=== PATIENT | female | born 1945 | race Caucasian/White ===

== ENCOUNTER 2016-03-30 12:46 | Day surgery (SDC) | payer MEDICARE ==
[2016-03-29 14:02] VITALS: BMI 25.4
[2016-03-30 13:23] VITALS: TEMP 97.4
[2016-03-30] MEDS ORDERED: LACTATED RINGERS 1,000 ML IV ONE (13:23)
[2016-03-30] MEDS ORDERED: LIDOCAINE 1% 20 ML VIAL (10MG/ML) FOR IV START INTRADERMA ONE (13:23)
[2016-03-30 13:26] LABS: Glucose,Whole Blood 86 mg/dL (75-99)
[2016-03-30] MEDS ORDERED: PROPOFOL 10 MG/ML 20 ML VIAL IV ONE (15:00)
[2016-03-30] MEDS ORDERED: LIDOCAINE 1% INJ 10MG/ML (20 ML MDV) ONE (15:00)
--- NOTE | 2016-03-30 15:06 | P.GSHP ---
History of Present Illness H&P Date: 03/30/16 Chief Complaint: GERD This a 70-year-old female who presents today for EGD. Patient a previous Mika fundal location approximately [address] [facility]. She has developed increasing reflux and GERD. Patient has had a previous esophagram shows slippage of her fundoplication as well as a small hiatal hernia. Past Medical History Past Medical History: Asthma, Cancer, GERD/Reflux, Hyperlipidemia, Pneumonia Additional Past Medical History / Comment(s): removed skin cancer, bells palsy 2 yrs ago,prednisone Feb 2016. History of Any Multi-Drug Resistant Organisms: None Reported Past Surgical History: Hysterectomy Additional Past Surgical History / Comment(s): jennifer eye cataract, right knee arthroscopy, Mika fundoplication Past Anesthesia/Blood Transfusion Reactions: Motion Sickness Past Psychological History: No Psychological Hx Reported Smoking Status: Former smoker Past Alcohol Use History: None Reported Additional Past Alcohol Use History / Comment(s): Patient was a smoker for 25 years of 1-2 packs per day and quit in 1991. She also gives history of alcohol abuse and has been sober for 35 years. Past Drug Use History: None Reported - Past Family History Mother Family Medical History: CVA/TIA, Myocardial Infarction ([place]) Additional Family Medical History / Comment(s): Mother at 73 from either massive myocardial infarction or CVA. Father Additional Family Medical History / Comment(s): Father at age 64 from emphysema. Brother(s) Additional Family Medical History / Comment(s): Patient has 4 brothers and one has diabetes,one brother committed suicide Sister(s) Additional Family Medical History / Comment(s): She has 2 sisters and one has paranoid schizophrenia. Medications and Allergies Home Medications Medication Instructions Recorded Confirmed Type Albuterol Nebulized [Ventolin 2.5 mg INHALATION RT-Q6H PRN 09/02/15 03/29/16 History Nebulized] Ascorbic Acid [Vitamin C] 500 mg PO DAILY 09/02/15 03/29/16 History Loratadine [Claritin] 10 mg PO HS 09/02/15 03/29/16 History Niacin 250 mg PO DAILY 09/02/15 03/29/16 History Pilocarpine [Salagen] 5 mg PO BID 09/02/15 03/29/16 History Simvastatin 20 mg PO HS 09/02/15 03/29/16 History Travoprost [Travatan Z 0.004%] 1 drop BOTH EYES HS 09/02/15 03/29/16 History Vitamin B Complex 1 tab PO DAILY 09/02/15 03/29/16 History clonazePAM [Clonazepam] 0.5 mg PO HS 09/02/15 03/29/16 History Calcium Carbonate/Vitamin D3 2 each PO HS 03/29/16 03/29/16 History [Calcium 600-Vit D3 400 Caplet] L.acidoph,Paracasei, B.lactis 1 each PO DAILY 03/29/16 03/29/16 History [Probiotic] Pantoprazole Sodium 40 mg PO HS 03/29/16 03/29/16 History Visionsheild Supplement 1 tab PO DAILY 03/29/16 03/29/16 History Allergies Allergy/AdvReac Type Severity Reaction Status Date / Time aspirin Allergy Rash/Hives Verified 03/29/16 13:57 Surgical - Exam Vital Signs Temp Pulse Resp BP Pulse Ox 97.4 F L 71 18 130/82 95 03/30/16 13:20 03/30/16 13:20 03/30/16 13:20 03/30/16 13:20 03/30/16 13:20 - General well developed, no distress - Eyes PERRL - ENT normal pinna - Neck no masses - Respiratory normal expansion - Cardiovascular Rhythm: regular - Abdomen Abdomen: soft, non tender Assessment and Plan Plan: GERD Slipped fundal plication We'll perform EGD.
--- NOTE | 2016-03-30 15:14 | P.OP ---
Date of Procedure: 03/30/16 Preoperative Diagnosis: GERD Postoperative Diagnosis: Slipped fundal plication Small hiatal hernia Procedure(s) Performed: EGD Anesthesia: MAC Surgeon: Gordo Berman Pathology: none sent Condition: stable Disposition: PACU Indications for Procedure: This a 70-year-old female who's had issues with GERD. She's had a previous Mika fundal plication performed 15 years ago in [facility]. Her recent esophagram shows evidence of a slipped fundoplication. Description of Procedure: The patient's placed on the endoscopy table in the lateral position. She received IV sedation. The gastroscope some placed oropharynx and passed into the esophagus and into the stomach. Scope was placed through the pylorus. The first and second portion of duodenum appeared normal. Scope was then brought back the antrum this appeared normal. Scope was retroflexed the remainder some appeared normal. There appeared to be evidence of a slipped fundoplication with fundal location being within a hiatal hernia. The distal esophagus appeared normal. The GE junction was at 38 cm. The proximal esophagus appeared normal. Scope was withdrawn for patient.
[2016-03-30 15:41] VITALS: BP 118/71; PULSE 68; RESP 16
== END 2016-03-30 15:55 | disposition home or self-care (01) ==
LOC: ORWHC2ENDO 12:46
PROVIDERS: ATTEND Surgery
DX: K91.89 Other postprocedural complications and disorders of digestive system (principal); K44.9 Diaphragmatic hernia without obstruction or gangrene; K21.9 Gastro-esophageal reflux disease without esophagitis; J45.909 Unspecified asthma, uncomplicated; E78.5 Hyperlipidemia, unspecified; Z88.6 Allergy status to analgesic agent; Z87.891 Personal history of nicotine dependence; Z87.01 Personal history of pneumonia (recurrent); Z79.899 Other long term (current) drug therapy; Z98.890 Other specified postprocedural states; Y83.8 Other surgical procedures as the cause of abnormal reaction of the patient, or of later complication, without mention of misadventure at the time of the procedure
CPT/HCPCS: 43235; J2001; J2704

== ENCOUNTER 2016-03-31 07:50 | Day surgery (SDC) | payer MEDICARE ==
[2016-03-29 10:32] VITALS: BMI 25.4
[~2016-03-31 07:50] MED LIST: DEXAMETHASONE SOD PHOSPHATE 10 MG/ML 1 ML VIAL IV ONE; LACTATED RINGERS 1,000 ML IV SCH; LIDOCAINE 1% 20 ML VIAL (10MG/ML) FOR IV START INTRADERMA PRN; MIDAZOLAM 2 MG/2 ML VIAL IV PRN; ONDANSETRON 4 MG/2 ML VIAL IVP ONE; SCOPOLAMINE 1.5MG/72HR PATCH TRANSDERM ONE
[2016-03-31] MEDS ORDERED: ceFAZolin 2 GM in SODIUM CHLORIDE 0.9% 100 ML IVPB STA (08:23)
[2016-03-31] MEDS ORDERED: HEPARIN SODIUM,PORCINE 5,000 UNIT/ML 1 ML VIAL SQ ONE (08:30)
[2016-03-31 08:38] LABS: Glucose,Whole Blood 90 mg/dL (75-99)
--- NOTE | 2016-03-31 09:20 | P.GSHP ---
History of Present Illness H&P Date: 03/31/16 Chief Complaint: T This a 70-year-old female who presents today for revision of her Mika fundoplication. The patient had her original fundoplication performed in [facility] Patient has developed a recurrent hiatal hernia and has a slipped fundoplication. She has had issues with GERD and dysphagia.The patient has had long-standing problems with reflux esophagitis. The patient underwent recent EGD is found have evidence of esophagitis. Patient has been well informed on the procedure of laparoscopic Mika fundoplication. The patient is aware the risk of the conversion to the open procedure, risk of injury to the stomach, liver and spleen. The patient is also a risk of recurrent GERD and dysphagia symptoms. The patient understands there is a postoperative diet of full liquids for 2 weeks after surgery. - Constitutional Constitutional: Reports as per HPI Past Medical History Past Medical History: Asthma, Cancer, GERD/Reflux, Hyperlipidemia, Pneumonia Additional Past Medical History / Comment(s): removed skin cancer, bells palsy 2 yrs ago,prednisone Feb 2016. History of Any Multi-Drug Resistant Organisms: None Reported Past Surgical History: Hysterectomy Additional Past Surgical History / Comment(s): jennifer eye cataract, right knee arthroscopy, Mika fundoplication Past Anesthesia/Blood Transfusion Reactions: Motion Sickness Past Psychological History: No Psychological Hx Reported Smoking Status: Former smoker Past Alcohol Use History: None Reported Additional Past Alcohol Use History / Comment(s): Patient was a smoker for 25 years of 1-2 packs per day and quit in 1991. She also gives history of alcohol abuse and has been sober for 35 years. Past Drug Use History: None Reported - Past Family History Mother Family Medical History: CVA/TIA, Myocardial Infarction ([place]) Additional Family Medical History / Comment(s): Mother at 73 from either massive myocardial infarction or CVA. Father Additional Family Medical History / Comment(s): Father at age 64 from emphysema. Brother(s) Additional Family Medical History / Comment(s): Patient has 4 brothers and one has diabetes,one brother committed suicide Sister(s) Additional Family Medical History / Comment(s): She has 2 sisters and one has paranoid schizophrenia. Medications and Allergies Home Medications Medication Instructions Recorded Confirmed Type Albuterol Nebulized [Ventolin 2.5 mg INHALATION RT-Q6H PRN 09/02/15 03/31/16 History Nebulized] Ascorbic Acid [Vitamin C] 500 mg PO DAILY 09/02/15 03/31/16 History Loratadine [Claritin] 10 mg PO HS 09/02/15 03/31/16 History Niacin 250 mg PO DAILY 09/02/15 03/31/16 History Pilocarpine [Salagen] 5 mg PO BID 09/02/15 03/31/16 History Simvastatin 20 mg PO HS 09/02/15 03/31/16 History Travoprost [Travatan Z 0.004%] 1 drop BOTH EYES HS 09/02/15 03/31/16 History Vitamin B Complex 1 tab PO DAILY 09/02/15 03/31/16 History clonazePAM [Clonazepam] 0.5 mg PO HS 09/02/15 03/31/16 History Calcium Carbonate/Vitamin D3 2 each PO HS 03/29/16 03/31/16 History [Calcium 600-Vit D3 400 Caplet] L.acidoph,Paracasei, B.lactis 1 each PO DAILY 03/29/16 03/31/16 History [Probiotic] Pantoprazole Sodium 40 mg PO HS 03/29/16 03/31/16 History Visionsheild Supplement 1 tab PO DAILY 03/29/16 03/31/16 History Allergies Allergy/AdvReac Type Severity Reaction Status Date / Time aspirin Allergy Rash/Hives Verified 03/31/16 08:03 Surgical - Exam Vital Signs Temp Pulse Resp BP Pulse Ox 97.7 F 77 16 131/83 94 L 03/31/16 08:18 03/31/16 08:18 03/31/16 08:18 03/31/16 08:18 03/31/16 08:18 - General well developed, no distress - Eyes PERRL - ENT normal pinna - Neck no masses - Respiratory normal expansion - Cardiovascular Rhythm: regular - Abdomen Abdomen: soft, non tender Assessment and Plan Plan: GERD. We will perform revision of laparoscopic Mika fundal plication.
[2016-03-31] MEDS ORDERED: NEOSTIGMINE 1 MG/ML 10 ML VIAL ONE (09:40)
[2016-03-31] MEDS ORDERED: SUCCINYLCHOLINE CHLORIDE 100 MG/5 ML SYR IV ONE (09:40)
[2016-03-31] MEDS ORDERED: PROPOFOL 10 MG/ML 20 ML VIAL IV ONE (09:40)
[2016-03-31] MEDS ORDERED: LIDOCAINE 1% INJ 10MG/ML (20 ML MDV) ONE (09:40)
[2016-03-31] MEDS ORDERED: METHYLENE BLUE 10 MG/ML 1 ML VIAL ONE (09:40)
[2016-03-31] MEDS ORDERED: ePHEDrine 50 MG/ML 1 ML AMP ONE (09:40)
[2016-03-31] MEDS ORDERED: GLYCOPYRROLATE 0.2 MG/ML 2 ML VIAL ONE (09:40)
[2016-03-31] MEDS ORDERED: ROCURONIUM BROMIDE 10 MG/ML 10 ML VIAL IV ONE (09:40)
[2016-03-31] MEDS ORDERED: fentaNYL (PF) 50 MCG/ML 2 ML AMP ONE (09:40)
[2016-03-31] MEDS ORDERED: MIDAZOLAM 2 MG/2 ML VIAL ONE (09:40)
[2016-03-31] MEDS ORDERED: BUPIVACAIN-EPI 0.25%-1:200,000 30 ML VIAL SQ ONE (10:15)
[2016-03-31] MEDS ORDERED: METHYLENE BLUE IV STA ×2 (10:58)
[2016-03-31] MEDS ORDERED: SODIUM CHLORIDE 0.9% IV STA ×2 (10:58)
[2016-03-31] MEDS ORDERED: NALOXONE 0.4 MG/ML 1 ML VIAL IV PRN (11:46)
[2016-03-31] MEDS ORDERED: HYDROmorphone 1 MG/ML 1 ML SYRINGE IVP PRN (11:46)
[2016-03-31] MEDS ORDERED: HYDROcodone/APAP 5-325MG 1 EACH TAB PO PRN (11:46)
[2016-03-31] MEDS ORDERED: ONDANSETRON 4 MG/2 ML VIAL IVP PRN (11:46)
[2016-03-31] MEDS ORDERED: LACTATED RINGERS 1,000 ML IV ONE (11:46)
--- NOTE | 2016-03-31 11:46 | P.OP ---
Date of Procedure: 03/31/16 Preoperative Diagnosis: GERD Dysphagia Postoperative Diagnosis: GERD Dysphagia Recurrent hiatal hernia with subsequent fundoplication Procedure(s) Performed: Laparoscopic Mika fundal plication with mesh repair of hiatal hernia Anesthesia: SIMONE Surgeon: Gordo Berman Estimated Blood Loss (ml): 25 Pathology: none sent Condition: stable Disposition: PACU Description of Procedure: The was placed on the operating table in the supine position. The patient received general anesthesia. And was placed in dorsal lithotomy position. The patient was prepped and draped in the usual sterile fashion. The skin incision sites were anesthetized with 1% local Xylocaine. The skin was incised in the left periumbilical area and then using a blade less 5 mm trocar under direct visualization panel cavity was entered. After adequate insufflation the laparoscope was then placed into the peritoneal cavity. Next a 5 mm trochars placed in the right epigastric position. Another 5 millimeter trocar the right lateral position. Another 5 millimeter trocar in the left lateral position a 5 mm trocar is placed in the left epigastric position. And then the initial 5 mm trocar was exchanged for a 10 mm trocar. The left lateral lobe liver was retracted. There were extensive adhesions between the stomach and liver. These were lysed with sharp dissection and the Harmonic scissors. The hernia was seen. The previous fundoplication wrap was seen to be in the chest. This was brought down after the stomach and esophagus were mobilized. The crural defect was then dissected using the Harmonic scissors device. A 360 crural dissection was performed the esophagus stomach was reduced back into the peritoneal Cavity. The crural defect was then closed using 2-0 Ethibond suture. Next the previous fundal plication was taken and sharp dissection.. and then a 58-Zambian bougie dilator was placed oropharynx passed into the esophagus and stomach the fundal plication wrap was then performed by grasping the fundus posteriorly and bringing it around the esophagus and 180 stomach fundoplication was then performed using 2-0 Ethibond suture. Care was taken that the esophagus was in the peritoneal cavity.. There was no injury seen to the stomach or esophagus. The stomach and esophagus were filled with 6 mL of methylene blue normal saline. There is no extravasation or leak. The dilator was then withdrawn. The abdomen was irrigated there is no bleeding seen. The trochars were then withdrawn and then skin incision sites were closed using 3-0 Monocryl suture Steri-Strips are applied. Patient thought procedure well and sent to recovery room in stable condition.
[2016-03-31] MEDS: HYDROmorphone 1 MG/ML 1 ML SYRINGE IVP PRN ×2 (11:56→12:01)
[2016-03-31] MEDS ORDERED: ALBUTEROL NEBULIZED 2.5 MG/3 ML INHALATION PRN (13:44)
--- NOTE | 2016-03-31 13:44 | P.CONS ---
History of Present Illness - Reason for Consult Consult date: 03/31/16 Medical management Requesting physician: Gordo Berman - Chief Complaint Post Mika fundoplication revision. - History of Present Illness This is a 70-year-old female patient of mine. She has a past medical history for COPD, gastroesophageal reflux disease, hyperlipidemia, skin cancer, Young's palsy, patient had a Mika fundoplication that was done back in [facility] many years ago and she had an evidence of severe esophagitis and recent EGD that was done by Dr. Berman subsequent she underwent the Mika fundoplication revision today and we were asked to see the patient for medical management. Patient denies any chest pain, short of breath, she has no abdominal pain, nausea, vomiting, diarrhea. Patient is complaining of pain in both shoulders and it was explained for the patient that this is coming from laparoscopic inactive gase. Review of Systems Constitutional: Denies anorexia, Denies chronic headaches, Denies fever, Denies lethargy, Denies weakness, Denies weight gain, Denies weight loss Eyes: denies blurred vision, denies bulging eye, denies decreased vision Ears: deny: decreased hearing Ears, nose, mouth and throat: Denies dysphagia, Denies neck lump, Denies sore throat, Denies vertigo Cardiovascular: Denies chest pain, Denies dyspnea on exertion, Denies edema, Denies phlebitis, Denies rapid heart beat, Denies shortness of breath, Denies syncope Respiratory: Denies cough, Denies cough with sputum, Denies home oxygen, Denies sleep apnea, Denies snoring, Denies wheezing Gastrointestinal: Reports heartburn, Denies abdominal pain, Denies belching, Denies bloating, Denies hematemesis, Denies melena, Denies nausea, Denies vomiting Genitourinary: Denies dysuria, Denies hematuria Musculoskeletal: Denies myalgias Musculoskeletal: absent: ankle pain, ankle stiffness, ankle swelling, elbow pain , elbow stiffness, elbow swelling, foot pain, foot stiffness, foot swelling, hand pain, hand stiffness, hand swelling, hip pain, hip stiffness, hip swelling , knee pain, knee stiffness, knee swelling, shoulder pain, shoulder stiffness, shoulder swelling, wrist pain, wrist stiffness, wrist swelling Integumentary: Denies pruritus, Denies rash Neurological: Denies numbness, Denies weakness Psychiatric: Denies anxiety, Denies depression Endocrine: Denies fatigue, Denies weight change Past Medical History Past Medical History: Asthma, Cancer, GERD/Reflux, Hyperlipidemia, Pneumonia Additional Past Medical History / Comment(s): removed skin cancer, bells palsy 2 yrs ago,prednisone Feb 2016. History of Any Multi-Drug Resistant Organisms: None Reported Past Surgical History: Hysterectomy Additional Past Surgical History / Comment(s): jennifer eye cataract, right knee arthroscopy, Mika fundoplication Past Anesthesia/Blood Transfusion Reactions: Motion Sickness Past Psychological History: No Psychological Hx Reported Smoking Status: Former smoker Past Alcohol Use History: None Reported Additional Past Alcohol Use History / Comment(s): Patient was a smoker for 25 years of 1-2 packs per day and quit in 1991. She also gives history of alcohol abuse and has been sober for 35 years. Past Drug Use History: None Reported - Past Family History Mother Family Medical History: CVA/TIA, Myocardial Infarction ([place]) Additional Family Medical History / Comment(s): Mother at 73 from either massive myocardial infarction or CVA. Father Additional Family Medical History / Comment(s): Father at age 64 from emphysema. Brother(s) Additional Family Medical History / Comment(s): Patient has 4 brothers and one has diabetes,one brother committed suicide Sister(s) Additional Family Medical History / Comment(s): She has 2 sisters and one has paranoid schizophrenia. Medications and Allergies Home Medications Medication Instructions Recorded Confirmed Type Albuterol Nebulized [Ventolin 2.5 mg INHALATION RT-Q6H PRN 09/02/15 03/31/16 History Nebulized] Ascorbic Acid [Vitamin C] 500 mg PO DAILY 09/02/15 03/31/16 History Loratadine [Claritin] 10 mg PO HS 09/02/15 03/31/16 History Niacin 250 mg PO DAILY 09/02/15 03/31/16 History Pilocarpine [Salagen] 5 mg PO BID 09/02/15 03/31/16 History Simvastatin 20 mg PO HS 09/02/15 03/31/16 History Travoprost [Travatan Z 0.004%] 1 drop BOTH EYES HS 09/02/15 03/31/16 History Vitamin B Complex 1 tab PO DAILY 09/02/15 03/31/16 History clonazePAM [Clonazepam] 0.5 mg PO HS 09/02/15 03/31/16 History Calcium Carbonate/Vitamin D3 2 each PO HS 03/29/16 03/31/16 History [Calcium 600-Vit D3 400 Caplet] L.acidoph,Paracasei, B.lactis 1 each PO DAILY 03/29/16 03/31/16 History [Probiotic] Pantoprazole Sodium 40 mg PO HS 03/29/16 03/31/16 History Visionsheild Supplement 1 tab PO DAILY 03/29/16 03/31/16 History Allergies Allergy/AdvReac Type Severity Reaction Status Date / Time aspirin Allergy Rash/Hives Verified 03/31/16 13:36 Physical Exam Vitals: Vital Signs Temp Pulse Pulse Resp BP BP Pulse Ox 03/31/16 12:45 97.0 F L 63 16 130/78 99 03/31/16 12:26 71 16 132/64 99 03/31/16 12:15 74 17 127/71 98 03/31/16 12:00 76 16 123/68 99 03/31/16 11:51 98.2 F 80 16 131/70 98 03/31/16 08:18 97.7 F 77 16 131/83 94 L Intake and Output 03/30/16 03/31/16 03/31/16 22:59 06:59 14:59 Intake Total 1500 Output Total 15 Balance 1485 Intake: IV 1500 Output: Estimated Blood Loss 15 - Constitutional General appearance: no acute distress - EENT Eyes: anicteric sclerae, PERRLA, no ptosis, no scleral icterus, normal appearance ENT: hearing grossly normal, normal oropharynx, no thrush Ears: bilateral: normal - Neck Neck: no lymphadenopathy, normal ROM, no rigidity, no stridor, no thyromegaly Carotids: bilateral: upstroke normal Thyroid: bilateral: normal size - Respiratory Respiratory: bilateral: diminished, negative: dullness, rales, rhonchi, wheezing , prolonged expiration, prolonged inspiration - Cardiovascular Rhythm: regular Heart sounds: normal: S1, S2 Abnormal Heart Sounds: no systolic murmur, no rub, no S3 Gallop, no S4 Gallop, no click - Gastrointestinal General gastrointestinal: decreased bowel sounds, soft, no splenomegaly, no tenderness, no umbilical hernia, no ventral hernia - Integumentary Integumentary: normal, normal turgor - Neurologic Neurologic: CNII-XII intact - Musculoskeletal Musculoskeletal: strength equal bilaterally - Psychiatric Psychiatric: A&O x's 3, appropriate affect, intact judgment & insight Assessment and Plan Plan: Assessment and plan: 1. Post operative day 0 status post Mika fundoplication. Continue patient on spirometer to reduce the incidence of atelectasis and hospital-acquired pneumonia, continue current DVT prophylaxis, pain management as outlined by general surgery, patient is going for an esophagram later on today. 2. COPD, stable. Patient normally on Ventolin inhaler every 6 hours as needed. 3. Gastroesophageal reflux disease. continue Protonix 40 mg orally once a daily. 4. Hyperlipidemia. Continue Zocor 10 mg daily. 5. History of skin cancer, stable. 6. History of Young's palsy, stable. 7. ALLERGIC rhinitis. Hold off Claritin for now. 8. Glaucoma. Continue current eyedrops. 9. DVT prophylaxis. Bilateral knee-high HAMZAH hose, bilateral SCDs. 10. GI prophylaxis. Continue PPI. 11. Thank you for this consult we will follow the patient with you.
--- NOTE | 2016-03-31 16:21 | FL ---
EXAMINATION TYPE: FL UGI w esophagus DATE OF EXAM: 03/31/2016 4:04 PM COMPARISON: 03/09/2016 HISTORY: Post Rupesh fundoplasty TECHNIQUE: A single/double contrast UGI study is performed. FINDINGS: Surgery Assistant image of the abdomen shows no gross abnormality. There is no evidence of extravasation. There are tertiary contractions of the esophagus and mild reanna y at the level of GE junction. There is some contrast spilling into the stomach without evidence of c omplete obstruction. Fluoroscopy of 32 seconds provided. IMPRESSION: 1. Moderate delay at the GE junction. No extravasation.
[2016-03-31] MEDS: traMADol 50 MG TAB PO PRN (17:08)
--- NOTE | 2016-03-31 17:24 | P.CNPUL ---
History of Present Illness Consult date: 03/31/16 Requesting physician: Gordo Berman Reason for consult: dyspnea Chief complaint: Chronic cough History of present illness: This is a very pleasant 70-year-old female patient who follows with Dr. Munroe as her primary care physician. She has a history of hyperlipidemia, gastroesophageal reflux, skin cancer, Young's palsy, asthma. Back in December 2015 she developed increasing cough congestion and shortness of breath. She was treated with antibiotics 3 without significant improvement. A computed tomography scan of the chest in February 2016 revealed some right lower lobe atelectasis suspected underlying pneumonia. She was referred to Dr. Arredondo whom she had seen in our office recently. He did appropriate testing and told the patient she does not have COPD. She may have some mild intermittent asthma which is exacerbated by her acid reflux. She has been maintained on albuterol only. Her Singulair was discontinued. She is not on any maintenance inhalers. She has a history of previous Mika fundoplication several years ago secondary to severe esophagitis. Based on her recent symptoms and chronic cough despite multiple rounds of antibiotics she was referred to Dr. Berman who performed a revision of her Mika fundoplication today. She is seen today in consultation. She is currently awake and alert in no acute distress. She denies any worsening shortness of breath, cough or congestion. She has some pain on deep inhalation but had not required any significant pain medications. She had a postop barium swallow which revealed moderate delay at the GE junction but no extravasation. She is maintaining good O2 saturations in the upper 90s to 100% on 2 L per nasal cannula. She has been afebrile. No pulmonary complaints. Review of Systems 14 point review of system was conducted. All negative other than as mentioned in HPI. Past Medical History Past Medical History: Asthma, Cancer, GERD/Reflux, Hyperlipidemia, Pneumonia Additional Past Medical History / Comment(s): removed skin cancer, bells palsy 2 yrs ago,prednisone Feb 2016. History of Any Multi-Drug Resistant Organisms: None Reported Past Surgical History: Hysterectomy Additional Past Surgical History / Comment(s): jennifer eye cataract, right knee arthroscopy, Mika fundoplication Past Anesthesia/Blood Transfusion Reactions: Motion Sickness Past Psychological History: No Psychological Hx Reported Smoking Status: Former smoker Past Alcohol Use History: None Reported Additional Past Alcohol Use History / Comment(s): Patient was a smoker for 25 years of 1-2 packs per day and quit in 1991. She also gives history of alcohol abuse and has been sober for 35 years. Past Drug Use History: None Reported - Past Family History Mother Family Medical History: CVA/TIA, Myocardial Infarction (ID) Additional Family Medical History / Comment(s): Mother at 73 from either massive myocardial infarction or CVA. Father Additional Family Medical History / Comment(s): Father at age 64 from emphysema. Brother(s) Additional Family Medical History / Comment(s): Patient has 4 brothers and one has diabetes,one brother committed suicide Sister(s) Additional Family Medical History / Comment(s): She has 2 sisters and one has paranoid schizophrenia. Medications and Allergies Home Medications Medication Instructions Recorded Confirmed Type Albuterol Nebulized [Ventolin 2.5 mg INHALATION RT-Q6H PRN 09/02/15 03/31/16 History Nebulized] Ascorbic Acid [Vitamin C] 500 mg PO DAILY 09/02/15 03/31/16 History Loratadine [Claritin] 10 mg PO HS 09/02/15 03/31/16 History Niacin 250 mg PO DAILY 09/02/15 03/31/16 History Pilocarpine [Salagen] 5 mg PO BID 09/02/15 03/31/16 History Simvastatin 20 mg PO HS 09/02/15 03/31/16 History Travoprost [Travatan Z 0.004%] 1 drop BOTH EYES HS 09/02/15 03/31/16 History Vitamin B Complex 1 tab PO DAILY 09/02/15 03/31/16 History clonazePAM [Clonazepam] 0.5 mg PO HS 09/02/15 03/31/16 History Calcium Carbonate/Vitamin D3 2 each PO HS 03/29/16 03/31/16 History [Calcium 600-Vit D3 400 Caplet] L.acidoph,Paracasei, B.lactis 1 each PO DAILY 03/29/16 03/31/16 History [Probiotic] Pantoprazole Sodium 40 mg PO HS 03/29/16 03/31/16 History Visionsheild Supplement 1 tab PO DAILY 03/29/16 03/31/16 History Allergies Allergy/AdvReac Type Severity Reaction Status Date / Time aspirin Allergy Rash/Hives Verified 03/31/16 13:36 Physical Exam Vitals: Vital Signs Temp Pulse Pulse Resp BP BP Pulse Ox 03/31/16 14:30 75 128/81 03/31/16 14:00 68 18 130/82 98 03/31/16 13:30 74 16 129/86 03/31/16 13:15 65 16 127/75 100 03/31/16 13:00 66 16 126/80 100 03/31/16 12:45 97.0 F L 63 16 130/78 99 03/31/16 12:26 71 16 132/64 99 03/31/16 12:15 74 17 127/71 98 03/31/16 12:00 76 16 123/68 99 03/31/16 11:51 98.2 F 80 16 131/70 98 03/31/16 08:18 97.7 F 77 16 131/83 94 L Intake and Output 03/31/16 03/31/16 03/31/16 06:59 14:59 22:59 Intake Total 1530 Output Total 15 100 Balance 1515 -100 Intake: IV 1500 Oral 30 Output: Urine 100 Estimated Blood Loss 15 Other: Weight 71.668 kg Patient Weight 04/01/16 06:59 Weight 71.668 kg GENERAL EXAM: Alert, comfortable in no apparent distress. HEAD: Normocephalic. EYES: Normal reaction of pupils, equal size. NOSE: Clear with pink turbinates. THROAT: No erythema or exudates. NECK: No masses, no JVD. CHEST: No chest wall deformity. LUNGS: Equal air entry with no crackles, wheeze, rhonchi or dullness. CVS: S1 and S2 normal with no audible murmurs, regular rhythm. ABDOMEN: Soft, tender to palpation. Laparoscopic surgical sites are clean dry well approximated. SPINE: No scoliosis or deformity SKIN: No rashes CENTRAL NERVOUS SYSTEM: No focal deficits, tone is normal in all 4 extremities. Extremities: There is no significant peripheral edema. No clubbing, no cyanosis. Peripheral pulses are intact. Assessment and Plan Plan: Impression: #1 Chronic cough secondary to acid reflux. Status post revision of a Rupesh fundoplication. Postoperative day #0. #2 Mild intermittent chronic bronchial asthma, currently inactive and stable. #3 Recent suspected right lower lobe atelectasis/pneumonia treated in the outpatient setting. #4 Hyperlipidemia. Plan: The patient was seen and evaluated by Dr. Betancur. The patient currently has no pulmonary complaints. We have requested incentive spirometer and encouraged patient regarding its increased use and cough and deep breathing exercises. We' ll increase her activity as tolerated. She'll have albuterol nebulized treatments available if needed. We will obtain a chest x-ray in the a.m. We' ll continue to follow make further recommendations based on her clinical status.
[2016-03-31] MEDS: PILOCARPINE 5 MG TAB PO SCH (20:50)
[2016-03-31] MEDS ORDERED: ATORVASTATIN 10 MG TAB PO SCH (21:00)
[2016-03-31] MEDS ORDERED: clonazePAM 0.5 MG TAB PO SCH (21:00)
[2016-03-31] MEDS ORDERED: PANTOPRAZOLE 40 MG TABLET PO SCH (21:00)
[2016-03-31] MEDS ORDERED: LATANOPROST 0.005% OPHTH DROPS 2.5 ML BTL BOTH EYES SCH (21:00)
[2016-04-01] MEDS: traMADol 50 MG TAB PO PRN ×2 (00:27→08:14)
[2016-04-01] MEDS ORDERED: Pre Op ABX Message 1 EACH MISC MISCELLANE ONE (05:00)
[2016-04-01 06:52] LABS: Basophils % (A) 0 %; CH 30.7; CHCM 34.8; Eosinophils % (A) 0 %; HCT 36.3 % (34.0-46.0); HDW 2.45; HGB 12.3 gm/dL (11.4-16.0); Luc # (Auto) 0.16; Luc % (Auto) 2; Lymphocytes # (A) 1.3 k/uL (1.0-4.8); Lymphocytes % (A) 16 %; MCHC 33.9 g/dL (31.0-37.0); MCV 88.5 fL (80.0-100.0); Mean Platelet Volume 7.9; Monocytes # (A) 0.6 k/uL (0-1.0); Monocytes % (A) 7 %; Neutrophils # (A) 6.3 k/uL (1.3-7.7); Neutrophils % (A) 75 %; RDW 12.9 % (11.5-15.5); WBC 8.4 k/uL (3.8-10.6); WBC (Perox) 8.64
[2016-04-01 07:07] LABS: Anion Gap 7 mmol/L; Blood Urea Nitrogen 12 mg/dL (7-17); Carbon Dioxide 27 mmol/L (22-30); Chloride 106 mmol/L (98-107); Glucose 101 mg/dL (74-99); Non-African American GFR(MDRD) 58 (>60 ml/min/1.73 sqM); Potassium 4.1 mmol/L (3.5-5.1); Sodium 140 mmol/L (137-145)
--- NOTE | 2016-04-01 08:43 | XR ---
EXAMINATION TYPE: XR chest 1V portable DATE OF EXAM: 04/01/2016 8:39 AM HISTORY: Shortness of breath. COMPARISON: 02/16/2016 TECHNIQUE: Single view of the chest is submitted. FINDINGS: Demonstrated are scattered senescent parenchymal change. There is no evidence for focal infiltrate. The heart is stable. Hilar and mediastinal structures are within normal limits. Degenerative changes are seen of the dorsal spine. IMPRESSION: 1. Chronic changes without evidence for acute pulmonary disease.
[2016-04-01] MEDS: PILOCARPINE 5 MG TAB PO SCH (08:49)
[2016-04-01 11:58] VITALS: BP 127/72; RESP 20; TEMP 97.7
[2016-04-01 13:21] VITALS: PULSE 89
--- NOTE | 2016-04-01 13:44 | P.DS ---
Providers Date of admission: 03/31/2016 Expected date of discharge: 04/01/16 Attending physician: Gordo Berman Consults: 03/31/16 11:46 Consult Physician Routine Consulting Provider: Demetri Arredondo Consult Reason/Comments: Aspiration pneumonia, GERD Do you want consulting provider notified?: Yes Consult Physician Routine Consulting Provider: Penny Munroe Consult Reason/Comments: Medical management Do you want consulting provider notified?: Yes Primary care physician: Penny Munroe Hospital Course: Patient is a 70-year-old female with medical history significant for fundoplication performed in [facility] several years ago. Patient developed a recurrent current hiatal hernia and has a slipped fundoplication. Patient had problems with GERD and dysphagia. Patient presented to the hospital for elective laparoscopic Rupesh fundoplication with mesh repair of hiatal hernia. Patient tolerated procedure well. Postop barium swallow with evidence of moderate delay at the GE junction but extravasation. Patient had an uneventful postop recovery with no complaints of dysphagia and tolerating diet. Patient was deemed stable for discharge to home with follow-up in the outpatient setting as directed. Discharge diagnoses: 1. GERD 2. Dysphagia. 3. Recurrent hiatal hernia with subsequent fundoplication. 4. Status post laparoscopic Rupesh fundoplication with mesh repair of hiatal hernia. The above impression and plan have been discussed and directed by Dr. Berman. Ted VIEIRA acting as scribe for Dr. Berman. Pertinent Studies: Upper GI/barium swallow x-ray; chest x-ray Procedures: Laparoscopic Mika fundoplication with mesh repair of hiatal hernia Patient Condition at Discharge: Good Plan - Discharge Summary New Discharge Prescriptions: HYDROcodone/APAP 7.5-325MG [Alden 7.5-325] 1 tab PO Q6HR PRN #28 tab PRN Reason: Pain Discharge Medication List Albuterol Nebulized [Ventolin Nebulized] 2.5 mg INHALATION RT-Q6H PRN 09/02/15 [ History] Ascorbic Acid [Vitamin C] 500 mg PO DAILY 09/02/15 [History] Loratadine [Claritin] 10 mg PO HS 09/02/15 [History] Niacin 250 mg PO DAILY 09/02/15 [History] Pilocarpine [Salagen] 5 mg PO BID 09/02/15 [History] Simvastatin 20 mg PO HS 09/02/15 [History] Travoprost [Travatan Z 0.004%] 1 drop BOTH EYES HS 09/02/15 [History] Vitamin B Complex 1 tab PO DAILY 09/02/15 [History] clonazePAM [Clonazepam] 0.5 mg PO HS 09/02/15 [History] Calcium Carbonate/Vitamin D3 [Calcium 600-Vit D3 400 Caplet] 2 each PO HS [History] L.acidoph,Paracasei, B.lactis [Probiotic] 1 each PO DAILY 03/29/16 [History] Visionsheild Supplement 1 tab PO DAILY 03/29/16 [History] HYDROcodone/APAP 7.5-325MG [Alden 7.5-325] 1 tab PO Q6HR PRN #28 tab 03/31/16 [ Rx] Follow up Appointment(s)/Referral(s): Penny Munroe MD [Primary Care Provider] - 1 Week Gordo Berman MD [STAFF PHYSICIAN] - 2 Weeks Patient Instructions/Handouts: *Surgery [facility] - ([facility]) Lap Mika Fundiplication Post-Op Instructions Activity/Diet/Wound Care/Special Instructions: No heavy lifting, pushing, or pulling items greater than 10 pounds. Full liquid diet for 2 weeks. No caffeinated beverages or straws. Shower daily, no soaking in bath tubs, pools, or hot tubs. No driving while taking pain medication. Notify surgeon with any signs or symptoms of infection, increased pain, or not tolerating diet. OK TO MALL WALK TO TOLERANCE, NO HEAVY LIFTING RETURN TO DR. SOONER FOR ANY PROBLEMS OR CONCERNS. IE FEVER, WORSENING COUGH, SHORTNESS OR BREATH, LETHARGY, REDNESS, UNUSUAL DRNG OR REDNESS FROM INCISION SITES USE INCENTIVE SPIROMETRY AT HOME. Discharge Disposition: HOME SELF-CARE
--- NOTE | 2016-04-01 15:34 | P.PN ---
Subjective This is a very pleasant 70-year-old female patient who follows with Dr. Munroe as her primary care physician. She has a history of hyperlipidemia, gastroesophageal reflux, skin cancer, Young's palsy, asthma. Back in December 2015 she developed increasing cough congestion and shortness of breath. She was treated with antibiotics 3 without significant improvement. A computed tomography scan of the chest in February 2016 revealed some right lower lobe atelectasis suspected underlying pneumonia. She was referred to Dr. Arredondo whom she had seen in our office recently. He did appropriate testing and told the patient she does not have COPD. She may have some mild intermittent asthma which is exacerbated by her acid reflux. She has been maintained on albuterol only. Her Singulair was discontinued. She is not on any maintenance inhalers. She has a history of previous Mika fundoplication several years ago secondary to severe esophagitis. Based on her recent symptoms and chronic cough despite multiple rounds of antibiotics she was referred to Dr. Berman who performed a revision of her Mika fundoplication yesterday. She is seen again today 04/01/2016 in follow-up. She is awake and alert in no acute distress. She has no pulmonary complaints. She's been maintaining good O2 saturations in the 90s on room air. No significant cough or congestion. No chills or night sweats. She is anxious to go home. Objective - Vital Signs Vital signs: Vital Signs Temp 97.7 F 04/01/16 11:35 Pulse 89 04/01/16 13:00 Resp 20 04/01/16 11:35 BP 127/72 04/01/16 11:35 Pulse Ox 91 L 04/01/16 13:00 Intake & Output 03/31/16 04/01/16 04/01/16 18:59 06:59 18:59 Intake Total 1530 300 200 Output Total 115 400 Balance 1415 -100 200 Weight 71.668 kg Intake: IV 1500 Oral 30 300 200 Output: Urine 100 400 Estimated Blood Loss 15 Other: Voiding Method Toilet # Voids 1 1 - Exam GENERAL EXAM: Alert, active, comfortable in no apparent distress. HEAD: Normocephalic. EYES: Normal reaction of pupils, equal size. NOSE: Clear with pink turbinates. THROAT: No erythema or exudates. NECK: No masses, no JVD. CHEST: No chest wall deformity. LUNGS: Equal air entry with no crackles, wheeze, rhonchi or dullness. CVS: S1 and S2 normal with no audible mumurs, regular rhythm. ABDOMEN: Soft, normal bowel sounds, no guarding or rigidity. Surgical sites are clean dry well approximated. SPINE: No scoliosis or deformity SKIN: No rashes CENTRAL NERVOUS SYSTEM: No focal deficits, tone is normal in all 4 extremities. Extremities: There is no significant peripheral edema no clubbing no cyanosis peripheral pulses are intact. - Labs CBC & Chem 7: 04/01/16 06:37 04/01/16 06:37 Labs: Abnormal Lab Results - Last 24 Hours (Table) 04/01/16 Range/Units 06:37 Glucose 101 H (74-99) mg/dL Assessment and Plan Plan: Impression: #1 Chronic cough secondary to acid reflux. Status post revision of a Mika fundoplication. Postoperative day #1. #2 Mild intermittent chronic bronchial asthma, currently inactive and stable. #3 Recent suspected right lower lobe atelectasis/pneumonia treated in the outpatient setting. #4 Hyperlipidemia. Plan: The patient was seen and evaluated by Dr. Betancur. The patient currently has no pulmonary complaints. She's been up ambulating without significant shortness of breath. No cough or congestion. She is doing well at the incentive spirometer. She is cleared for discharge from the pulmonary standpoint. She'll follow-up with Dr. Arredondo in our office as scheduled. She is encouraged to call sooner with any pulmonary symptoms or other questions or concerns.
--- NOTE | 2016-04-08 15:50 | P.PN ---
Subjective This is a 70-year-old female patient of [facility]. She has a past medical history for COPD, gastroesophageal reflux disease, hyperlipidemia, skin cancer, Young's palsy, patient had a Mika fundoplication that was done back in [facility] many years ago and she had an evidence of severe esophagitis and recent EGD that was done by Dr. Berman subsequent she underwent the Mika fundoplication revision today and we were asked to see the patient for medical management. Patient denies any chest pain, short of breath, she has no abdominal pain, nausea, vomiting, diarrhea. Patient is complaining of pain in both shoulders and it was explained for the patient that this is coming from laparoscopic inactive gas. Pulse ox is 91% on room air. Chest x-ray shows chronic changes. Shoulder ache is gone. Patient is scheduled for discharge home today. . Objective - Vital Signs Vital signs: Vital Signs Temp 98.3 F 04/01/16 08:00 Pulse 84 04/01/16 08:00 Resp 16 04/01/16 08:00 BP 123/71 04/01/16 08:00 Pulse Ox 91 L 04/01/16 08:00 Intake & Output 03/31/16 04/01/16 04/01/16 18:59 06:59 18:59 Intake Total 1530 300 Output Total 115 400 Balance 1415 -100 Weight 71.668 kg Intake: IV 1500 Oral 30 300 Output: Urine 100 400 Estimated Blood Loss 15 Other: Voiding Method Toilet # Voids 1 - Exam General appearance: no acute distress - EENT Eyes: anicteric sclerae, PERRLA, no ptosis, no scleral icterus, normal appearance ENT: hearing grossly normal, normal oropharynx, no thrush Ears: bilateral: normal - Neck Neck: no lymphadenopathy, normal ROM, no rigidity, no stridor, no thyromegaly Carotids: bilateral: upstroke normal Thyroid: bilateral: normal size - Respiratory Respiratory: bilateral: diminished, negative: dullness, rales, rhonchi, wheezing , prolonged expiration, prolonged inspiration - Cardiovascular Rhythm: regular Heart sounds: normal: S1, S2 Abnormal Heart Sounds: no systolic murmur, no rub, no S3 Gallop, no S4 Gallop, no click - Gastrointestinal General gastrointestinal: decreased bowel sounds, soft, no splenomegaly, no tenderness, no umbilical hernia, no ventral hernia - Integumentary Integumentary: normal, normal turgor - Neurologic Neurologic: CNII-XII intact - Musculoskeletal Musculoskeletal: strength equal bilaterally - Psychiatric Psychiatric: A&O x's 3, appropriate affect, intact judgment & insight - Labs CBC & Chem 7: 04/01/16 06:37 04/01/16 06:37 Labs: Abnormal Lab Results - Last 24 Hours (Table) 04/01/16 Range/Units 06:37 Glucose 101 H (74-99) mg/dL Assessment and Plan Plan: 1. Status post Mika fundoplication. Continue patient on spirometer to reduce the incidence of atelectasis and hospital-acquired pneumonia, continue current DVT prophylaxis, pain management as outlined by general surgery, patient is going for an esophagram later on today. 2. COPD, stable. Patient normally on Ventolin inhaler every 6 hours as needed. 3. Gastroesophageal reflux disease. continue Protonix 40 mg orally once a daily. 4. Hyperlipidemia. Continue Zocor 10 mg daily. 5. History of skin cancer, stable. 6. History of Young's palsy, stable. 7. ALLERGIC rhinitis. Hold off Claritin for now. 8. Glaucoma. Continue current eyedrops. 9. DVT prophylaxis. Bilateral knee-high HAMZAH hose, bilateral SCDs. 10. GI prophylaxis. Continue PPI. Impression and plan of care have been directed as dictated by the signing physician. Patti Cannon nurse practitioner acting as scribe for signing physician. Time with Patient: Greater than 30
== END 2016-04-01 13:14 | disposition home or self-care (01) ==
LOC: OR 07:50 → 6PED 11:40 → OR 04-01 13:14
PROVIDERS: ATTEND Surgery
DX: K44.9 Diaphragmatic hernia without obstruction or gangrene (principal); K91.89 Other postprocedural complications and disorders of digestive system; R13.10 Dysphagia, unspecified; K21.9 Gastro-esophageal reflux disease without esophagitis; E78.5 Hyperlipidemia, unspecified; Z87.891 Personal history of nicotine dependence; G51.0 Bell's palsy; Z79.899 Other long term (current) drug therapy; Z88.6 Allergy status to analgesic agent
CPT/HCPCS: 43282; 80048; 85025; 71010; 74240; C1781; J2250; J1644; J1100; J2710; J0690; J2405; J2001; Q9968; J3010; J1170; J0330; J2704

== ENCOUNTER → 2017-10-25 | Outpatient (CLI) | payer MEDICARE ==
--- NOTE | 2017-10-25 12:59 | FL ---
EXAMINATION TYPE: Esophagram- Limited UGI DATE OF EXAM: 10/25/2017 LIMITED UGI-ESOPHAGRAM: CLINICAL HISTORY: History of Rupesh fundoplication surgery March 31, 2016 with recurrent epigastri c pain. TECHNIQUE: Limited esophagram is performed utilizing 2-10 oz of thin liquid barium. A total of 8 sec onds of fluoroscopic time was utilized during procedure. 11 spot images are acquired. Comparison: Prior upper GI March 31, 2016. FINDINGS: The patient swallowed contrast without difficulty or delay. Esophageal peristalsis and mo tility are within normal limits. There is good flow of contrast along the diaphragmatic hiatus into t he stomach, there is no evidence of contrast extravasation to suggest leak. No recurrent hiatal herni a is seen. Patient remains asymptomatic. IMPRESSION: No evidence of recurrent hiatal hernia or significant obstruction status post Rupesh fund oplication surgery March 31, 2016.
== END | disposition home or self-care (01) ==
LOC: RADFLMAIN 11:29
PROVIDERS: ATTEND Internal Medicine Geriatric Medicine
DX: R13.10 Dysphagia, unspecified (principal); Z98.890 Other specified postprocedural states
CPT/HCPCS: 74220

== ENCOUNTER → 2018-02-16 | Outpatient (CLI) | payer MEDICARE | END | disposition home or self-care (01) | LOC: LABWHC1 15:02 | PROVIDERS: ATTEND Ophthalmology | DX: H47.20 Unspecified optic atrophy (principal) | CPT/HCPCS: 36415; 82565; 84520 ==

== ENCOUNTER → 2018-02-19 | Outpatient (CLI) | payer MEDICARE ==
--- NOTE | 2018-02-19 21:36 | MR ---
EXAMINATION TYPE: MR brain/orbits wo/w con DATE OF EXAM: 02/19/2018 COMPARISON: Brain 06/03/2013 HISTORY: 72-year-old female Optic Atrophy Technique: Multiplanar, multisequence images of the brain were obtained before and after administrati on of 6.5 mL intravenous Gadavist gadolinium contrast. Diffusion-weighted imaging was performed. Add itional pre and postcontrast coned down sequences through the orbits. FINDINGS: Diffusion weighted images demonstrate no evidence of an acute ischemic lesion in the brain. The ventricles are of normal caliber. Mild generalized supratentorial volume loss. Stable 1.1 cm homogeneously enhancing extra-axial lesion along the right frontoparietal junction. The re is no evidence of an acute intracranial hemorrhage, infarct, mass effect, or an extra-axial fluid collection. T2/FLAIR weighted sequences show trace organ right white matter change in the cerebral hemispheres wi th less than 5 foci on each side, likely relating to chronic small vessel ischemic disease. The optic nerves are symmetrical bilaterally. There is no enlargement of extraocular muscles of orbits. Retrobulbar intra or extraconal mass is not seen. Preseptal or post septal orbital abnormality is not detected. Cavernous sinuses appear normal. Incidental empty sella and jaimie cisterna magna, both unchanged. Paranasal sinuses are normal. Post contrast images demonstrate no evidence of pathologic enhancement in the orbit or intracranial cavity. IMPRESSION: 1. Mild cerebral atrophy. No acute intracranial abnormality seen. 2. No specific abnormality identified of the orbits. No suspicious enhancing/compressive lesion ident ified. 3. A couple incidental findings which were present back on 06/03/2013 include a 1.1 cm right frontopar ietal meningioma, empty sella, and megacisterna magna.
== END | disposition home or self-care (01) ==
LOC: RADMRIMAIN 06:20
PROVIDERS: ATTEND Ophthalmology
DX: G31.9 Degenerative disease of nervous system, unspecified (principal); D32.0 Benign neoplasm of cerebral meninges
CPT/HCPCS: 70543; 70553; A9585

== ENCOUNTER → 2018-06-01 | Outpatient (CLI) | payer MEDICARE ==
--- NOTE | 2018-06-02 11:58 | US ---
EXAMINATION TYPE: US kidneys/renal and bladder DATE OF EXAM: 06/01/2018 COMPARISON: NONE CLINICAL HISTORY: N39.0 Urinary tract infection, site not specified. UTI, hematuria EXAM MEASUREMENTS: Right Kidney: 9.1 x 5.1 x 4.4 cm Left Kidney: 9.2 x 5.1 x 4.7 cm Difficult and limited study due to overlying bowel gas Right Kidney: visualized portions wnl Left Kidney: visualized portions wnl Bladder: not fully distended Bilateral Jets seen: no There is no evidence for hydronephrosis at this point in time. No nephrolithiasis is seen. No ora s are identified. The urinary bladder is anechoic. Bilateral ureteral jets are seen. IMPRESSION: No distinct abnormality appreciated.
== END | disposition home or self-care (01) ==
LOC: RADUSMAIN 17:52
PROVIDERS: ATTEND Internal Medicine Geriatric Medicine
DX: N39.0 Urinary tract infection, site not specified (principal)
CPT/HCPCS: 76770

== ENCOUNTER → 2018-11-27 | Outpatient (CLI) | payer MEDICARE | END | disposition home or self-care (01) | LOC: LABWHC1 13:01 | PROVIDERS: ATTEND Dermatology Procedural Dermatology | DX: C44.511 Basal cell carcinoma of skin of breast (principal); L23.9 Allergic contact dermatitis, unspecified cause | CPT/HCPCS: 36415; 82085; 86038 ==

== ENCOUNTER → 2019-03-30 | Outpatient (CLI) | payer MEDICARE ==
--- NOTE | 2019-03-31 11:51 | CT ---
EXAMINATION TYPE: CT chest wo con DATE OF EXAM: 03/30/2019 COMPARISON: 03/26/2019 chest x-ray and CT dated 02/23/2016. HISTORY: Lobar pneumonia x [address] DLP: 553.20 mGycm. Automated Exposure Control for Dose Reduction was Utilized. TECHNIQUE: CT scan of the thorax is performed without IV contrast. Noncontiguous slices limiting luke luation for pulmonary nodule. FINDINGS: LUNGS: There is a masslike consolidation at the right lung base containing air bronchograms. Bibasila r bronchiectasis is seen with right lower lobe peribronchial cuffing. Linear atelectasis radiates ant eriorly towards the inferior pleural surface and interlobar fissure from the right lower lobe consoli dation. Multifocal left-sided pleural parenchymal scarring is linear and does not significantly impro ochoa on supine first prone imaging. Nodular biapical pleural parenchymal scarring is seen, right greater than left. Mild background emphy sematous changes of the lungs in a centrilobular distribution. No interlobular septal thickening. No honeycombing or fibrosis. MEDIASTINUM: Lack of IV contrast is noted to limit evaluation for mediastinal and especially hilar ad enopathy. Punctate calcification is seen along the left mediastinal border on series 3 image 20 that could be sequela prior pericarditis. There are no definitive greater than 1 cm hilar or mediastinal l ymph nodes. No cardiomegaly or pericardial effusion is seen. OTHER: There is a very small hiatal hernia. Nonspecific 1.2 cm hypoattenuated hepatic lesion is seen in segment 8 of the liver. This is incompletely evaluated without contrast. Mild multilevel degenerat ramsey change of the spine. IMPRESSION: Posterior basilar segment right lower lobe consolidation. Given the secondary findings of air bronchograms and right lower lobe peribronchial cuffing per lobar pneumonia is a primary conside ration. Short-term follow-up CT thorax and 3 months could assess for resolution, alternatively if the re is higher clinical suspicion bronchoscopy or PET/CT should be performed.
== END | disposition home or self-care (01) ==
LOC: RADCTMAIN 14:31
PROVIDERS: ATTEND Internal Medicine
DX: J18.1 Lobar pneumonia, unspecified organism (principal); Z88.6 Allergy status to analgesic agent
CPT/HCPCS: 71250

== ENCOUNTER → 2019-11-08 | Outpatient (CLI) | payer MEDICARE ==
--- NOTE | 2019-11-08 10:25 | XR ---
EXAMINATION TYPE: XR cervical spine comp DATE OF EXAM: 11/08/2019 COMPARISON: NONE HISTORY: Pain TECHNIQUE: Four views are submitted. FINDINGS: The odontoid is intact. There are no compression deformities. The prevertebral soft tissue structur es are within normal limits. Severe multilevel degenerative disc disease with posterior spondylosis and facet arthropathy. Multilevel foraminal encroachment IMPRESSION: 1. Multilevel severe degenerative disc disease, facet arthropathy and foraminal encroachment..
== END | disposition home or self-care (01) ==
LOC: RADXRMAIN 09:57
PROVIDERS: ATTEND Nurse Practitioner Gerontology
DX: M50.30 Other cervical disc degeneration, unspecified cervical region (principal); M47.812 Spondylosis without myelopathy or radiculopathy, cervical region
CPT/HCPCS: 72050

== ENCOUNTER → 2019-11-12 | Outpatient (CLI) | payer MEDICARE ==
--- NOTE | 2019-11-13 13:39 | MM ---
Reason for exam: screening (asymptomatic). History: Patient is postmenopausal, history of other cancer, and is nulliparous. Physical Findings: A clinical breast exam by your physician is recommended on an annual basis and results should be correlated with mammographic findings. MG 3D Screening Mammo W/Cad Bilateral CC and MLO view(s) were taken. The breast tissue is heterogeneously dense. This may lower the sensitivity of mammography. Scar marker left breast. ASSESSMENT: Benign, BI-RAD 2 RECOMMENDATION: Routine screening mammogram of both breasts in 1 year.
== END | disposition home or self-care (01) ==
LOC: RADMAMWWP 15:00
PROVIDERS: ATTEND Internal Medicine Geriatric Medicine
DX: Z12.31 Encounter for screening mammogram for malignant neoplasm of breast (principal)
CPT/HCPCS: 77063; 77067

== ENCOUNTER 2020-04-09 11:46 | Emergency (ER) | payer MEDICARE ==
[2020-04-09 11:54] VITALS: BP 118/76; PULSE 95; RESP 18; TEMP 97.6
--- NOTE | 2020-04-09 12:34 | ED ---
ENT HPI - General Source: patient Mode of arrival: ambulatory Limitations: no limitations <Danika Carney - Last Filed: 04/13/20 19:57> <Pinky Lanza - Last Filed: 04/15/20 00:06> - General Chief complaint: ENT Stated complaint: Sore throat, Runny nose Time Seen by Provider: 04/09/20 11:59 - History of Present Illness Initial comments: 74-year-old female presenting today for chief complaint of nasal congestion sore throat. Patient states she had some mild nasal congestion or sore throat that began today. 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 She denies a cough chest pain shortness of breath body aches or fevers. Patient denies any generalized weakness or additional complaints. Patient denies a difficulty swallowing or tolerating oral secretions. Patient has no additional complaints upon arrival patient appears nontoxic no acute distress she is afebrile (Danika Carney) - Related Data Home Medications Medication Instructions Recorded Confirmed Albuterol Nebulized [Ventolin 2.5 mg INHALATION RT-Q6H PRN 09/02/15 03/31/16 Nebulized] Ascorbic Acid [Vitamin C] 500 mg PO DAILY 09/02/15 03/31/16 Loratadine [Claritin] 10 mg PO HS 09/02/15 03/31/16 Niacin 250 mg PO DAILY 09/02/15 03/31/16 Pilocarpine [Salagen] 5 mg PO BID 09/02/15 03/31/16 Simvastatin 20 mg PO HS 09/02/15 03/31/16 Travoprost [Travatan Z 0.004%] 1 drop BOTH EYES HS 09/02/15 03/31/16 Vitamin B Complex 1 tab PO DAILY 09/02/15 03/31/16 clonazePAM [Clonazepam] 0.5 mg PO HS 09/02/15 03/31/16 Calcium Carbonate/Vitamin D3 2 each PO HS 03/29/16 03/31/16 [Calcium 600-Vit D3 400 Caplet] L.acidoph,Paracasei, B.lactis 1 each PO DAILY 03/29/16 03/31/16 [Probiotic] Visionsheild Supplement 1 tab PO DAILY 03/29/16 03/31/16 Previous Rx's Medication Instructions Recorded HYDROcodone/APAP 7.5-325MG [Port Tobacco 1 tab PO Q6HR PRN #28 tab 03/31/16 7.5-325] Allergies Allergy/AdvReac Type Severity Reaction Status Date / Time aspirin Allergy Rash/Hives Verified 04/09/20 11:54 Review of Systems ROS Other: All systems not noted in ROS Statement are negative. <Danika Carney - Last Filed: 04/13/20 19:57> ROS Other: All systems not noted in ROS Statement are negative. <Pinky Lanza - Last Filed: 04/15/20 00:06> ROS Statement: Those systems with pertinent positive or pertinent negative responses have been documented in the HPI. Past Medical History Past Medical History: Asthma, Cancer, GERD/Reflux, Hyperlipidemia, Pneumonia Additional Past Medical History / Comment(s): removed skin cancer, bells palsy 2 yrs ago,prednisone Feb 2016. History of Any Multi-Drug Resistant Organisms: None Reported Past Surgical History: Hysterectomy Additional Past Surgical History / Comment(s): jennifer eye cataract, right knee arthroscopy, Mika fundoplication Past Anesthesia/Blood Transfusion Reactions: Motion Sickness Past Psychological History: No Psychological Hx Reported Smoking Status: Former smoker Past Alcohol Use History: None Reported Past Drug Use History: None Reported - Past Family History Mother Family Medical History: CVA/TIA, Myocardial Infarction ([place]) Additional Family Medical History / Comment(s): Mother at 73 from either massive myocardial infarction or CVA. Father Additional Family Medical History / Comment(s): Father at age 64 from emphysema. Brother(s) Additional Family Medical History / Comment(s): Patient has 4 brothers and one has diabetes,one brother committed suicide Sister(s) Additional Family Medical History / Comment(s): She has 2 sisters and one has paranoid schizophrenia. <Danika Carney - Last Filed: 04/13/20 19:57> General Exam Limitations: no limitations <Danika Carney - Last Filed: 04/13/20 19:57> - General Exam Comments Initial Comments: General: The patient is awake and alert, in no distress Eye: Pupils are equal, round and reactive to light, extra-ocular movements are intact. No nystagmus. There is normal conjunctiva bilaterally. No signs of icterus. Ears, nose, mouth and throat: There are moist mucous membranes and no oral lesions. No tonsillar exudates, a left-sided tonsillar stone. Uvula midline mild erythema. Clear nasal congestion, no sinus pressure to palpation of the ma xillary, frontal, ethmoid. Neck: The neck is supple, there is no tenderness or JVD. Cardiovascular: There is a regular rate and rhythm. No murmur, rub or gallop is appreciated. Respiratory: Lungs are clear to auscultation, respirations are non-labored, breath sounds are equal. No wheezes, stridor, rales, or rhonchi. Gastrointestinal: Soft, non-distended, non-tender abdomen without masses or organomegaly noted. There is no rebound or guarding present Musculoskeletal: Normal ROM, no tenderness. Strength 5/5. Sensation intact. Pulses equal bilaterally 2+. Neurological: A&O x 3. CN II-XII intact grossly, There are no obvious motor or sensory deficits. Coordination appears grossly intact. Speech is normal. Skin: Skin is warm and dry and no rashes or lesions are noted. Psychiatric: Cooperative, appropriate mood & affect, normal judgment. (Danika Carney) Course Vital Signs 04/09/20 11:49 Temperature 97.6 F Pulse Rate 95 Respiratory 18 Rate Blood Pressure 118/76 O2 Sat by Pulse 94 L Oximetry Medical Decision Making <Danika Carney - Last Filed: 04/13/20 19:57> <Pinky Lanza - Last Filed: 04/15/20 00:06> - Medical Decision Making Strep (-). Covid (-). No evidence of thrust. Patient appears well nontoxic. lungs clear. no additional complaints. pt will be [facility] pcp f/u. patient agreeable to this care plan as well as discharge at this time. (Danika Carney) I was available for consultation in the emergency department. The history and physical exam were done by the midlevel provider. I was consulted for this patients care. I reviewed the case with the midlevel provider and based on their presentation of the patient, I agree with the assessment, medical decision making and plan of care as documented. Chart was dictated using [employer] dictation software. Attempts were made to correct any dictation errors however some typographical errors may persist. Patient was seen during a national state of emergency due to the Covid-19 pandemic. (Pinky Lanza) - Lab Data Lab Results 04/09/20 04/09/20 Range/Units 12:06 12:06 Coronavirus (PCR) Not Detected (Not Detectd) Group A Strep Rapid Negative (Negative) Disposition Is patient prescribed a controlled substance at d/c from ED?: No Time of Disposition: 12:34 <Danika Carney - Last Filed: 04/13/20 19:57> <Pinky Lanza - Last Filed: 04/15/20 00:06> Clinical Impression: Sore throat, Nasal congestion Disposition: HOME SELF-CARE Condition: Good Instructions (If sedation given, give patient instructions): Upper Respiratory Infection (ED) Additional Instructions: Please use medication as discussed. Please follow-up with family doctor in the next 2 days. Please return to emergency room if the symptoms increase or worsen or for any other concerns. Referrals: Teodoro Arrington MD [Primary Care Provider] - 1-2 days
== END 2020-04-09 13:04 | disposition home or self-care (01) ==
LOC: EC 11:46
DX: J02.9 Acute pharyngitis, unspecified (principal); J45.909 Unspecified asthma, uncomplicated; K21.9 Gastro-esophageal reflux disease without esophagitis; E78.5 Hyperlipidemia, unspecified; G51.0 Bell's palsy; Z79.899 Other long term (current) drug therapy; Z79.51 Long term (current) use of inhaled steroids; Z20.822 Contact with and (suspected) exposure to COVID-19; Z87.891 Personal history of nicotine dependence; Z88.6 Allergy status to analgesic agent; Z85.828 Personal history of other malignant neoplasm of skin
CPT/HCPCS: 87081; 87430; 87635; 99283

== ENCOUNTER 2020-07-29 08:38 | Day surgery (SDC) | payer MEDICARE ==
[2020-07-24 15:28] VITALS: BMI 22.4
[~2020-07-29 08:38] MED LIST changes: -DEXAMETHASONE SOD PHOSPHATE 10 MG/ML 1 ML VIAL IV ONE; +LIDOCAINE 1% (10MG/ML) FOR IV START INTRADERMA PRN; -LIDOCAINE 1% 20 ML VIAL (10MG/ML) FOR IV START INTRADERMA PRN; -MIDAZOLAM 2 MG/2 ML VIAL IV PRN; +MOXIFLOXACIN HCL 0.5% DROPS 3 ML BTL OP PRN; -ONDANSETRON 4 MG/2 ML VIAL IVP ONE; -SCOPOLAMINE 1.5MG/72HR PATCH TRANSDERM ONE; +TETRACAINE 0.5% OPHTH (PF) DROPS 4 ML BTL OP PRN; +TIMOLOL 0.5% OPHTH DROPS 5 ML BTL OP PRN; +TOBRA-DEXAMET 0.3-0.1% OPHTH DROPS 2.5 ML BTL OPHTHALMIC PRN
[2020-07-29 09:11] VITALS: TEMP 97.8
[2020-07-29] MEDS: PILOCARPINE 2% OPHTH DROPS 15 ML BTL OP PRN ×2 (09:20→10:24)
[2020-07-29] MEDS ORDERED: fentaNYL (PF) 50 MCG/ML 2 ML AMP ONE (10:08)
[2020-07-29] MEDS ORDERED: TRYPAN BLUE 0.06% SYRINGE 0.5 ML SYRINGE INTRAOCULA ONE (10:26)
[2020-07-29] MEDS ORDERED: EPINEPHrine (PF) 0.3 ML in BALANCED SALT IRRIG SOLN COMB2 500 ML IRRIGATION ONE (10:28)
--- NOTE | 2020-07-29 10:35 | P.OP ---
Date of Procedure: 07/29/20 Preoperative Diagnosis: POAG severe Postoperative Diagnosis: same Procedure(s) Performed: goniotomy OD Implants: none Anesthesia: MAC Surgeon: Everette De Dios Pathology: none sent Condition: stable Disposition: same day Indications for Procedure: poor glaucoma control Operative Findings: no complications
[2020-07-29 10:55] VITALS: BP 146/85; PULSE 72; RESP 18
--- NOTE | 2020-07-30 07:05 | OP ---
OPERATIVE REPORT DATE OF SERVICE: 07/29/2020 PROCEDURE: Goniotomy of the right eye. PREOPERATIVE DIAGNOSIS: Primary open-angle glaucoma, severe stage. POSTOPERATIVE DIAGNOSIS: Primary open-angle glaucoma, severe stage. SURGEON: Dr. Everette De Dios. ANESTHESIA: Topical. ESTIMATED BLOOD LOSS: Is less than 5 cc. SPECIMEN: None. NARRATIVE: After obtaining the appropriate consent, the patient was brought to the operating room. There she was placed under cardiac monitoring, prepped and draped in the usual sterile manner. She was approached from her right temporal side and at the 9 o'clock position, a 2.5 mm keratome was used to create a self-sealing corneal flap incision. 1% xylocaine MPF 50:50 mix with balanced salt solution was then injected into the anterior chamber. This was followed by Trypan Blue which was left in place for 1 minute. This was then irrigated away with balanced salt solution. The anterior chamber was then stabilized with Viscoat. The patient was then asked to rotate her head approximately 45 degrees toward her left maintaining a gaze in that general direction and a gonioprism was placed on the patient's eye. The trabecular meshwork was then identified and using a [employer] dual blade goniotomy knife, a mike and meet method was used to remove the trabecular meshwork for approximately 5 o'clock hours on the nasal side of the patient's eye. A moderate amount of heme was encountered as normally expected with this procedure. The patient was then asked to rotate back to the normal supine position and the remaining viscoelastic as well as the majority of the accumulated blood in the front chamber was irrigated away under irrigation aspiration. The eye was then brought to slightly above normal intraocular pressure through the temporal incision with balanced salt solution. The eye was confirmed watertight with minimal bleeding identified from the goniotomy site. She then received 2 drops of 2% pilocarpine, 2 drops of moxifloxacin and 2 drops of 0.5% timolol. She was lightly patched and shielded in the usual manner. She was also asked to remained at approximately a 45 degree or more upright position following the procedure. She was then returned to outpatient recovery in good condition. MMODL / IJN: [id number] /
== END 2020-07-29 11:20 | disposition home or self-care (01) ==
LOC: OR 08:38
PROVIDERS: ATTEND Ophthalmology
DX: H40.1133 Primary open-angle glaucoma, bilateral, severe stage (principal); H47.393 Other disorders of optic disc, bilateral; H52.13 Myopia, bilateral; H52.223 Regular astigmatism, bilateral; H52.4 Presbyopia; Z96.1 Presence of intraocular lens; E78.5 Hyperlipidemia, unspecified; K21.9 Gastro-esophageal reflux disease without esophagitis; M35.00 Sjogren syndrome, unspecified; F32.9 Major depressive disorder, single episode, unspecified; J45.909 Unspecified asthma, uncomplicated; Z87.891 Personal history of nicotine dependence; Z90.710 Acquired absence of both cervix and uterus; G25.81 Restless legs syndrome; Z86.69 Personal history of other diseases of the nervous system and sense organs; Z83.3 Family history of diabetes mellitus; Z82.49 Family history of ischemic heart disease and other diseases of the circulatory system; Z79.51 Long term (current) use of inhaled steroids; Z79.899 Other long term (current) drug therapy; Z88.6 Allergy status to analgesic agent
CPT/HCPCS: 65820; J0171; J3010

== ENCOUNTER → 2020-08-24 | Outpatient (CLI) | payer MEDICARE ==
--- NOTE | 2020-08-24 16:07 | XR ---
EXAMINATION TYPE: XR chest 2V DATE OF EXAM: 08/24/2020 COMPARISON: 04/01/2016 HISTORY: 75-year-old female R07.9 TECHNIQUE: Frontal and lateral views FINDINGS: Heart normal size. Mild elongation/tortuosity of the thoracic aorta with mild arch calcifications. Mi ld right apical pleural-parenchymal scarring. Mild patchy density at the right base. Otherwise, no co nsolidation or pleural effusion. Possible nodularity in the periphery of the right upper lobe. No ple ural effusion. IMPRESSION: 1. Questionable nodularity versus summation artifact in the periphery of the right upper lobe. CT of the chest can exclude an underlying pulmonary nodule. 2. Mild patchy density at the right base, atelectasis versus early infiltrate. Correlate with patient 's symptoms.
== END | disposition home or self-care (01) ==
LOC: RADXRMAIN 15:01
PROVIDERS: ATTEND Nurse Practitioner Gerontology
DX: R91.8 Other nonspecific abnormal finding of lung field (principal)
CPT/HCPCS: 71046

== ENCOUNTER 2020-09-09 09:02 | Day surgery (SDC) | payer MEDICARE ==
[2020-09-08 09:08] VITALS: BMI 22.1
[~2020-09-09 09:02] MED LIST changes: -MOXIFLOXACIN HCL 0.5% DROPS 3 ML BTL OP PRN; +ONDANSETRON 4 MG/2 ML VIAL IVP ONE; -TIMOLOL 0.5% OPHTH DROPS 5 ML BTL OP PRN; -TOBRA-DEXAMET 0.3-0.1% OPHTH DROPS 2.5 ML BTL OPHTHALMIC PRN
[2020-09-09] MEDS: PILOCARPINE 2% OPHTH DROPS 15 ML BTL OP PRN ×3 (09:50→10:58)
[2020-09-09 10:08] VITALS: RESP 16; TEMP 98
[2020-09-09] MEDS ORDERED: MIDAZOLAM 2 MG/2 ML VIAL ONE (10:30)
[2020-09-09] MEDS ORDERED: TRYPAN BLUE 0.06% SYRINGE 0.5 ML SYRINGE INTRAOCULA ONE (10:44)
[2020-09-09] MEDS: TIMOLOL 0.5% OPHTH DROPS 5 ML BTL OP PRN ×2 (10:44→10:58)
[2020-09-09] MEDS: MOXIFLOXACIN HCL 0.5% DROPS 3 ML BTL OP PRN ×2 (10:44→10:58)
[2020-09-09] MEDS ORDERED: EPINEPHrine (PF) 0.3 ML in BALANCED SALT IRRIG SOLN COMB2 500 ML IRRIGATION ONE (10:45)
--- NOTE | 2020-09-09 11:00 | P.OP ---
Date of Procedure: 09/09/20 Preoperative Diagnosis: POAG moderate Postoperative Diagnosis: same Procedure(s) Performed: goniotomy, OS Implants: none Anesthesia: MAC Surgeon: Everette De Dios Pathology: none sent Condition: stable Disposition: same day Indications for Procedure: poor glaucoma control Operative Findings: no complications
[2020-09-09 11:28] VITALS: BP 126/76; PULSE 70
--- NOTE | 2020-09-10 06:40 | OP ---
OPERATIVE REPORT DATE OF SERVICE: September 09, 2020. PROCEDURE PERFORMED: Goniotomy of the left eye. PREOPERATIVE DIAGNOSIS: Primary open-angle glaucoma, moderate stage. POSTOPERATIVE DIAGNOSIS: Primary open angle glaucoma, moderate stage. SURGEON: Dr. Everette De Dios. ANESTHESIA: Topical. ESTIMATED BLOOD LOSS: Less than 5 mL. SPECIMEN: Taken none. NARRATIVE: After obtaining the appropriate consent, the patient was brought to the operating room. There, she was placed under cardiac monitoring, prepped and draped in the usual sterile manner. She was approached from her left temporal side and at the 3 o'clock position, a 2.5 mm keratome was used to create a self-sealing corneal flap incision. Through this opening 1% Xylocaine MPF 50:50 mix with balanced salt solution was injected into the anterior chamber. This was followed by Trypan blue which was allowed to stain the eye for about 1 minute. This was irrigated away and the anterior chamber was then stabilized with Viscoat. The patient was then rotated approximately 45 degrees to her right. While maintaining gaze in the general direction, a gonioprism was placed on the patient's eye and using a [employer] dual blade device, a mike and meet method of removing trabecular meshwork for approximately 5 hours along the nasal side of the patient's eye. [id number]-hu-mhajecor bleeding returned as expected and this was irrigated away while removing the remaining viscoelastic from the anterior chamber. The eye was then brought to slightly above normal intra-ocular pressure at the end of the case with minimal blood noted in the anterior chamber. She then received 1 drop of 2% pilocarpine, 1 drop of 0.5% timolol and 1 drop of 0.5% moxifloxacin. She was then lightly patched and shielded in the usual manner. There were no complications from the procedure. She tolerated the procedure well and was returned to outpatient recovery in good condition. MMODL / IJN: [id number] /
== END 2020-09-09 12:02 | disposition home or self-care (01) ==
LOC: OR 09:02
PROVIDERS: ATTEND Ophthalmology
DX: H40.1122 Primary open-angle glaucoma, left eye, moderate stage (principal); H47.393 Other disorders of optic disc, bilateral; H52.13 Myopia, bilateral; H52.223 Regular astigmatism, bilateral; H52.4 Presbyopia; H04.129 Dry eye syndrome of unspecified lacrimal gland; K21.9 Gastro-esophageal reflux disease without esophagitis; E78.5 Hyperlipidemia, unspecified; F32.9 Major depressive disorder, single episode, unspecified; M35.00 Sjogren syndrome, unspecified; J45.909 Unspecified asthma, uncomplicated; Z98.41 Cataract extraction status, right eye; Z98.42 Cataract extraction status, left eye; Z96.1 Presence of intraocular lens; Z90.710 Acquired absence of both cervix and uterus; Z98.890 Other specified postprocedural states; Z87.891 Personal history of nicotine dependence; G25.81 Restless legs syndrome; Z79.51 Long term (current) use of inhaled steroids; Z79.899 Other long term (current) drug therapy; Z88.6 Allergy status to analgesic agent
CPT/HCPCS: 65820; J2250; J2405; J0171

== ENCOUNTER → 2021-05-20 | Outpatient (CLI) | payer MEDICARE ==
--- NOTE | 2021-05-20 16:08 | XR ---
EXAMINATION TYPE: XR lumbar spine 2 or 3V DATE OF EXAM: 05/20/2021 COMPARISON: 11/09/2010 HISTORY: Restless leg syndrome, anal incontinence TECHNIQUE: 3 view lumbar spine FINDINGS: Scoliosis is present. There are 5 lumbar-type vertebral bodies. Pedicles are intact. Mild d iffuse disc space narrowing is present in the mid lumbar spine. Vertebral body heights are preserved. IMPRESSION: 1. Scoliosis. 2. Consider MRI of the lumbar spine for additional evaluation.
== END | disposition home or self-care (01) ==
LOC: RADXRMAIN 15:25
PROVIDERS: ATTEND Internal Medicine Geriatric Medicine
DX: M41.86 Other forms of scoliosis, lumbar region (principal); R15.9 Full incontinence of feces
CPT/HCPCS: 72100

== ENCOUNTER → 2021-05-25 | Outpatient (CLI) | payer MEDICARE ==
--- NOTE | 2021-05-25 19:23 | BD ---
EXAMINATION TYPE: Axial Bone Density DATE OF EXAM: 05/25/2021 COMPARISON: NONE CLINICAL HISTORY: osteoporosis Height: 5'3 /2 Weight: 133 FRAX RISK QUESTIONS: History of Fracture in Adulthood: y Secondary Osteoporosis: RISK FACTORS HISTORY OF: Postmenopausal woman: y MEDICATIONS: Additional Medications: restless legs, gerd, depression, dry mouth, anal incontinence cholesterol Additional History: EXAM MEASUREMENTS: Bone mineral densitometry was performed using the [employer] System. Bone mineral density as measured about the Lumbar spine is: ----- L1-L4(G/cm2): 1.087 T Score Values are as follows: ----- L2: 0.2 ----- L3:-0.8 ----- L4: -1.7 ----- L1-L4: -0.8 Bone mineral density about the R hip (g/cm2): 0.740 Bone mineral density about the L hip (g/cm2): 0.824 T Score values are as follows: -----R Neck: -2.1 -----L Neck: -1.5 -----R Total: -1.4 -----L Total: -2.2 IMPRESSION: Osteopenia (T Score between -2.5 and -1). There is slightly increased risk of fracture and the patient may be considered for treatment. Re-Screen 2-5 years. NOTE: T-SCORE=SD OF THE YOUNG ADULT MEAN.
--- NOTE | 2021-05-27 11:14 | MM ---
Reason for exam: screening (asymptomatic). Last mammogram was performed 1 year and 6 months ago. History: Patient is postmenopausal, history of other cancer, and is nulliparous. Family history of breast cancer in sister. Physical Findings: A clinical breast exam by your physician is recommended on an annual basis and results should be correlated with mammographic findings. MG 3D Screening Mammo W/Cad Bilateral CC and MLO view(s) were taken. XCCL view(s) were taken of the right breast. Prior study comparison: November 12, 2019, bilateral MG 3d screening mammo w/cad. There are scattered fibroglandular densities. No significant changes when compared with prior studies. ASSESSMENT: Negative, BI-RAD 1 RECOMMENDATION: Routine screening mammogram of both breasts in 1 year.
== END | disposition home or self-care (01) ==
LOC: RADMAMWWP 09:32
PROVIDERS: ATTEND Internal Medicine Geriatric Medicine
DX: Z12.31 Encounter for screening mammogram for malignant neoplasm of breast (principal); M85.89 Other specified disorders of bone density and structure, multiple sites; Z78.0 Asymptomatic menopausal state; Z80.3 Family history of malignant neoplasm of breast
CPT/HCPCS: 77063; 77067; 77080

== ENCOUNTER 2021-12-07 12:16 | Emergency (ER) | payer MEDICARE ==
[2021-12-07 12:25] VITALS: TEMP 97.7
--- NOTE | 2021-12-07 12:53 | ED ---
General Adult HPI - General Chief complaint: Head Injury Stated complaint: facial injury, sent for CT Time Seen by Provider: 12/07/21 12:28 Source: patient Mode of arrival: ambulatory Limitations: no limitations - History of Present Illness Initial comments: Dictation was produced using [employer] dictation software. please excuse any grammatical, word or spelling errors. Chief Complaint: 76-year-old female presents to emergency department after facial contusion History of Present Illness: 76-year-old female 3 days ago she opened the car door rather vigorously when part of the car door struck her in her left anterior face. Patient states that she herself really hard. No loss of consciousness. Patient does not take anticoagulation medications. She did not decide to seek medical attention today because today she's been having some symptoms of tickling sensation to her left forehead and left cheek area. She thought to herself "may be I should go get a computed tomography scan." Patient denies any dizziness. Denies any bleeding. The ROS documented in this emergency department record has been reviewed and confirmed by me. Those systems with pertinent positive or negative responses have been documented in the HPI. All other systems are other negative and/or noncontributory. PHYSICAL EXAM: General Impression: Alert and oriented x3, not in acute distress HEENT: Small bruise to the left lower lip, extra-ocular movements intact, pupils equal and reactive to light bilaterally, mucous membranes moist. Cardiovascular: Heart regular rate and rhythm Chest: Able to complete full sentences, no retractions, no tachypnea Abdomen: abdomen soft, non-tender, non-distended, no organomegaly Musculoskeletal: Pulses present and equal in all extremities, no peripheral edema Motor: no focal deficits noted Neurological: CN II-XII grossly intact, no focal motor or sensory deficits noted Skin: Intact with no visualized rashes Psych: Normal affect and mood ED course: 76-year-old female presents to emergency department after facial contusion 3 days ago. Vital signs upon arrival are within acceptable limits. Computed tomography scan the brain and face shows no acute processes. Patient observed in emergency department for one hour and 20 minutes. Reevaluated bedside at 140. Patient in stable medical condition. Patient be discharged. - Related Data Home Medications Medication Instructions Recorded Confirmed Niacin 500 mg PO QAM 09/02/15 09/09/20 Pilocarpine [Salagen] 5 mg PO HS 09/02/15 09/09/20 Simvastatin 20 mg PO HS 09/02/15 09/09/20 Vitamin B Complex 1 tab PO QA 09/02/15 09/09/20 clonazePAM [Clonazepam] 0.5 mg PO HS 09/02/15 09/09/20 Allergy Relief Pill 1 tab PO QA 07/24/20 09/09/20 Ferrous Sulfate [Iron] 325 mg PO QA 07/24/20 09/09/20 Fluticasone/Vilanterol [Breo 1 inhalation PO HS 07/24/20 09/09/20 Ellipta 100-25 Mcg Inhaler] Magnesium 400 mg PO [facility] 07/24/20 09/09/20 Melatonin [Melatonin Dissolving 10 mg PO 07/24/20 09/09/20 Tablet] Montelukast [Singulair] 10 mg PO HS 07/24/20 09/09/20 Pantoprazole [Protonix] 40 mg PO HS 07/24/20 09/09/20 Venlafaxine HCl 75 mg PO 07/24/20 09/09/20 lysine HCL [l-Lysine] 1,000 mg PO [facility] 07/24/20 09/09/20 Allergies Allergy/AdvReac Type Severity Reaction Status Date / Time aspirin AdvReac Rash/Hives Verified 12/07/21 12:25 Review of Systems ROS Statement: Those systems with pertinent positive or pertinent negative responses have been documented in the HPI. ROS Other: All systems not noted in ROS Statement are negative. Past Medical History Past Medical History: Asthma, Cancer, GERD/Reflux, Hyperlipidemia, Pneumonia Additional Past Medical History / Comment(s): Hx skin cancer, hx Chester Palsy, "mild varicose veins." Shoghren's - dry mouth and eyes. History of Any Multi-Drug Resistant Organisms: None Reported Past Surgical History: Hysterectomy, Orthopedic Surgery Additional Past Surgical History / Comment(s): Bilateral cataracts removed, right knee arthroscopy, Mika fundoplication. goniotomy rt eye Past Anesthesia/Blood Transfusion Reactions: Motion Sickness Past Psychological History: Depression Smoking Status: Former smoker Past Alcohol Use History: None Reported Past Drug Use History: None Reported - Past Family History Sister(s) Family Medical History: Cancer Additional Family Medical History / Comment(s): Breast cancer. General Exam Limitations: no limitations Course Vital Signs 12/07/21 12:22 Temperature 97.7 F Pulse Rate 68 Respiratory 20 Rate Blood Pressure 144/74 O2 Sat by Pulse 98 Oximetry Disposition Clinical Impression: Facial contusion Disposition: HOME SELF-CARE Condition: Good Instructions (If sedation given, give patient instructions): Facial Contusion (ED) Is patient prescribed a controlled substance at d/c from ED?: No Referrals: Teodoro Arrington MD [Primary Care Provider] - 1-2 days Time of Disposition: 13:38
--- NOTE | 2021-12-07 13:34 | CT ---
EXAMINATION TYPE: CT brain wo con, CT facial bones wo con CT DLP: combined DLP 1290.4 mGycm, Automated exposure control for dose reduction was used. DATE OF EXAM: 12/07/2021 1:18 PM COMPARISON: CT facial bones 07/05/2013, MRI brain 06/03/2013. CLINICAL INDICATION:Female, 76 years old with history of facial contusion 3 days ago, Hit face with c ar door, left sided numbness. TECHNIQUE: Brain: Multiple axial CT images of the brain were obtained without IV contrast. Coronal and sagittal reformats reviewed. Additional axial CT of the facial bones with coronal and sagittal reformats. FINDINGS: Dental amalgam creates streak artifact which limits evaluation. Brain: Extra-axial spaces: No abnormal extra-axial fluid collections. Stable hyperattenuating 0.9 cm lesion along the right parietal convexity from prior MRI consistent with a meningioma. Ventricular system: Dilatation in proportion to cerebral atrophy. Cerebral parenchyma: No acute intraparenchymal hemorrhage or mass effect. The jones-white junction is well differentiated. Scattered hypoattenuating areas are seen within the white matter. Cerebral vol ume loss. Cerebellum: Unremarkable. Mass effect: No evidence of midline shift. Intracranial vasculature: Atherosclerotic calcifications of the intracranial vessels. Soft tissues: Normal. Calvarium/osseous structures: No depressed skull fracture. Paranasal sinuses and mastoid air cells: Clear Visualized orbits: Bilateral aphakia Facial bones: There is no evidence of fracture, subluxation, dislocation, or significant soft tissue swelling. Nasa l septal deviation to the right. The orbital contents are intact. The temporal-mandibular joints appe ar symmetric. The visualized portion of the paranasal sinuses appear clear. IMPRESSION: 1. No acute intracranial process. 2. No acute facial bone fracture.
[2021-12-07 13:53] VITALS: BP 138/78; PULSE 66; RESP 18
== END 2021-12-07 13:52 | disposition home or self-care (01) ==
LOC: EC 12:16
DX: S00.83XA Contusion of other part of head, initial encounter (principal); J45.909 Unspecified asthma, uncomplicated; K21.9 Gastro-esophageal reflux disease without esophagitis; E78.5 Hyperlipidemia, unspecified; Z87.891 Personal history of nicotine dependence; Z79.899 Other long term (current) drug therapy; Z79.51 Long term (current) use of inhaled steroids; Z88.6 Allergy status to analgesic agent; W23.1XXA Caught, crushed, jammed, or pinched between stationary objects, initial encounter
CPT/HCPCS: 70450; 70486; 99283

== ENCOUNTER → 2022-03-31 | Outpatient (CLI) | payer MEDICARE ==
--- NOTE | 2022-03-31 16:48 | XR ---
EXAMINATION TYPE: XR chest 2V DATE OF EXAM: 03/31/2022 COMPARISON: 08/24/2020 HISTORY: 76-year-old female J4 4.9, COPD TECHNIQUE: Frontal and lateral views FINDINGS: Heart normal size. Mild atherosclerotic arch calcifications. Mild tortuosity of the thoracic aorta. U nchanged pleural parenchymal density at the periphery of the right apex, likely scarring. Pulmonary v asculature within normal limits. No consolidation or pleural effusion. IMPRESSION: Probable chronic pleural parenchymal scarring lateral right apex. No acute process seen.
== END | disposition home or self-care (01) ==
LOC: RADXRMAIN 13:52
PROVIDERS: ATTEND Nurse Practitioner Family
DX: J44.9 Chronic obstructive pulmonary disease, unspecified (principal)
CPT/HCPCS: 71046

== ENCOUNTER → 2022-08-03 | Outpatient (CLI) | payer MEDICARE ==
--- NOTE | 2022-08-04 07:32 | XR ---
EXAMINATION TYPE: XR lumbar spine 2 or 3V DATE OF EXAM: 08/03/2022 Comparison: 05/20/2021 Clinical History: 77-year-old female M25.562 Findings: Degenerated S-shaped scoliosis lumbar spine. 5 lumbar type vertebral bodies. 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 Vertebral body heights are preserved and alignment is maintained. Impression: Degenerated S-shaped scoliosis with a moderate disc/endplate change, advanced hypertrophic facet arth ropathy, and Baastrup's disease. No vertebral compression collapse or malalignment.
== END | disposition home or self-care (01) ==
LOC: RADXRMAIN 17:08
PROVIDERS: ATTEND Internal Medicine Geriatric Medicine
DX: M47.816 Spondylosis without myelopathy or radiculopathy, lumbar region (principal)
CPT/HCPCS: 72100

== ENCOUNTER → 2022-08-09 | Outpatient (CLI) | payer MEDICARE ==
--- NOTE | 2022-08-10 13:03 | MM ---
Reason for Exam: Screening (asymptomatic). Last mammogram was performed 1 year(s) and 2 month(s) ago. Patient History: Menarche at age 15. Patient has no children. Left ovary removed at age 46. Right ovary removed at age 46. Hysterectomy at age 46. Postmenopausal. Sister had breast cancer, age 60. Risk Values: Mireille 5 year model risk: 3.2%. NCI Lifetime model risk: 6.4%. Prior Study Comparison: 11/12/2019 Bilateral Screening Mammogram, [facility]. 05/25/2021 Bilateral Screening Mammogram, [facility]. Tissue Density: The breast tissue is heterogeneously dense. This may lower the sensitivity of mammography. Findings: Analyzed By CAD. There are tiny benign-appearing round calcifications bilaterally redemonstrated. Benign-appearing bilateral axillary lymph nodes are again seen. There is no suspicious new group of microcalcifications or new suspicious mass in either breast. Overall Assessment: Benign, BI-RAD 2 Management: Screening Mammogram of both breasts in 1 year. . Patient should continue monthly self-breast exams. A clinical breast exam by your physician is recommended on an annual basis. This exam should not preclude additional follow-up of suspicious palpable abnormalities. Note on Mireille scores and lifetime risk: 1. A Mireille score greater than 3% is considered moderate risk. If this is the case, consider specialist referral to assess eligibility for a risk reducing agent. 2. If overall lifetime risk for the development of breast cancer is 20% or higher, the patient may qualify for future screening with alternating mammogram and breast MRI. Electronically signed and approved by: Aaron Ochoa M.D.
== END | disposition home or self-care (01) ==
LOC: RADMAMWWP 16:16
PROVIDERS: ATTEND Internal Medicine Geriatric Medicine
DX: Z12.31 Encounter for screening mammogram for malignant neoplasm of breast (principal); Z78.0 Asymptomatic menopausal state; Z80.3 Family history of malignant neoplasm of breast; Z90.721 Acquired absence of ovaries, unilateral
CPT/HCPCS: 77063; 77067

== ENCOUNTER → 2022-09-01 | Outpatient (CLI) | payer MEDICARE ==
--- NOTE | 2022-09-02 08:18 | MR ---
EXAMINATION TYPE: MR lumbar spine wo/w con DATE OF EXAM: 09/01/2022 12:33 PM COMPARISON: NONE HISTORY: Low back pain for 1 year CONTRAST: The patient was injected with 6.5 mL intravenous Gadavist gadolinium contrast. Multiplanar, MultiSpin echo imaging of the lumbar spine was performed. Moderate rotoscoliosis convex to the right. L1-L2: Severe disc desiccation with posterior disc bulge. Degenerative endplate marrow change. Efface ment ventral thecal sac with left lateral recess stenosis and left foraminal encroachment. No evidenc e for page herniation or central stenosis. L2-L3: Moderate disc desiccation with mild posterior disc bulge. Minimal effacement ventral thecal sa c without central stenosis or disc herniation. No evidence for lateral recess stenosis. Facet joint a rthropathy with mild bilateral foraminal encroachment. L3-L4: Moderate disc desiccation with mild posterior disc bulge. Minimal effacement ventral thecal sa c without central stenosis or disc herniation. No evidence for lateral recess stenosis. Facet joint a rthropathy with mild bilateral foraminal encroachment. L4-L5: Severe disc desiccation with degenerative endplate marrow change. Posterior disc bulge with bi lateral neural foraminal encroachment left greater than right. Facet joint arthropathy multilevel jennifer ateral foraminal encroachment. No evidence for central stenosis. L5-S1: Mild disc desiccation with minimal disc bulge. No herniation or central stenosis. Facet joint arthropathy with left foraminal encroachment. S1-S2 Tarlov cysts measuring 1.3 and 1.1 cm respective ly. Additional Tarlov cysts measuring 1.1 cm. Lumbar segments are intact. No paraspinal masses are identified. Conus medullaris has a normal appe arance. A few scattered vertebral body hemangiomas noted. No enhancing mass or pathologic enhancement . IMPRESSION: 1. Multilevel degenerative disc disease with varying degrees of neural foraminal encroachment and lat eral recess stenosis.
== END | disposition home or self-care (01) ==
LOC: RADMRIMAIN 11:34
PROVIDERS: ATTEND Internal Medicine Geriatric Medicine
DX: M51.36 Other intervertebral disc degeneration, lumbar region (principal); M99.73 Connective tissue and disc stenosis of intervertebral foramina of lumbar region
CPT/HCPCS: 72158; A9585

== ENCOUNTER 2022-12-17 14:08 | Observation (INO) | payer MEDICARE ==
--- NOTE | 2022-12-17 14:31 | ED ---
General Adult HPI - General Chief complaint: Neuro Symptoms/Deficit Stated complaint: Dizziness, Neuro Symptoms Time Seen by Provider: 12/17/22 14:15 Source: patient, family, RN notes reviewed Mode of arrival: wheelchair Limitations: no limitations - History of Present Illness Initial comments: Patient is a pleasant 77-year-old female presenting to the emergency department feeling off balance. Onset of symptoms was this morning when she woke. Patient felt fine last night. Patient feels lightheaded. Patient is having some difficulty with walking. Patient has mild fullness of her head and no left temporal region. Patient states it is not fullness. No visual change. No history of similar symptoms previously. No speech problems. No extremity weakness or loss of sensation. - Related Data Home Medications Medication Instructions Recorded Confirmed Niacin 500 mg PO [facility] 09/02/15 09/09/20 Pilocarpine [Salagen] 5 mg PO 09/02/15 09/09/20 Simvastatin 20 mg PO 09/02/15 09/09/20 Vitamin B Complex 1 tab PO [facility] 09/02/15 09/09/20 clonazePAM [Clonazepam] 0.5 mg PO 09/02/15 09/09/20 Allergy Relief Pill 1 tab PO [facility] 07/24/20 09/09/20 Ferrous Sulfate [Iron] 325 mg PO [facility] 07/24/20 09/09/20 Fluticasone/Vilanterol [Breo 1 inhalation PO 07/24/20 09/09/20 Ellipta 100-25 Mcg Inhaler] Magnesium 400 mg PO [facility] 07/24/20 09/09/20 Melatonin [Melatonin Dissolving 10 mg PO 07/24/20 09/09/20 Tablet] Montelukast [Singulair] 10 mg PO 07/24/20 09/09/20 Pantoprazole [Protonix] 40 mg PO 07/24/20 09/09/20 Venlafaxine HCl 75 mg PO 07/24/20 09/09/20 lysine HCL [l-Lysine] 1,000 mg PO [facility] 07/24/20 09/09/20 Allergies Allergy/AdvReac Type Severity Reaction Status Date / Time No Known Allergies Allergy Verified 12/17/22 14:16 Review of Systems ROS Statement: Those systems with pertinent positive or pertinent negative responses have been documented in the HPI. ROS Other: All systems not noted in ROS Statement are negative. Constitutional: Denies: fever Eyes: Denies: eye pain ENT: Denies: ear pain Respiratory: Denies: cough Cardiovascular: Denies: chest pain Endocrine: Denies: fatigue Gastrointestinal: Denies: abdominal pain Genitourinary: Denies: dysuria Neurological: Reports: as per HPI, abnormal gait. Denies: weakness, confusion Past Medical History Past Medical History: Asthma, Cancer, GERD/Reflux, Hyperlipidemia, Pneumonia Additional Past Medical History / Comment(s): Hx skin cancer, hx Vacherie Palsy, "mild varicose veins." Shoghren's - dry mouth and eyes. History of Any Multi-Drug Resistant Organisms: None Reported Past Surgical History: Hysterectomy, Orthopedic Surgery Additional Past Surgical History / Comment(s): Bilateral cataracts removed, right knee arthroscopy, Mika fundoplication. goniotomy rt eye Past Anesthesia/Blood Transfusion Reactions: Motion Sickness Past Psychological History: Depression Smoking Status: Former smoker Past Alcohol Use History: None Reported Past Drug Use History: None Reported - Past Family History Sister(s) Family Medical History: Cancer Additional Family Medical History / Comment(s): Breast cancer. General Exam Limitations: no limitations General appearance: alert, in no apparent distress Head exam: Present: normocephalic Eye exam: Present: normal appearance, PERRL, EOMI ENT exam: Present: normal oropharynx Neck exam: Present: normal inspection Respiratory exam: Present: normal lung sounds bilaterally Cardiovascular Exam: Present: regular rate, normal rhythm GI/Abdominal exam: Present: soft. Absent: tenderness Extremities exam: Present: normal inspection Neurological exam: Present: alert, oriented X3, CN II-XII intact, abnormal gait (Patient did stutter twice while walking approximately 15 feet). Absent: motor sensory deficit Expanded Neurological exam: Present: protecting the airway Speech: Present: fluid speech Cranial nerves: EOM's Intact: Normal, Facial Sensation: Normal Cerebellar function: Finger to Nose: Normal, Heel to Anderson: Normal Sensory exam: Upper Extremity Light Touch: Normal, Lower Extremity Light Touch: Normal Motor strength exam: RUE: 5, LUE: 5, RLE: 5, LLE: 5 Eye Response: (4) open spontaneously Motor Response: (6) obeys commands Verbal Response: (5) oriented Psychiatric exam: Present: normal affect, normal mood Skin exam: Present: normal color Course Vital Signs 12/17/22 12/17/22 12/17/22 14:11 15:00 15:16 Temperature 98 F 98.1 F Pulse Rate 75 65 66 Respiratory 16 17 16 Rate Blood Pressure 137/80 140/76 133/81 O2 Sat by Pulse 98 93 L 93 L Oximetry EKG Findings - EKG Results: EKG: interpreted by ERMD (Left axis. LVH criteria.), sinus rhythm, normal ST/T Medical Decision Making - Medical Decision Making Was pt. sent in by a medical professional or institution (, PA, PAROLE SUPERVISOR, urgent care, hospital, or penitentiary...) When possible be specific @ -No Did you speak to anyone other than the patient for history (EMS, parent, family, police, friend...)? What history was obtained from this source @ -Family is present who helps confirm history Did you review nursing and triage notes (agree or disagree)? Why? @ -I reviewed and agree with nursing and triage notes Were old charts reviewed (outside hosp., previous admission, EMS record, old EKG, old radiological studies, urgent care reports/EKG's, penitentiary records)? Report findings @ -No old charts were reviewed Differential Diagnosis (chest pain, altered mental status, abdominal pain women, abdominal pain men, vaginal bleeding, weakness, fever, dyspnea, syncope, headache, dizziness, GI bleed, back pain, seizure, CVA, palpatations, mental health, musculoskeletal)? @ -Differential Weakness: Hypoglycemia, shock, sepsis, hyponatremia, anemia, infection, UT, ETOH, adverse medicine reaction, overdose, stroke, this is not meant to be an all-inclusive list. EKG interpreted by me (3pts min.). @ -As above X-rays interpreted by me (1pt min.). @ -Chest x-ray shows no acute process CT interpreted by me (1pt min.). @ -Computed tomography scan of the brain shows no large mass or hemorrhage U/S interpreted by me (1pt. min.). @ -None done What testing was considered but not performed or refused? (CT, X-rays, U/S, labs)? Why? @ -None What meds were considered but not given or refused? Why? @ -None Did you discuss the management of the patient with other professionals (professionals i.e. , PA, PAROLE SUPERVISOR, lab, RT, psych nurse, secondary social studies teacher, helper/driver, teacher, electrical engineering drafting officer, correctional casework specialist)? Give summary @ -Case was discussed with Dr. roblero, who will admit covering Dr. Arrington Was smoking cessation discussed for >3mins.? @ -No Was critical care preformed (if so, how long)? @ -No Were there social determinants of health that impacted care today? How? (Homelessness, low income, unemployed, alcoholism, drug addiction, transportation, low edu. Level, literacy, decrease access to med. care, custodial, rehab)? @ -No Was there de-escalation of care discussed even if they declined (Discuss DNR or withdrawal of care, Hospice)? DNR status @ -No What co-morbidities impacted this encounter? (DM, HTN, Smoking, COPD, CAD, Cancer, CVA, ARF, Chemo, Hep., AIDS, mental health diagnosis, sleep apnea, morbid obesity)? @ -None Was patient admitted / discharged? Hospital course, mention meds given and route, prescriptions, significant lab abnormalities, going to OR and other pertinent info. @ -Patient presents with lightheadedness and ataxia. Patient does have some mild ataxia on exam. There is concern and potential for posterior stroke not visualized on computed tomography scan. Patient will be admitted with neurology consult. Admission orders written. Undiagnosed new problem with uncertain prognosis? @ -No Drug Therapy requiring intensive monitoring for toxicity (Heparin, Nitro, Insulin, Cardizem)? @ -No Were any procedures done? @ -No Diagnosis/symptom? @ -Ataxia Acute, or Chronic, or Acute on Chronic? @ -Acute Uncomplicated (without systemic symptoms) or Complicated (systemic symptoms)? @ -default Side effects of treatment? @ -No Exacerbation, Progression, or Severe Exacerbation? @ -No Poses a threat to life or bodily function? How? (Chest pain, USA, UT, pneumonia, PE, COPD, DKA, ARF, appy, cholecystitis, CVA, Diverticulitis, Homicidal, Suicidal, threat to staff... and all critical care pts) @ -No - Lab Data Result diagrams: 12/17/22 14:23 12/17/22 14:23 Lab Results 12/17/22 12/17/22 12/17/22 Range/Units 14:23 14:23 14:23 WBC 8.9 (3.8-10.6) k/uL RBC 5.06 (3.80-5.40) m/uL Hgb 14.8 (11.4-16.0) gm/dL Hct 45.1 (34.0-46.0) % MCV 89.3 (80.0-100.0) fL MCH 29.3 (25.0-35.0) pg MCHC 32.8 (31.0-37.0) g/dL RDW 13.5 (11.5-15.5) % Plt Count 235 (150-450) k/uL MPV 8.4 Neutrophils % 61 % Lymphocytes % 26 % Monocytes % 7 % Eosinophils % 4 % Basophils % 0 % Neutrophils # 5.4 (1.3-7.7) k/uL Lymphocytes # 2.3 (1.0-4.8) k/uL Monocytes # 0.6 (0-1.0) k/uL Eosinophils # 0.3 (0-0.7) k/uL Basophils # 0.0 (0-0.2) k/uL PT 9.7 (9.0-12.0) sec INR 0.9 (<1.2) APTT 23.2 (22.0-30.0) sec Sodium 139 (137-145) mmol/L Potassium 4.6 (3.5-5.1) mmol/L Chloride 108 H (98-107) mmol/L Carbon Dioxide 23 (22-30) mmol/L Anion Gap 8 mmol/L BUN 22 H (7-17) mg/dL Creatinine 0.71 (0.52-1.04) mg/dL Est GFR (CKD-EPI)AfAm >90 (>60 ml/min/1.73 sqM) Est GFR (CKD-EPI)NonAf 83 (>60 ml/min/1.73 sqM) Glucose 121 H (74-99) mg/dL Calcium 9.3 (8.4-10.2) mg/dL Total Bilirubin 0.7 (0.2-1.3) mg/dL AST 40 H (14-36) U/L ALT 21 (4-34) U/L Alkaline Phosphatase 87 (38-126) U/L Creatine Kinase 101 (30-135) U/L Troponin I (0.000-0.034) ng/mL C-Reactive Protein <0.5 (<1.0) mg/dL Total Protein 6.6 (6.3-8.2) g/dL Albumin 4.0 (3.5-5.0) g/dL 12/17/22 Range/Units 14:23 WBC (3.8-10.6) k/uL RBC (3.80-5.40) m/uL Hgb (11.4-16.0) gm/dL Hct (34.0-46.0) % MCV (80.0-100.0) fL MCH (25.0-35.0) pg MCHC (31.0-37.0) g/dL RDW (11.5-15.5) % Plt Count (150-450) k/uL MPV Neutrophils % % Lymphocytes % % Monocytes % % Eosinophils % % Basophils % % Neutrophils # (1.3-7.7) k/uL Lymphocytes # (1.0-4.8) k/uL Monocytes # (0-1.0) k/uL Eosinophils # (0-0.7) k/uL Basophils # (0-0.2) k/uL PT (9.0-12.0) sec INR (<1.2) APTT (22.0-30.0) sec Sodium (137-145) mmol/L Potassium (3.5-5.1) mmol/L Chloride (98-107) mmol/L Carbon Dioxide (22-30) mmol/L Anion Gap mmol/L BUN (7-17) mg/dL Creatinine (0.52-1.04) mg/dL Est GFR (CKD-EPI)AfAm (>60 ml/min/1.73 sqM) Est GFR (CKD-EPI)NonAf (>60 ml/min/1.73 sqM) Glucose (74-99) mg/dL Calcium (8.4-10.2) mg/dL Total Bilirubin (0.2-1.3) mg/dL AST (14-36) U/L ALT (4-34) U/L Alkaline Phosphatase (38-126) U/L Creatine Kinase (30-135) U/L Troponin I <0.012 (0.000-0.034) ng/mL C-Reactive Protein (<1.0) mg/dL Total Protein (6.3-8.2) g/dL Albumin (3.5-5.0) g/dL Disposition Clinical Impression: Ataxia Disposition: ADMITTED IP TO THIS HOSP Is patient prescribed a controlled substance at d/c from ED?: No Referrals: Teodoro Arrington MD [Primary Care Provider] - 1-2 days Time of Disposition: 15:38
[2022-12-17 14:55] LABS: Basophils % (A) 0 %; Eosinophils # (A) 0.3 k/uL (0-0.7); Eosinophils % (A) 4 %; HCT 45.1 % (34.0-46.0); HGB 14.8 gm/dL (11.4-16.0); Lymphocytes # (A) 2.3 k/uL (1.0-4.8); Lymphocytes % (A) 26 %; MCH 29.3 pg (25.0-35.0); MCHC 32.8 g/dL (31.0-37.0); MCV 89.3 fL (80.0-100.0); Mean Platelet Volume 8.4; Monocytes # (A) 0.6 k/uL (0-1.0); Monocytes % (A) 7 %; Neutrophils # (A) 5.4 k/uL (1.3-7.7); Neutrophils % (A) 61 %; Platelet Count 235 k/uL (150-450); RBC 5.06 m/uL (3.80-5.40); RDW 13.5 % (11.5-15.5); WBC 8.9 k/uL (3.8-10.6)
[2022-12-17 15:07] LABS: ALT 21 U/L (4-34); AST 40 U/L (14-36); African American GFR (CKD) >90 (>60 ml/min/1.73 sqM); Alkaline Phosphatase 87 U/L (38-126); Anion Gap 8 mmol/L; Blood Urea Nitrogen 22 mg/dL (7-17); Calcium 9.3 mg/dL (8.4-10.2); Carbon Dioxide 23 mmol/L (22-30); Chloride 108 mmol/L (98-107); Creatine Kinase 101 U/L (30-135); Glucose 121 mg/dL (74-99); Non-African American GFR(CKD) 83 (>60 ml/min/1.73 sqM); Potassium 4.6 mmol/L (3.5-5.1); Sodium 139 mmol/L (137-145); Total Bilirubin 0.7 mg/dL (0.2-1.3); Total Protein 6.6 g/dL (6.3-8.2)
--- NOTE | 2022-12-17 15:17 | CT ---
EXAMINATION TYPE: CT brain wo con DATE OF EXAM: 12/17/2022 COMPARISON: 12/07/2021 HISTORY: Neuro deficit, woke up at 0930 today with dizziness and ataxia. CT DLP: 1169.4 mGycm Automated exposure control for dose reduction was used. FINDINGS: The ventricles, basal cisterns and sulci over convexities are moderately enlarged consistent with mod erate age-appropriate atrophy. There is no acute intra or extra-axial hemorrhage. No abnormal density is seen throughout the brain parenchyma. There is no mass effect or shift of midline structures. The posterior fossa is grossly normal. The intraorbital contents appear normal and symmetric. Visualized paranasal sinuses and mastoid air cells are well-aerated. IMPRESSION: 1. Age-appropriate atrophy. 2. No acute bleed or mass effect.
--- NOTE | 2022-12-17 15:18 | XR ---
EXAMINATION TYPE: XR chest 2V DATE OF EXAM: 12/17/2022 COMPARISON: 03/31/2022 HISTORY: Altered mental status TECHNIQUE: Frontal and lateral views of the chest are obtained. FINDINGS: There is no focal air space opacity, pleural effusion, or pneumothorax seen. The cardiac silhouette size is within normal limits. The osseous structures are intact. IMPRESSION: No acute cardiopulmonary process. No interval change.
[2022-12-17 15:28] LABS: INR 0.9 (<1.2); Partial Thromboplastin Time 23.2 sec (22.0-30.0); Prothrombin Time 9.7 sec (9.0-12.0)
[2022-12-17 15:30] LABS: C Reactive Protein <0.5 mg/dL (<1.0)
[2022-12-17] MEDS ORDERED: MECLIZINE 12.5 MG TAB PO STA (15:38)
[2022-12-17] MEDS ORDERED: ASPIRIN 325 MG TAB PO STA (15:39)
[2022-12-17] MEDS: SODIUM CHLORIDE 0.9% 1,000 ML IV SCH (15:57)
[2022-12-17 16:21] LABS: Erythrocyte Sedimentation Rate 2 mm/hr (0-20)
[2022-12-17 16:52] VITALS: RESP 16
--- NOTE | 2022-12-17 17:47 | US ---
EXAMINATION TYPE: US carotid duplex BILAT DATE OF EXAM: 12/17/2022 COMPARISON: NONE CLINICAL INDICATION: Female, 77 years old with history of Stenosis; Weakness TECHNIQUE: Carotid duplex ultrasound examination. Indirect Doppler criteria was utilized. FINDINGS: EXAM MEASUREMENTS: RIGHT: Peak Systolic Velocity (PSV) cm/sec ----- Right CCA: 52.3 ----- Right ICA: 92.4 ----- Right ECA: 62.5 ICA/CCA ratio: 1.8 RIGHT: End Diastole cm/sec ----- Right CCA: 12.9 ----- Right ICA: 31.0 ----- Right ECA: 9.8 LEFT: Peak Systolic Velocity (PSV) cm/sec ----- Left CCA: 57.8 ----- Left ICA: 161 ----- Left ECA: 78.6 ICA/CCA ratio: 2.8 LEFT: End Diastole cm/sec ----- Left CCA: 13.3 ----- Left ICA: 50.6 ----- Left ECA: 8.6 VERTEBRALS (direction of flow): Right Vertebral: Antegrade Left Vertebral: Antegrade Rhythm: Normal BOARD STACKER NOTES: Slightly elevated velocities left ICA due to tortuosity, otherwise no evidence of significant stenosis. IMPRESSION: 1. No significant common or internal carotid artery stenosis. 2. no plaque formation in the carotid bulbs or proximal internal carotid arteries. Criteria for Assigning % of Stenosis / Diameter reduction (Estimation based on the indirect measurements of the internal carotid artery velocities (ICA PSV). 1. Normal (no stenosis)=ICA PSV < 125 cm/s: ratio < 2.0: ICA EDV<40 cm/s. 2. Less than 50% stenosis=ICA PSV < 125 cm/s: ratio < 2.0: ICA EDV<40 cm/s. 3. 50 to 69% stenosis=ICA PSV of 125 to 230 cm/s: ration 2.0 ? 4.0: ICA EDV 40-100 cm/s. 4. Greater than 70% stenosis to near occlusion= ICA PSV > 230 cm/s: ratio > 4.0: ICA EDV > 100 cm/s. 5. Near occlusion= ICA PSV velocities may be low or undetectable: variable ratio and ICA EDV. 6. Total occlusion=unable to detect flow.
--- NOTE | 2022-12-17 18:59 | P.HPIM ---
History of Present Illness H&P Date: 12/17/22 Chief Complaint: Dizziness 77-year-old female, history of asthma, hyperlipidemia, GERD, presenting to the emergency department feeling off balance. Onset of symptoms was this morning when she woke. Patient felt fine last night. Patient feels lightheaded. Patient is having some difficulty with walking. Patient has mild fullness of her head and no left temporal region. Patient states it is not fullness. No visual change. No history of similar symptoms previously. No speech problems. No extremity weakness or loss of sensation. Blood work completed in ED reveals a WBC of 8.9, hemoglobin of 14.8 and platelet count of 235, sodium 139, potassium 4.6, BUN 22 with creatinine of 0.71 and blood glucose of 121; troponin of less than 0.012 EKG: Left axis. LVH criteria., sinus rhythm, normal ST/T Chest x-ray shows no acute process Computed tomography scan of the brain shows no large mass or hemorrhage Bilateral carotid Doppler completed doesn't reveal any significant common or internal carotid artery stenosis Review of Systems REVIEW OF SYSTEMS: CONSTITUTIONAL: No fever, no malaise, no fatigue. HEENT: No recent visual problems or hearing problems. Denied any sore throat. CARDIOVASCULAR: No chest pain, orthopnea, PND, no palpitations, no syncope. PULMONARY: No shortness of breath, no cough, no hemoptysis. GASTROINTESTINAL: No diarrhea, no nausea, no vomiting, no abdominal pain. NEUROLOGICAL: No headaches, no weakness, no numbness. HEMATOLOGICAL: Denies any bleeding or petechiae. GENITOURINARY: Denies any burning micturition, frequency, or urgency. MUSCULOSKELETAL/RHEUMATOLOGICAL: Denies any joint pain, swelling, or any muscle pain. ENDOCRINE: Denies any polyuria or polydipsia. The rest of the 14-point review of systems is negative. Past Medical History Past Medical History: Asthma, Cancer, GERD/Reflux, Hyperlipidemia, Pneumonia Additional Past Medical History / Comment(s): Hx skin cancer, hx [place] Palsy, "mild varicose veins." Shoghren's - dry mouth and eyes. History of Any Multi-Drug Resistant Organisms: None Reported Past Surgical History: Hysterectomy, Orthopedic Surgery Additional Past Surgical History / Comment(s): Bilateral cataracts removed, right knee arthroscopy, Mika fundoplication. goniotomy rt eye Past Anesthesia/Blood Transfusion Reactions: Motion Sickness Past Psychological History: Depression Smoking Status: Former smoker Past Alcohol Use History: None Reported Past Drug Use History: None Reported - Past Family History Sister(s) Family Medical History: Cancer Additional Family Medical History / Comment(s): Breast cancer. Medications and Allergies Home Medications Medication Instructions Recorded Confirmed Type Pilocarpine [Salagen] 5 mg PO HS 09/02/15 12/17/22 History Simvastatin 20 mg PO HS 09/02/15 12/17/22 History clonazePAM [Clonazepam] 0.5 mg PO HS 09/02/15 12/17/22 History Fluticasone/Vilanterol [Breo 1 puff INHALATION RT-HS 07/24/20 12/17/22 History Ellipta 100-25 Mcg Inhaler] Melatonin [Melatonin Dissolving 10 mg PO HS 07/24/20 12/17/22 History Tablet] Montelukast [Singulair] 10 mg PO HS 07/24/20 12/17/22 History Pantoprazole [Protonix] 40 mg PO HS 07/24/20 12/17/22 History Cholecalciferol [Vitamin D3 (125 250 mcg PO HS 12/17/22 12/17/22 History Mcg = 5000 Iu)] Loperamide HCl/Simethicone 1 tab PO HS 12/17/22 12/17/22 History [Loperamide-Simeth 2-125 mg Tab] Venlafaxine HCl [Effexor XR] 75 mg PO HS 12/17/22 12/17/22 History cycloSPORINE 0.05% OPHTH SOLN 1 drop BOTH EYES Q12H 12/17/22 12/17/22 History [Restasis] Allergies Allergy/AdvReac Type Severity Reaction Status Date / Time No Known Allergies Allergy Verified 12/17/22 16:27 Physical Exam Vitals: Vital Signs Temp Pulse Resp BP Pulse Ox 12/17/22 16:00 98.0 F 64 17 149/72 97 12/17/22 15:45 65 16 144/83 98 12/17/22 15:30 66 18 132/79 97 12/17/22 15:16 66 16 133/81 93 L 12/17/22 15:00 98.1 F 65 17 140/76 93 L 12/17/22 14:11 98 F 75 16 137/80 98 Intake and Output 12/17/22 12/17/22 12/17/22 06:59 14:59 22:59 Other: Weight 63.503 kg PHYSICAL EXAMINATION: GENERAL: The patient is alert and oriented x3, not in any acute distress. Well developed, well nourished. HEENT: Pupils are round and equally reacting to light. EOMI. No scleral icterus. No conjunctival pallor. Normocephalic, atraumatic. No pharyngeal erythema. No thyromegaly. CARDIOVASCULAR: S1 and S2 present. No murmurs, rubs, or gallops. PULMONARY: Chest is clear to auscultation, no wheezing or crackles. ABDOMEN: Soft, nontender, nondistended, normoactive bowel sounds. No palpable organomegaly. MUSCULOSKELETAL: No joint swelling or deformity. EXTREMITIES: No cyanosis, clubbing, or pedal edema. NEUROLOGICAL: Gross neurological examination reveals ataxia; did not reveal any focal deficits. SKIN: No rashes. Results CBC & Chem 7: 12/17/22 14:23 12/17/22 14:23 Labs: Abnormal Lab Results - Last 24 Hours (Table) 12/17/22 Range/Units 14:23 Chloride 108 H (98-107) mmol/L BUN 22 H (7-17) mg/dL Glucose 121 H (74-99) mg/dL AST 40 H (14-36) U/L Assessment and Plan Assessment: 1. Dizziness/ataxia; rule out TIA versus CVA - CT of the head completed in ED does not reveal any acute intracranial process; bilateral carotid Doppler was completed which does not show any significant, not internal carotid artery stenosis - Patient will be admitted to telemetry; monitor neuro checks per protocol - Consult neurology for further evaluation 2. Mild KARTIK; BUN is elevated at 22 with creatinine normal at 0.71 -- patient is placed on IV fluids in form of normal saline for slow IV fluid hydration at a rate of 75 mL an hour; monitor strict TRISTIAN's, daily weights, renal function and lites; avoid nephrotoxins and hypotension 3. Mild transaminitis; likely related to statin therapy; we will monitor liver enzymes mild continue with home dose of statins; make further recommendations pending test results 4. Asthma; not in exacerbation; continue with home immunotherapy; Singulair 10 mg by mouth daily at bedtime 5. Hyperlipidemia; Zocor 20 mg by mouth daily at bedtime 6. Vitamin D deficiency; continue home dose of vitamin D3 250 MCG daily 7. Anxiety/depression; clonazepam 0.5 mg by mouth daily at bedtime; Effexor 75 mg daily at bedtime 8. Gastro-surgical reflux disease; Protonix 40 mg daily at bedtime DVT prophylaxis; SCDs only given concern for possible CVA CODE STATUS; full code
[2022-12-17] MEDS ORDERED: SYMBICORT 80-4.5 MCG INHALER INHALATION SCH (20:00)
[2022-12-17] MEDS ORDERED: LOPERAMIDE 2 MG CAP PO SCH (21:00)
[2022-12-17] MEDS ORDERED: ATORVASTATIN 10 MG TAB PO SCH (21:00)
[2022-12-17] MEDS ORDERED: MONTELUKAST 10 MG TAB PO SCH (21:00)
[2022-12-17] MEDS ORDERED: MELATONIN 5 MG TABLET PO SCH (21:00)
[2022-12-17] MEDS ORDERED: PILOCARPINE 5 MG TAB PO SCH (21:00)
[2022-12-17] MEDS ORDERED: PANTOPRAZOLE 40 MG TABLET PO SCH (21:00)
[2022-12-17] MEDS ORDERED: VENLAFAXINE HCL ER 75 MG CAP PO SCH (21:00)
[2022-12-17] MEDS ORDERED: clonazePAM 0.5 MG TAB PO SCH (21:00)
[2022-12-17] MEDS ORDERED: CHOLECALCIFEROL 125 MCG (5000 IU) TABLET PO SCH (21:00)
[2022-12-17] MEDS ORDERED: SIMETHICONE 80 MG CHEWABLE PO SCH (21:00)
[2022-12-17] MEDS: cycloSPORINE 0.05% OPHTH 0.4 ML DROPERETTE BOTH EYES SCH (21:20)
[2022-12-18] MEDS: SODIUM CHLORIDE 0.9% 1,000 ML IV SCH ×2 (02:41→11:24)
[2022-12-18] MEDS: cycloSPORINE 0.05% OPHTH 0.4 ML DROPERETTE BOTH EYES SCH (07:30)
[2022-12-18 07:53] VITALS: BP 107/66; PULSE 64; TEMP 97.7
[2022-12-18] MEDS ORDERED: ASPIRIN 325 MG TAB PO SCH (09:00)
[2022-12-18 09:47] LABS: Basophils # (A) 0.06 X 10*3/uL (0.00-0.10); Basophils % (A) 1.1 %; Eosinophils # (A) 0.36 X 10*3/uL (0.04-0.35); Eosinophils % (A) 6.5 %; HCT 43.1 % (37.2-46.3); HGB 13.9 d/dL (12.0-15.0); Immature Grans, Automated 0 %; Lymphocytes # (A) 2.26 X 10*3/uL (0.90-5.00); Lymphocytes % (A) 40.6 %; MCH 28.7 pg (27.0-32.0); MCHC 32.3 d/dL (32.0-37.0); MCV 88.9 FL (80.0-97.0); Mean Platelet Volume 10.4 FL (9.5-12.2); Monocytes # (A) 0.57 X 10*3/uL (0.20-1.00); Monocytes % (A) 10.3 %; NRBC Per 100 WBC 0 X 10*3/uL (0.00-0.01); Neutrophils # (A) 2.31 X 10*3/uL (1.80-7.70); Neutrophils % (A) 41.5 %; Platelet Count 224 X 10*3/uL (140-440); RBC 4.85 X 10*6/uL (4.10-5.20); RDW 13.6 % (11.5-14.5); WBC 5.56 X 10*3/uL (4.50-10.00)
[2022-12-18 09:51] LABS: Chol/HDL Ratio 2.47 Ratio; LDL Cholesterol,Calculated 76.5 mg/dL (0.0-131.0); VLDL Calculation 17.98 mg/dL (5.00-40.00)
--- NOTE | 2022-12-18 11:05 | P.CNNES ---
History of Present Illness Consult date: 12/18/22 Requesting physician: Benigno Yee Reason for Consult: ataxia History of Present Illness: This is a 77-year-old woman with history of vertigo who presented emergency department because of dizziness with unsteady walk-in. Patient stated that the overnight before she came to the hospital at nighttime when she was walking she felt she was on dizzy and then she went to sleep and woke up at 9:30 in the morning on 12/17/2022 then 100 noticed that she was dizzy walking around and was unsteady walk-in. When she laid down and she denies any dizziness at. She denies any ringing of the ears or hearing loss. Denies any nausea any vomiting. Denies any focal weakness. Denies any set as sensory issues appear denies any visual disturbance that is new. He stated she had a recent the viral infection the about a week ago. She feels today she's drastically better and she is walking well without any issues. She feels back to baseline. She denies being on any antiplatelet. Per the ED team of upon presentation they stated that she had the finger to nose that's normal heel to harkins is normal on examination but then the later they stated that she has mild ataxia on exam and they're concerned about posture stroke not visualized on CT of the head. Some of the workup during his hospital visit consisted of: Patient is afebrile ESR is 2 CBC with differential is unremarkable Lipid panel is tried low start is a 89, cholesterol is 159, LDL [address] of the head is reported as age appropriate atrophy. No acute bleed or mass effect. I personally reviewed the CT of the head and I agree there is no acute or subacute ischemia and there is no bleed. There is no mass effect is appreciable. Carotid duplex is reported as no significant common or internal carotid artery stenosis. No plaque formation in the carotid bulb or proximal internal carotid artery. Review of Systems The positive and negative as per HPI. Past Medical History Past Medical History: Asthma, Cancer, GERD/Reflux, Hyperlipidemia, Pneumonia Additional Past Medical History / Comment(s): Hx skin cancer, hx [place] Palsy, "mild varicose veins." Shoghren's - dry mouth and eyes. History of Any Multi-Drug Resistant Organisms: None Reported Past Surgical History: Hysterectomy, Orthopedic Surgery Additional Past Surgical History / Comment(s): Bilateral cataracts removed, ri ght knee arthroscopy, Mika fundoplication. goniotomy rt eye Past Anesthesia/Blood Transfusion Reactions: Motion Sickness Past Psychological History: Depression Smoking Status: Former smoker Past Alcohol Use History: None Reported Past Drug Use History: None Reported - Past Family History Sister(s) Family Medical History: Cancer Additional Family Medical History / Comment(s): Breast cancer. Medications and Allergies Home Medications Medication Instructions Recorded Confirmed Type Pilocarpine [Salagen] 5 mg PO HS 09/02/15 12/17/22 History Simvastatin 20 mg PO HS 09/02/15 12/17/22 History clonazePAM [Clonazepam] 0.5 mg PO HS 09/02/15 12/17/22 History Fluticasone/Vilanterol [Breo 1 puff INHALATION RT-HS 07/24/20 12/17/22 History Ellipta 100-25 Mcg Inhaler] Melatonin [Melatonin Dissolving 10 mg PO HS 07/24/20 12/17/22 History Tablet] Montelukast [Singulair] 10 mg PO HS 07/24/20 12/17/22 History Pantoprazole [Protonix] 40 mg PO HS 07/24/20 12/17/22 History Cholecalciferol [Vitamin D3 (125 250 mcg PO HS 12/17/22 12/17/22 History Mcg = 5000 Iu)] Loperamide HCl/Simethicone 1 tab PO HS 12/17/22 12/17/22 History [Loperamide-Simeth 2-125 mg Tab] Venlafaxine HCl [Effexor XR] 75 mg PO HS 12/17/22 12/17/22 History cycloSPORINE 0.05% OPHTH SOLN 1 drop BOTH EYES Q12H 12/17/22 12/17/22 History [Restasis] Aspirin 325 mg PO DAILY tab 12/18/22 Rx Allergies Allergy/AdvReac Type Severity Reaction Status Date / Time No Known Allergies Allergy Verified 12/17/22 16:27 Physical Examination - Vital Signs Vital Signs: Vital Signs Temp Pulse Pulse Resp BP BP Pulse Ox 12/18/22 07:00 97.7 F 64 16 107/66 93 L 12/18/22 03:15 97.5 F L 63 16 121/70 96 12/17/22 21:15 97.8 F 64 16 166/89 100 12/17/22 18:49 98.0 F 65 16 155/81 98 12/17/22 17:40 98.0 F 64 17 147/80 97 12/17/22 16:48 98.1 F 65 16 149/84 96 12/17/22 16:00 98.0 F 64 17 149/72 97 12/17/22 15:45 65 16 144/83 98 12/17/22 15:30 66 18 132/79 97 12/17/22 15:16 66 16 133/81 93 L 12/17/22 15:00 98.1 F 65 17 140/76 93 L 12/17/22 14:11 98 F 75 16 137/80 98 Intake and Output 12/17/22 12/18/22 12/18/22 22:59 06:59 14:59 Other: Voiding Method Toilet Toilet # Voids 1 2 Weight 63.503 kg GENERAL: The patient is lying in bed and is not in acute distress. NEUROLOGICAL: Higher mental function: The patient is awake, alert, oriented to self, place and time. Patient is following commands. No aphasia and no neglect. Cranial nerves: The pupils are round, equal and reactive to light and accommodation. Visual parada are full to confrontation throughout. Extraocular movement is intact no nystagmus is noted. Facial sensation is normal to touch throughout. The facial strength is normal throughout. Hearing is mildly decreased bilaterally to hand rub. Tongue is midline and moved [id number] without any difficulty. No dysarthria is noted. Shoulder shrug is normal bilaterally. Motor: Gait is normal. The strength is 5 over 5 throughout. Normal tone and bulk. Cerebellum: Normal finger to nose heel to harkins bilaterally. Sensation: Sensation is normal to touch throughout. Reflexes (right/left): 2+ throughout. Plantars are downgoing bilaterally. Results - Laboratory Findings CBC and BMP: 12/18/22 05:57 12/18/22 05:57 Abnormal Lab Findings: Abnormal Labs 12/17/22 12/18/22 12/18/22 14:23 05:57 05:57 Eosinophils # 0.36 H Chloride 108 H BUN 22 H Glucose 121 H AST 40 H HDL Cholesterol 64.50 H Assessment and Plan Assessment: This is a 77-year-old woman who had the recent upper respiratory tract infection according to patient about a week ago and the she presented to the ED yesterday because of dizziness upon walking and sensation of unsteady. She stated that her symptoms has resolved. Upon examining the patient's she had no focal deficit. She does have history of vertigo. Acute on chronic vertigo (dizziness with a sensation of unsteady walk-in) seems more likely peripheral than central. No focal deficits on examination. She had a recent viral infection but currently today feels she is doing drastically better. History of vertigo Plan: CT of the head and carotid duplex is unremarkable I recommended MRI of the brain w/ and w/o but patient stated that she is unable to stay in the hospital for that intensity care of her . Because her symptoms has resolved I would recommend MRI as an outpatient. If patient changes her mind then will pursue with MRI as inpatient. Patient continues to have the vertigo station recommend the patient to follow-up with the an ENT as an outpatient and consider vestibular rehab therapy She started on aspirin 325 mg daily by the ED as well as Lipitor 10 mg daily at bedtime by the primary team. Also recommend the patient to follow-up with a neurologist as outpatient within 2 weeks We'll defer the rest of the medical medical the primary team The plan discussed with the patient and her nurse Thank you for the consultation Dr. Fisher will start neurology service tomorrow A.M. Time with Patient: Greater than 30
[2022-12-18 12:02] LABS: ALT 17 U/L (8-44); AST 18 U/L (13-35); Albumin 3.6 d/dL (3.8-4.9); Alkaline Phosphatase 79 U/L (41-126); BUN/Creat Ratio 19.25 Ratio (12.00-20.00); Bilirubin, Conjugated <0.20 mg/dL (0.20-0.40); Bilirubin,Unconjugated >0.10 mg/dL (0.20-1.00); Blood Urea Nitrogen 15.4 mg/dL (9.0-27.0); Calcium 8.8 mg/dL (8.7-10.3); Carbon Dioxide 25.4 mmol/L (21.6-31.8); Chloride 112 mmol/L (96-109); Globulin 1.5 d/dL (1.6-3.3); Glucose 80 mg/dL (70-110); Potassium 4.2 mmol/L (3.5-5.5); Sodium 144 mmol/L (135-145); Total Bilirubin 0.3 mg/dL (0.3-1.2); Total Protein 5.1 d/dL (6.2-8.2)
--- NOTE | 2022-12-18 13:38 | P.DS ---
Providers Date of admission: 12/17/22 15:39 Expected date of discharge: 12/18/22 Attending physician: Jesenia Bhatia MD Consults: 12/17/22 15:39 Consult Physician Urgent Consulting Provider: Rony Arredondo Consult Reason/Comments: ataxia Do you want consulting provider notified?: Yes Primary care physician: [facility] Course: 77-year-old female, history of asthma, hyperlipidemia, GERD, presenting to the emergency department feeling off balance. Onset of symptoms was this morning when she woke. Patient felt fine last night. Patient feels lightheaded. Patient is having some difficulty with walking. Patient has mild fullness of her head and no left temporal region. Patient states it is not fullness. No visual change. No history of similar symptoms previously. No speech problems. No extremity weakness or loss of sensation. Blood work completed in ED reveals a WBC of 8.9, hemoglobin of 14.8 and platelet count of 235, sodium 139, potassium 4.6, BUN 22 with creatinine of 0.71 and blood glucose of 121; troponin of less than 0.012 EKG: Left axis. LVH criteria., sinus rhythm, normal ST/T Chest x-ray shows no acute process Computed tomography scan of the brain shows no large mass or hemorrhage Bilateral carotid Doppler completed doesn't reveal any significant common or internal carotid artery stenosis 1. Dizziness/ataxia; rule out TIA versus CVA - CT of the head completed in ED does not reveal any acute intracranial process; bilateral carotid Doppler was completed which does not show any significant, not internal carotid artery stenosis - Patient will be admitted to telemetry; monitor neuro checks per protocol - Consult neurology for further evaluation 2. Mild KARTIK; BUN is elevated at 22 with creatinine normal at 0.71 -- patient is placed on IV fluids in form of normal saline for slow IV fluid hydration at a rate of 75 mL an hour; monitor strict TRISTIAN's, daily weights, renal function and lites; avoid nephrotoxins and hypotension 3. Mild transaminitis; likely related to statin therapy; we will monitor liver enzymes mild continue with home dose of statins; make further recommendations pending test results 4. Asthma; not in exacerbation; continue with home immunotherapy; Singulair 10 mg by mouth daily at bedtime 5. Hyperlipidemia; Zocor 20 mg by mouth daily at bedtime 6. Vitamin D deficiency; continue home dose of vitamin D3 250 MCG daily 7. Anxiety/depression; clonazepam 0.5 mg by mouth daily at bedtime; Effexor 75 mg daily at bedtime 8. Gastro-surgical reflux disease; Protonix 40 mg daily at bedtime Patient evaluated by neurology; MRI of the brain is recommended; patient requesting to be discharged; neurology agreeable on getting MRI as an outpatient along with ENT evaluation and vestibular rehab therapy Plan - Discharge Summary New Discharge Prescriptions: New Aspirin 325 mg PO DAILY tab Continue clonazePAM [Clonazepam] 0.5 mg PO HS Simvastatin 20 mg PO HS Pilocarpine [Salagen] 5 mg PO HS Fluticasone/Vilanterol [Breo Ellipta 100-25 Mcg Inhaler] 1 puff INHALATION RT-HS Pantoprazole [Protonix] 40 mg PO HS Cholecalciferol [Vitamin D3 (125 Mcg = 5000 Iu)] 250 mcg PO HS Montelukast [Singulair] 10 mg PO HS Melatonin [Melatonin Dissolving Tablet] 10 mg PO HS cycloSPORINE 0.05% OPHTH SOLN [Restasis] 1 drop BOTH EYES Q12H Venlafaxine HCl [Effexor XR] 75 mg PO HS Loperamide HCl/Simethicone [Loperamide-Simeth 2-125 mg Tab] 1 tab PO HS Discharge Medication List Pilocarpine [Salagen] 5 mg PO HS 09/02/15 [History] Simvastatin 20 mg PO HS 09/02/15 [History] clonazePAM [Clonazepam] 0.5 mg PO HS 09/02/15 [History] Fluticasone/Vilanterol [Breo Ellipta 100-25 Mcg Inhaler] 1 puff INHALATION RT-HS 07/24/20 [History] Melatonin [Melatonin Dissolving Tablet] 10 mg PO HS 07/24/20 [History] Montelukast [Singulair] 10 mg PO HS 07/24/20 [History] Pantoprazole [Protonix] 40 mg PO HS 07/24/20 [History] Cholecalciferol [Vitamin D3 (125 Mcg = 5000 Iu)] 250 mcg PO HS 12/17/22 [History] Loperamide HCl/Simethicone [Loperamide-Simeth 2-125 mg Tab] 1 tab PO HS 12/17/22 [History] Venlafaxine HCl [Effexor XR] 75 mg PO HS 12/17/22 [History] cycloSPORINE 0.05% OPHTH SOLN [Restasis] 1 drop BOTH EYES Q12H 12/17/22 [History] Aspirin 325 mg PO DAILY tab 12/18/22 [Rx] Follow up Appointment(s)/Referral(s): Teodoro Arrington MD [Primary Care Provider] - 1-2 days Patient Instructions/Handouts: Transient Ischemic Attack (DC) Discharge Disposition: HOME SELF-CARE
== END 2022-12-18 12:50 | disposition home or self-care (01) ==
LOC: EC 14:08 → 6NMEDSUR 15:39
PROVIDERS: ADMIT Internal Medicine; ATTEND Internal Medicine
DX: R42 Dizziness and giddiness (principal); J44.9 Chronic obstructive pulmonary disease, unspecified; J45.909 Unspecified asthma, uncomplicated; K21.9 Gastro-esophageal reflux disease without esophagitis; N17.9 Acute kidney failure, unspecified; R74.01 Elevation of levels of liver transaminase levels; E78.5 Hyperlipidemia, unspecified; E55.9 Vitamin D deficiency, unspecified; F32.A Depression, unspecified; G51.0 Bell's palsy; M35.00 Sjogren syndrome, unspecified; I83.90 Asymptomatic varicose veins of unspecified lower extremity; F41.9 Anxiety disorder, unspecified; Z87.01 Personal history of pneumonia (recurrent); Z85.828 Personal history of other malignant neoplasm of skin; Z90.710 Acquired absence of both cervix and uterus; Z79.899 Other long term (current) drug therapy; Z79.82 Long term (current) use of aspirin; Z80.3 Family history of malignant neoplasm of breast
CPT/HCPCS: 96361 ×3; 96360; 99285; 36415; 93005; 80061; 80053; 80048; 80076; 85652; 82550; 84484; 85025 ×2; 85610; 85730; 86140; 71046; 93880; 70450; G0378 ×2

== ENCOUNTER → 2023-01-09 | Outpatient (CLI) | payer MEDICARE ==
--- NOTE | 2023-01-09 21:41 | MR ---
EXAMINATION TYPE: MR brain wo/w con DATE OF EXAM: 01/09/2023 5:58 PM CLINICAL INDICATION:Female, 77 years old with history of I63.9 stroke, Evaluate for stroke, Rt leg wo uldn't work, dizziness COMPARISON: 12/17/2022 TECHNIQUE: Multi planar, multi sequence imaging was performed through the brain including: T1, T2, In version recovery, susceptibility weighted imaging and gradient echo imaging and Diffusion weighted im aging. The patient was then given intravenous contrast and multi planar, T1 fat-saturation images wer e obtained. IV Contrast: 6.5 cc Gadavist FINDINGS: Mild cerebral atrophy with proportional dilation of ventricular system. Over the right cerebral conve xity is a homogenously enhancing lesion with dural tail measuring 8 x 6 x 14 mm. Diffusion-weighted i maging shows no evidence of restricted diffusion to suggest acute/subacute infarct. Intracranial lia rial flow voids are maintained. Midline structures show no abnormality. Scattered foci of high T2 sig nal intensity are seen within the periventricular white matter. The susceptibility weighted images do not reveal any evidence for micro-hemorrhage. After administration of gadolinium, no additional area s of abnormal enhancement are present. The bone marrow signal is within normal limits. Paranasal sinuses and mastoid air cells: No significant paranasal sinus disease. Visualized orbits: Bilateral aphakia IMPRESSION: 1. No evidence of intracranial mass, acute/subacute infarct, or abnormal enhancement. 2. Suspected meningioma over the convexity of the right frontal lobe. 3. Nonspecific white matter changes, likely related to small vessel ischemic disease
== END | disposition home or self-care (01) ==
LOC: RADMRIMAIN 17:12
PROVIDERS: ATTEND Internal Medicine Geriatric Medicine
DX: I63.9 Cerebral infarction, unspecified (principal); R90.82 White matter disease, unspecified
CPT/HCPCS: 70553; A9585

== ENCOUNTER → 2023-07-28 | Outpatient (CLI) | payer MEDICARE ==
--- NOTE | 2023-07-28 10:07 | XR ---
EXAMINATION TYPE: XR chest 2V DATE OF EXAM: 07/28/2023 9:56 AM CLINICAL INDICATION:Female, 78 years old with history of J44.0 CHR OBSTRUCTIVE PULMON DISEASE WITH (A CUTE); [facility] COMPARISON: Chest radiographs from 12/17/2022. TECHNIQUE: XR chest 2V Frontal and lateral views of the chest. FINDINGS: Lungs/Pleura: There is no evidence of pleural effusion, focal consolidation, or pneumothorax. Pulmonary vascularity: Unremarkable. Heart/mediastinum: Cardiomediastinal silhouette is unremarkable. Musculoskeletal: No acute osseous pathology. IMPRESSION: No acute cardiopulmonary disease/process.
== END | disposition home or self-care (01) ==
LOC: RADXRMAIN 09:35
PROVIDERS: ATTEND Internal Medicine Geriatric Medicine
DX: J44.0 Chronic obstructive pulmonary disease with (acute) lower respiratory infection (principal)
CPT/HCPCS: 71046

== ENCOUNTER 2023-09-21 14:13 | Observation (INO) | payer MEDICARE ==
--- NOTE | 2023-09-21 14:59 | ED ---
General Adult HPI - General Chief complaint: Chest Pain Stated complaint: pain in L arm Time Seen by Provider: 09/21/23 14:30 Source: patient, RN notes reviewed, old records reviewed Mode of arrival: ambulatory Limitations: no limitations - History of Present Illness Initial comments: This is a 78-year-old female who presents to the emergency department the past medical history significant for high cholesterol. Patient states she thinks her mother had heart issues. Patient states that today she was not doing anything in particular when her left arm started aching and it was up into her jaw and a little bit in her chest. Patient states she is short of breath a little but she has COPD and that did not change with the chest pain. Patient states she has had a little bit of a cough recently. Patient denies any diaphoretic episode. Patient denies any nausea vomiting. Patient has abdominal pain. Patient denies any headache patient has numbness weakness - Related Data Home Medications Medication Instructions Recorded Confirmed Pilocarpine [Salagen] 5 mg PO HS 09/02/15 12/17/22 Simvastatin 20 mg PO HS 09/02/15 12/17/22 clonazePAM [Clonazepam] 0.5 mg PO HS 09/02/15 12/17/22 Fluticasone/Vilanterol [Breo 1 puff INHALATION RT-HS 07/24/20 12/17/22 Ellipta 100-25 Mcg Inhaler] Melatonin [Melatonin Dissolving 10 mg PO HS 07/24/20 12/17/22 Tablet] Montelukast [Singulair] 10 mg PO HS 07/24/20 12/17/22 Pantoprazole [Protonix] 40 mg PO HS 07/24/20 12/17/22 Cholecalciferol [Vitamin D3 (125 250 mcg PO HS 12/17/22 12/17/22 Mcg = 5000 Iu)] Loperamide HCl/Simethicone 1 tab PO HS 12/17/22 12/17/22 [Loperamide-Simeth 2-125 mg Tab] Venlafaxine HCl [Effexor XR] 75 mg PO HS 12/17/22 12/17/22 cycloSPORINE 0.05% OPHTH SOLN 1 drop BOTH EYES Q12H 12/17/22 12/17/22 [Restasis] Previous Rx's Medication Instructions Recorded Aspirin 325 mg PO DAILY tab 12/18/22 Allergies Allergy/AdvReac Type Severity Reaction Status Date / Time No Known Allergies Allergy Verified 09/21/23 14:32 Review of Systems ROS Statement: Those systems with pertinent positive or pertinent negative responses have been documented in the HPI. ROS Other: All systems not noted in ROS Statement are negative. Past Medical History Past Medical History: Asthma, Cancer, GERD/Reflux, Hyperlipidemia, Pneumonia Additional Past Medical History / Comment(s): Hx skin cancer, hx Kimberly Palsy, "mild varicose veins." Shoghren's - dry mouth and eyes. History of Any Multi-Drug Resistant Organisms: None Reported Past Surgical History: Hysterectomy, Orthopedic Surgery Additional Past Surgical History / Comment(s): Bilateral cataracts removed, right knee arthroscopy, Mika fundoplication. goniotomy rt eye Past Anesthesia/Blood Transfusion Reactions: Motion Sickness Past Psychological History: Depression Smoking Status: Former smoker Past Alcohol Use History: None Reported Past Drug Use History: None Reported - Past Family History Sister(s) Family Medical History: Cancer Additional Family Medical History / Comment(s): Breast cancer. General Exam - General Exam Comments Initial Comments: GENERAL: Patient is well-developed and well-nourished. Patient is nontoxic and well- hydrated and is in mild distress. ENT: Neck is soft and supple. No significant lymphadenopathy is noted. Oropharynx is clear. Moist mucous membranes. Neck has full range of motion without eliciting any pain. EYES: The sclera were anicteric and conjunctiva were pink and moist. Extraocular movements were intact and pupils were equal round and reactive to light. Eyelid s were unremarkable. PULMONARY: Unlabored respirations. Good breath sounds bilaterally. No audible rales rhonchi or wheezing was noted. CARDIOVASCULAR: There is a regular rate and rhythm without any murmurs gallops or rubs. ABDOMEN: Soft and nontender with normal bowel sounds. SKIN: Skin is clear with no lesions or rashes and otherwise unremarkable. NEUROLOGIC: Patient is alert and oriented x3. Cranial nerves II through XII are grossly intact. Motor and sensory are also intact. Normal speech, volume and content. Symmetrical smile. MUSCULOSKELETAL: Normal extremities with adequate strength and full range of motion. LYMPHATICS: No significant lymphadenopathy is noted PSYCHIATRIC: Normal psychiatric evaluation. Limitations: no limitations Course Vital Signs 09/21/23 09/21/23 09/21/23 14:27 15:02 15:31 Temperature 98.7 F Pulse Rate 84 84 Pulse Rate [ 84 Staffing Mgr ] Respiratory 18 16 Rate Blood Pressure 136/83 135/87 O2 Sat by Pulse 98 98 Oximetry Medical Decision Making - Medical Decision Making EKG is interpreted by myself but EKG shows a sinus rhythm 84 bpm ID interval is 131 QRS is 75 QT interval is 349 QTc is 390. Patient's EKG shows no ST segment ovation or depression. Was pt. sent in by a medical professional or institution (, [facility], MID LEVEL JAVA DEVELOPER, urgent care, hospital, or halfway...) When possible be specific @ -No Did you speak to anyone other than the patient for history (EMS, parent, family, police, friend...)? What history was obtained from this source @ -No Did you review nursing and triage notes (agree or disagree)? Why? @ -I reviewed and agree with nursing and triage notes Were old charts reviewed (outside hosp., previous admission, EMS record, old EKG, old radiological studies, urgent care reports/EKG's, halfway records)? Report findings @ -No old charts were reviewed Differential Diagnosis? @ -M differential chest pain EKG interpreted by me (3pts min.). @ -As above X-rays interpreted by me (1pt min.). @ -Chest x-ray shows no acute normality CT interpreted by me (1pt min.). @ -None done U/S interpreted by me (1pt. min.). @ -None done What testing was considered but not performed or refused? (CT, X-rays, U/S, labs)? Why? @ -None What meds were considered but not given or refused? Why? @ -None Did you discuss the management of the patient with other professionals (professionals i.e. , [facility], [employer] LEVEL JAVA DEVELOPER, lab, RT, psych nurse, licensed clinical social worker, finisher denture, teacher, special officer, director of casework services)? Give summary @ -Spoke with Dr. Whelan he agreed to admit the patient admit the patient wrote admitting orders Was smoking cessation discussed for >3mins.? @ -No Was critical care preformed (if so, how long)? @ -No Were there social determinants of health that impacted care today? How? (Homelessness, low income, unemployed, alcoholism, drug addiction, transportation, low edu. Level, literacy, decrease access to med. care, longterm, rehab)? @ -No Was there de-escalation of care discussed even if they declined (Discuss DNR or withdrawal of care, Hospice)? DNR status @ -No What co-morbidities impacted this encounter? (DM, HTN, Smoking, COPD, CAD, Cancer, CVA, ARF, Chemo, Hep., AIDS, mental health diagnosis, sleep apnea, morbid obesity)? @ -Cholesterol Was patient admitted / discharged? Hospital course, mention meds given and route, prescriptions, significant lab abnormalities, going to OR and other pertinent info. @ -Patient will be admitted for the chest pain and get repeat troponins cardiology be consulted I will admit the patient to Dr. Whelan Undiagnosed new problem with uncertain prognosis? @ -No Drug Therapy requiring intensive monitoring for toxicity (Heparin, Nitro, Insulin, Cardizem)? @ -No Were any procedures done? @ -None Diagnosis/symptom? @ -Chest pain Acute, or Chronic, or Acute on Chronic? @ -Acute Uncomplicated (without systemic symptoms) or Complicated (systemic symptoms)? @ -Complicated Side effects of treatment? @ -No Exacerbation, Progression, or Severe Exacerbation? @ -No Poses a threat to life or bodily function? How? (Chest pain, USA, AL, pneumonia, PE, COPD, DKA, ARF, appy, cholecystitis, CVA, Diverticulitis, Homicidal, Suicida l, threat to staff... and all critical care pts) @ -Yes this can lead to an AL and endorgan dysfunction - Lab Data Result diagrams: 09/21/23 14:58 09/21/23 14:58 Lab Results 09/21/23 09/21/23 09/21/23 Range/Units 14:58 14:58 14:58 WBC 9.4 (3.8-10.6) k/uL RBC 4.76 (3.80-5.40) m/uL Hgb 14.2 (11.4-16.0) gm/dL Hct 44.6 (34.0-46.0) % MCV 93.7 (80.0-100.0) fL MCH 29.8 (25.0-35.0) pg MCHC 31.8 (31.0-37.0) g/dL RDW 14.0 (11.5-15.5) % Plt Count 256 (150-450) k/uL MPV 7.6 Neutrophils % 75 % Lymphocytes % 15 % Monocytes % 6 % Eosinophils % 2 % Basophils % 1 % Neutrophils # 7.0 (1.3-7.7) k/uL Lymphocytes # 1.4 (1.0-4.8) k/uL Monocytes # 0.6 (0-1.0) k/uL Eosinophils # 0.1 (0-0.7) k/uL Basophils # 0.1 (0-0.2) k/uL PT 9.8 L (10.0-12.5) sec INR 0.9 (<1.2) APTT 22.5 (22.0-30.0) sec Sodium 138 (137-145) mmol/L Potassium 3.9 (3.5-5.1) mmol/L Chloride 108 H (98-107) mmol/L Carbon Dioxide 26 (22-30) mmol/L Anion Gap 4 mmol/L BUN 30 H (7-17) mg/dL Creatinine 0.94 (0.52-1.04) mg/dL Est GFR (CKD-EPI)AfAm 68 (>60 ml/min/1.73 sqM) Est GFR (CKD-EPI)NonAf 59 (>60 ml/min/1.73 sqM) Glucose 74 (74-99) mg/dL Calcium 9.3 (8.4-10.2) mg/dL Magnesium 2.3 (1.6-2.3) mg/dL Total Bilirubin 0.6 (0.2-1.3) mg/dL AST 46 H (14-36) U/L ALT 44 H (4-34) U/L Alkaline Phosphatase 66 (38-126) U/L Troponin I (0.000-0.034) ng/mL NT-Pro-B Natriuret Pep 138 pg/mL Total Protein 5.9 L (6.3-8.2) g/dL Albumin 3.8 (3.5-5.0) g/dL 09/21/23 Range/Units 14:58 WBC (3.8-10.6) k/uL RBC (3.80-5.40) m/uL Hgb (11.4-16.0) gm/dL Hct (34.0-46.0) % MCV (80.0-100.0) fL MCH (25.0-35.0) pg MCHC (31.0-37.0) g/dL RDW (11.5-15.5) % Plt Count (150-450) k/uL MPV Neutrophils % % Lymphocytes % % Monocytes % % Eosinophils % % Basophils % % Neutrophils # (1.3-7.7) k/uL Lymphocytes # (1.0-4.8) k/uL Monocytes # (0-1.0) k/uL Eosinophils # (0-0.7) k/uL Basophils # (0-0.2) k/uL PT (10.0-12.5) sec INR (<1.2) APTT (22.0-30.0) sec Sodium (137-145) mmol/L Potassium (3.5-5.1) mmol/L Chloride (98-107) mmol/L Carbon Dioxide (22-30) mmol/L Anion Gap mmol/L BUN (7-17) mg/dL Creatinine (0.52-1.04) mg/dL Est GFR (CKD-EPI)AfAm (>60 ml/min/1.73 sqM) Est GFR (CKD-EPI)NonAf (>60 ml/min/1.73 sqM) Glucose (74-99) mg/dL Calcium (8.4-10.2) mg/dL Magnesium (1.6-2.3) mg/dL Total Bilirubin (0.2-1.3) mg/dL AST (14-36) U/L ALT (4-34) U/L Alkaline Phosphatase (38-126) U/L Troponin I <0.012 (0.000-0.034) ng/mL NT-Pro-B Natriuret Pep pg/mL Total Protein (6.3-8.2) g/dL Albumin (3.5-5.0) g/dL Disposition Clinical Impression: Chest pain Disposition: ADMITTED IP TO THIS [facility] Referrals: Teodoro Arrington MD [Primary Care Provider] - 1-2 days Time of Disposition: 17:12
[2023-09-21 15:05] LABS: Basophils # (A) 0.1 k/uL (0-0.2); Basophils % (A) 1 %; Eosinophils # (A) 0.1 k/uL (0-0.7); Eosinophils % (A) 2 %; HCT 44.6 % (34.0-46.0); HGB 14.2 gm/dL (11.4-16.0); Lymphocytes # (A) 1.4 k/uL (1.0-4.8); Lymphocytes % (A) 15 %; MCH 29.8 pg (25.0-35.0); MCHC 31.8 g/dL (31.0-37.0); MCV 93.7 fL (80.0-100.0); Mean Platelet Volume 7.6; Monocytes # (A) 0.6 k/uL (0-1.0); Monocytes % (A) 6 %; Neutrophils % (A) 75 %; Platelet Count 256 k/uL (150-450); RBC 4.76 m/uL (3.80-5.40); WBC 9.4 k/uL (3.8-10.6)
[2023-09-21 15:14] LABS: ALT 44 U/L (4-34); AST 46 U/L (14-36); African American GFR (CKD) 68 (>60 ml/min/1.73 sqM); Albumin 3.8 g/dL (3.5-5.0); Alkaline Phosphatase 66 U/L (38-126); Anion Gap 4 mmol/L; Blood Urea Nitrogen 30 mg/dL (7-17); Calcium 9.3 mg/dL (8.4-10.2); Carbon Dioxide 26 mmol/L (22-30); Chloride 108 mmol/L (98-107); Glucose 74 mg/dL (74-99); INR 0.9 (<1.2); Magnesium 2.3 mg/dL (1.6-2.3); Non-African American GFR(CKD) 59 (>60 ml/min/1.73 sqM); Partial Thromboplastin Time 22.5 sec (22.0-30.0); Potassium 3.9 mmol/L (3.5-5.1); Prothrombin Time 9.8 sec (10.0-12.5); Sodium 138 mmol/L (137-145); Total Bilirubin 0.6 mg/dL (0.2-1.3); Total Protein 5.9 g/dL (6.3-8.2)
[2023-09-21] MEDS: ASPIRIN 81 MG PO STA (15:15)
[2023-09-21] MEDS: NITROGLYCERIN OINT 1 INCH/GM PACKET TOPICAL STA (15:16)
[2023-09-21 15:23] LABS: NT-Pro-B-Type Natriuretic Pept 138 pg/mL
--- NOTE | 2023-09-21 15:57 | XR ---
EXAMINATION TYPE: XR chest 2V DATE OF EXAM: 09/21/2023 3:16 PM CLINICAL INDICATION:Female, 78 years old with history of Chest Pain; COMPARISON: Chest radiographs from 07/28/2023. TECHNIQUE: XR chest 2V Frontal view of the chest. FINDINGS: Lungs/Pleura: There is flattening of the diaphragm with increased lucency of the lungs. No evidence o f pneumothorax, pleural effusion or focal consolidation. Pulmonary vascularity: Unremarkable. Heart/mediastinum: Cardiomediastinal silhouette is unremarkable. Musculoskeletal: No acute osseous pathology. IMPRESSION: 1. No acute cardiopulmonary disease process. 2. COPD changes.
[2023-09-21] MEDS ORDERED: NITROGLYCERIN SL TABS 0.4 MG TAB SUBLINGUAL PRN (17:12)
[2023-09-21] MEDS: NITROGLYCERIN OINT 1 INCH/GM PACKET TOPICAL SCH (19:52)
[2023-09-21] MEDS: SYMBICORT 80-4.5 MCG INHALER INHALATION SCH (20:25)
[2023-09-21] MEDS: IPRATROPIUM 0.5 MG/2.5 ML NEBU INHALATION SCH (20:25)
[2023-09-21 20:29] VITALS: RESP 16
[2023-09-21] MEDS: LORATADINE 10 MG TAB PO SCH (20:36)
[2023-09-21] MEDS: ATORVASTATIN 20 MG TAB PO SCH (20:36)
[2023-09-21] MEDS: MELATONIN 5 MG TABLET PO SCH (20:37)
[2023-09-21] MEDS: CALCIUM CARBONATE 500 MG CHEWABLE PO SCH (20:37)
[2023-09-21] MEDS: MONTELUKAST 10 MG TAB PO SCH (20:37)
[2023-09-21] MEDS: PANTOPRAZOLE 40 MG TABLET PO SCH (20:37)
[2023-09-21] MEDS: VENLAFAXINE HCL ER 75 MG CAP PO SCH (21:01)
[2023-09-21] MEDS: PRAMIPEXOLE 0.125 MG TAB PO SCH (21:01)
[2023-09-21] MEDS: PILOCARPINE 5 MG TAB PO SCH (21:02)
[2023-09-22 07:14] VITALS: BP 145/82; TEMP 97.9
[2023-09-22] MEDS: MULTIVITAMINS, THERA 1 EACH TAB PO SCH (08:46)
[2023-09-22] MEDS: ASPIRIN 81 MG PO SCH (08:47)
[2023-09-22] MEDS ORDERED: NON FORMULARY DRUG (Vitamin B Complex [Vitamin B Complex] 1 EACH Capsule) PO SCH (09:00)
[2023-09-22] MEDS ORDERED: ASPIRIN 325 MG TAB PO SCH (09:00)
--- NOTE | 2023-09-22 09:21 | P.CRDCN ---
History of Present Illness History of present illness: HISTORY OF PRESENT ILLNESS: This is a 78-year-old female with a past medical history significant for hyperlipidemia, COPD, GERD, and former nicotine dependence. Patient does not follow with a last cleaner. We have been asked to see the patient in consultation for chest pain. Patient examined at the bedside. Patient states yesterday she was at a picnic and was sitting outside when she began to have discomfort. She states the pain was in her chest but mostly in her left arm. She states that she is always read that pain in the left arm could be significant for heart problems which concerned her so she came to the emergency room for further evaluation. She states the pain lasted for approximately 20 minutes and resolved on its own. She denies any chest pain or pressure at the time of examination. Vital signs are stable. DIAGNOSTICS: - EKG reveals sinus mechanism with no signs of acute ischemia. - Chest xray negative for acute process. COPD changes. - Laboratory data: WBC 9.4. Hemoglobin 14.2. Platelet count 256. Sodium 138. Potassium 3.9. BUN 30. Creatinine 0.94. Troponin negative x 3. proBNP 138. - Current home cardiac medications include rosuvastatin 10 mg at night REVIEW OF SYSTEMS: At the time of my exam: CONSTITUTIONAL: Denies fever or chills. HEENT: Denies blurred vision, vision changes, or eye pain. Denies hemoptysis CARDIOVASCULAR: Denies chest pain. Denies orthopnea. Denies PND. Denies palpitations RESPIRATORY: Denies shortness of breath. GASTROINTESTINAL: Denies abdominal pain. Denies nausea or vomiting. HEMATOLOGIC: Denies bleeding disorders. GENITOURINARY: Denies any blood in urine. SKIN: Denies pruitis. Denies rash. PHYSICAL EXAM: VITAL SIGNS: Reviewed. GENERAL: Well-developed in no acute distress. HEENT: Head is normocephalic. Pupils are equal, round. Sclerae anicteric. Mucous membranes of the mouth are moist. Neck supple. No JVD or thyromegaly LUNGS: Respirations even and unlabored. Lungs essentially clear to auscultation bilaterally. HEART: Regular rate and rhythm. S1 and S2 heard. Systolic murmur noted. ABDOMEN: Soft. Nondistended. Nontender. EXTREMITIES: Normal range of motion. No clubbing or cyanosis. Peripheral pulses intact. No lower extremity edema NEUROLOGIC: Awake and alert. Oriented x 3. ASSESSMENT: Chest pain Hyperlipidemia History of COPD Former nicotine dependence, patient stopped smoking in the History of alcohol abuse, sober for 40 years PLAN: An acute coronary but has been ruled out Obtain 2D echo to assess cardiac structure and function Resume home cardiac medications Patient to undergo stress echocardiogram today If negative, she may be discharged home from a cardiac standpoint Nurse practitioner note has been reviewed by physician. Signing provider agrees with the documented findings, assessment, and plan of care documented by PLASTER DIE MAKER as a scribe. Past Medical History Past Medical History: Asthma, Cancer, GERD/Reflux, Hyperlipidemia, Pneumonia Additional Past Medical History / Comment(s): Hx skin cancer, hx Sheldon Palsy, "mild varicose veins." Shoghren's - dry mouth and eyes. History of Any Multi-Drug Resistant Organisms: None Reported Past Surgical History: Hysterectomy, Orthopedic Surgery Additional Past Surgical History / Comment(s): Bilateral cataracts removed, right knee arthroscopy, Mika fundoplication. goniotomy rt eye Past Anesthesia/Blood Transfusion Reactions: Motion Sickness Past Psychological History: Depression Smoking Status: Former smoker Past Alcohol Use History: None Reported Additional Past Alcohol Use History / Comment(s): Smoked for 25 years, 1-2 packs per day and quit in 1991. Hx of alcohol abuse, has been sober for 40 years. Past Drug Use History: None Reported - Past Family History Sister(s) Family Medical History: Cancer Additional Family Medical History / Comment(s): Breast cancer. Medications and Allergies Home Medications Medication Instructions Recorded Confirmed Type Pilocarpine [Salagen] 5 mg PO HS 09/02/15 09/21/23 History Melatonin [Melatonin Dissolving 10 mg PO HS 07/24/20 09/21/23 History Tablet] Montelukast [Singulair] 10 mg PO HS 07/24/20 09/21/23 History Pantoprazole [Protonix] 40 mg PO HS 07/24/20 09/21/23 History Venlafaxine HCl [Effexor XR] 75 mg PO HS 12/17/22 09/21/23 History Calcium Carbonate [Calcium] 1,200 mg PO HS 09/21/23 09/21/23 History Cetirizine HCl [Zyrtec] 10 mg PO HS 09/21/23 09/21/23 History Fluticasone/Umeclidin/Vilanter 1 puff INHALATION RT-HS 09/21/23 09/21/23 History [Trelegy Ellipta 200-62.5-25] Multivitamin/Iron/Folic Acid 1 tab PO DAILY 09/21/23 09/21/23 History [Centrum Women Tablet] Pramipexole [Mirapex] 0.125 mg PO HS 09/21/23 09/21/23 History Rosuvastatin [Crestor] 10 mg PO HS 09/21/23 09/21/23 History Vitamin B Complex 1 cap PO DAILY 09/21/23 09/21/23 History Allergies Allergy/AdvReac Type Severity Reaction Status Date / Time No Known Allergies Allergy Verified 09/21/23 17:16 Physical Exam Vitals: Vital Signs Temp Pulse Pulse Pulse Resp BP BP 09/22/23 07:00 97.9 F 70 16 145/82 09/22/23 02:00 98 F 76 16 138/74 09/21/23 20:35 72 16 09/21/23 20:26 72 16 09/21/23 20:00 98.1 F 80 16 135/75 09/21/23 18:22 97.8 F 78 18 149/80 09/21/23 17:49 79 18 130/70 09/21/23 15:31 84 16 135/87 09/21/23 15:02 84 09/21/23 14:27 98.7 F 84 18 136/83 Pulse Ox 09/22/23 07:00 93 L 09/22/23 02:00 94 L 09/21/23 20:35 09/21/23 20:26 09/21/23 20:00 92 L 09/21/23 18:22 98 09/21/23 17:49 97 09/21/23 15:31 98 09/21/23 15:02 09/21/23 14:27 98 Intake and Output 09/21/23 09/22/23 09/22/23 22:59 06:59 14:59 Intake Total 118 Balance 118 Intake: Oral 118 Other: # Voids 2 2 Weight 68.946 kg Results 09/21/23 14:58 09/21/23 14:58 Cardiac Enzymes 09/21/23 09/21/23 09/21/23 Range/Units 14:58 14:58 17:39 AST 46 H (14-36) U/L Troponin I <0.012 <0.012 (0.000-0.034) ng/mL 09/21/23 Range/Units 20:33 AST (14-36) U/L Troponin I <0.012 (0.000-0.034) ng/mL Coagulation 09/21/23 Range/Units 14:58 PT 9.8 L (10.0-12.5) sec APTT 22.5 (22.0-30.0) sec CBC 09/21/23 Range/Units 14:58 WBC 9.4 (3.8-10.6) k/uL RBC 4.76 (3.80-5.40) m/uL Hgb 14.2 (11.4-16.0) gm/dL Hct 44.6 (34.0-46.0) % Plt Count 256 (150-450) k/uL Comprehensive Metabolic Panel 09/21/23 Range/Units 14:58 Sodium 138 (137-145) mmol/L Potassium 3.9 (3.5-5.1) mmol/L Chloride 108 H (98-107) mmol/L Carbon Dioxide 26 (22-30) mmol/L BUN 30 H (7-17) mg/dL Creatinine 0.94 (0.52-1.04) mg/dL Glucose 74 (74-99) mg/dL Calcium 9.3 (8.4-10.2) mg/dL AST 46 H (14-36) U/L ALT 44 H (4-34) U/L Alkaline Phosphatase 66 (38-126) U/L Total Protein 5.9 L (6.3-8.2) g/dL Albumin 3.8 (3.5-5.0) g/dL Current Medications Generic Name Dose Route Start Last Admin Trade Name Freq PRN Reason Stop Dose Admin Aspirin 325 mg 09/22/23 09:00 Aspirin 325 Mg Tab PO DAILY ITALIA Atorvastatin Calcium 20 mg 09/21/23 21:00 09/21/23 20:36 Atorvastatin 20 Mg Tab PO 20 mg HS ITALIA Administration Budesonide/Formoterol Fumarate 2 puff 09/21/23 20:00 09/21/23 20:25 Symbicort 80-4.5 Mcg Inhaler INHALATION 2 puff RT-BID ITALIA Administration Calcium Carbonate/Glycine 1,000 mg 09/21/23 21:00 09/21/23 20:37 Calcium Carbonate 500 Mg Chewable PO 1,000 mg HS ITALIA Administration Ipratropium Davenport 0.5 mg 09/21/23 20:00 09/21/23 20:25 Ipratropium 0.5 Mg/2.5 Ml Nebu INHALATION 0.5 mg RT-QID ITALIA Administration Loratadine 10 mg 09/21/23 21:00 09/21/23 20:36 Loratadine 10 Mg Tab PO 10 mg HS ITALIA Administration Melatonin 10 mg 09/21/23 21:00 09/21/23 20:37 Melatonin 5 Mg Tablet PO 10 mg HS ITALIA Administration Montelukast Sodium 10 mg 09/21/23 21:00 09/21/23 20:37 Montelukast 10 Mg Tab PO 10 mg HS ITALIA Administration Multivitamins 1 each 09/22/23 09:00 Multivitamins, Thera 1 Each Tab PO DAILY ITALIA Nitroglycerin 0.4 mg 09/21/23 17:12 Nitroglycerin Sl Tabs 0.4 Mg Tab SUBLINGUAL Q5M PRN Chest Pain Nitroglycerin 1 inch 09/21/23 18:00 09/22/23 05:26 Nitroglycerin Oint 1 Inch/Gm Packet TOPICAL Not Given Q6HR ITALIA Pantoprazole Sodium 40 mg 09/21/23 21:00 09/21/23 20:37 Pantoprazole 40 Mg Tablet PO 40 mg HS ITALIA Administration Pilocarpine HCl 5 mg 09/21/23 21:00 09/21/23 21:02 Pilocarpine 5 Mg Tab PO 5 mg HS ITALIA Administration Pramipexole Dihydrochloride 0.125 mg 09/21/23 21:00 09/21/23 21:01 Pramipexole 0.125 Mg Tab PO 0.125 mg HS ITALIA Administration Venlafaxine HCl 75 mg 09/21/23 21:00 09/21/23 21:01 Venlafaxine Hcl Er 75 Mg Cap PO 75 mg HS ITALIA Administration Intake and Output 09/21/23 09/22/23 09/22/23 22:59 06:59 14:59 Intake Total 118 Balance 118 Intake: Oral 118 Other: # Voids 2 2 Weight 68.946 kg 09/21/23 14:58 09/21/23 14:58
[2023-09-22 10:29] LABS: Chol/HDL Ratio 1.81 Ratio; LDL Cholesterol,Calculated 51.5 mg/dL (0.0-131.0); VLDL Calculation 18.98 mg/dL (5.00-40.00)
--- NOTE | 2023-09-22 10:48 | CA ---
Stress Echo Report Angie De La Cruz Age: 78 Gender: F : 1945 Exam Date: 09/22/2023 09:51 Exam Location: [facility] Ht (in): 65 Wt (lb): 152 Ordering Physician: Ely Medina Referring Physician: [id number] Brush Polisher: SUSHILA, Technologist Procedure CPT: Indication: CP ICD-9 Codes: Rhythm: Patient History: Chest pain Cardiac Medications: Medications in past 24 hours: Contrast: Stress Results Protocol: Carson Total dose(mL): Exercise Duration (min:sec): 5:[address] Depression (mm): 0 Angina Score: 0 Roldan Score: 5.02 METS: 7.0 Resting HR: 74 Resting BP: 144 / 97 Peak HR: 140 Peak BP: 184 / 75 Max Predicted HR: 143 98 % Max Predicted HR Target HR: 122 Double Product: [id number] Stress Summary: The patient's target heart rate was achieved BP Response: Reason for Termination: Reached target heart rate or work-load Cardiac Symptoms: No symptoms ECG Analysis Resting ECG: Normal sinus rhythm, normal ECG Stress ECG: No abnormal ST/T wave changes with exercise Arrhythmia: None Echo Analysis Resting Echo: Normal resting echocardiogram. Peak Echo Analysis: Normal wall thickening and motion MEASUREMENTS (Male/Female) Normal Values CONCLUSIONS Patient falls into low-risk group (DTS >= +5). This associates the patient with an annual CV mortality <= 0.5%. No ECG evidence of ischemia with exercise. Normal treadmill stress echocardiogram. Dr. [place] MD (Electronically Signed) Final Date: 22 September 2023 10:47
--- NOTE | 2023-09-22 12:31 | CA ---
Transthoracic Echo Report Name: Angie De La Cruz Age: 78 Gender: F : 1945 Exam Date: 09/22/2023 10:16 Exam Location: [facility] Ht (in): 65 Wt (lb): 152 Ordering Physician: Ely Medina Attending/Referring Phys: [id number], Adam Admissions Dean Cindy Avila RDCS Procedure CPT: Indications: CP, LV function Cardiac Hx: Technical Quality: Fair Contrast 1: Total Dose (mL): Contrast 2: Total Dose (mL): MEASUREMENTS (Male / Female) Normal Values 2D ECHO LV Diastolic Diameter PLAX 4.1 cm 4.2 - 5.9 / 3.9 - 5.3 cm LV Systolic Diameter PLAX 2.4 cm IVS Diastolic Thickness 1.3 cm 0.6 - 1.0 / 0.6 - 0.9 cm LVPW Diastolic Thickness 0.9 cm 0.6 - 1.0 / 0.6 - 0.9 cm LV Relative Wall Thickness 0.5 LVOT Diameter 2.0 cm LV Diastolic Volume MOD BP 66.3 cm??? 67 - 155 / 56 - 104 cm??? LV Systolic Volume MOD BP 20.0 cm??? 22 - 58 / 19 - 49 cm??? LV Ejection Fraction MOD BP 69.9 % >= 55 % LV Cardiac Index MOD BP 2018.1 cm???/min???m??? LV Diastolic Volume MOD 4C 71.6 cm??? LV Systolic Volume MOD 4C 17.9 cm??? LV Ejection Fraction MOD 4C 75.0 % LV Cardiac Index MOD 4C 2339.7 cm???/min???m??? LV Diastolic Length 4C 7.4 cm LV Systolic Length 4C 6.1 cm LV Diastolic Volume MOD 2C 61.0 cm??? LV Systolic Volume MOD 2C 21.7 cm??? LV Ejection Fraction MOD 2C 64.5 % LV Cardiac Index MOD 2C 1713.2 cm???/min???m??? LV Diastolic Length 2C 7.4 cm LV Systolic Length 2C 6.3 cm LA Volume 47.0 cm??? 18 - 58 / 22 - 52 cm??? LA Volume Index 26.3 cm???/m??? 16 - 28 cm???/m??? Ascending Aorta Diameter 3.1 cm DOPPLER AV Peak Velocity 180.5 cm/s AV Peak Gradient 13.0 mmHg AV Mean Velocity 126.7 cm/s AV Mean Gradient 7.3 mmHg AV Velocity Time Integral 37.6 cm LVOT Peak Velocity 157.5 cm/s LVOT Peak Gradient 9.9 mmHg LVOT Velocity Time Integral 31.1 cm LVOT Stroke Volume 97.1 cm??? LVOT Stroke Volume Index 55.2 ml/m??? LVOT Cardiac Index 4232.6 cm???/min???m??? AV Area Cont Eq vti 2.6 cm??? AV Area Cont Eq pk 2.7 cm??? MV Area PHT 3.2 cm??? Mitral E Point Velocity 46.2 cm/s Mitral A Point Velocity 79.3 cm/s Mitral E to A Ratio 0.6 MV Deceleration Time 238.9 ms TR Peak Velocity 253.2 cm/s TR Peak Gradient 25.7 mmHg Right Atrial Pressure 5.0 mmHg Pulmonary Artery Systolic Pressu 30.7 mmHg Right Ventricular Systolic Press 30.7 mmHg PV Peak Velocity 103.7 cm/s PV Peak Gradient 4.3 mmHg FINDINGS Left Ventricle Left ventricular ejection fraction is estimated at 60-65 %. Mildly increased septal wall thickness. Left ventricular cavity size normal. No obvious regional wall motion abnormalities. Sigmoid septum. Right Ventricle Normal right ventricular size and function. Right ventricular systolic pressure within normal limits. Right Atrium Normal right atrial size. Echogenic area in the RA, probable Eustachian valve Left Atrium Normal left atrial size. Mitral Valve Structurally normal mitral valve. No evidence for mitral valve prolapse. No mitral stenosis. Mild mitral regurgitation. Aortic Valve Trileaflet aortic valve. No aortic valve stenosis or regurgitation. Tricuspid Valve Structurally normal tricuspid valve. No tricuspid stenosis. [id number] tricuspid regurgitation. Pulmonic Valve Structurally normal pulmonic valve. No pulmonic stenosis. No pulmonic regurgitation. Pericardium No pericardial effusion. Aorta Normal size aortic root and proximal ascending aorta. CONCLUSIONS 1. Normal left ventricle size and systolic function 2. Mild to moderate tricuspid regurgitation with mild mitral regurgitation and no evidence of pulmonary hypertension 3. Echogenic area in the right atrium probably her presenting a eustachian valve, unclear etiology Previewed by: Dr. [place] MD (Electronically Signed) Final Date: 22 September 2023 12:30
[2023-09-22 12:51] VITALS: PULSE 80
--- NOTE | 2023-09-26 17:29 | P.HPIM ---
History of Present Illness Please consider this note as combined H&P and discharge summary Diagnoses: Chest pain, musculoskeletal results, cardiac and pulmonary causes ruled out resolved. Hypertension Hyperlipidemia History of asthma GERD Hospital course: Patient is a pleasant 78 years old female with multiple medical problems including asthma GERD, hypertension, hyperlipidemia Patient presents because of chest pain Patient evaluated by meat clerk and she underwent treadmill stress echo which came back negative for reversible ischemia Patient denies any other symptoms and her chest pain resolved. Patient is agreeable to go home today. Patient was cleared for discharge by meat clerk today Problems and management plan were discussed with the patient and he verbalized understanding and acceptance Patient was found stable and can be discharged home in guarded prognosis however he needs follow-up as an outpatient. Patient was instructed to follow up with PCP Dr. Miguel within one week and patient agrees Patient was instructed to follow-up with meat clerk Dr. Burton in 1 week after discharge and she agrees Physical exam Gen: patient is a AAOx3, no distress CVS: S1-S2, RRR, no murmur Lungs: B/L CTA, no wheezing Abdomen: soft, no distention, no tenderness, positive bowel sounds Extremity: no leg edema or induration Time spent more than 35 minutes Review of Systems Home with review of systems CONSTITUTIONAL: No fever, no malaise, no fatigue. HEENT: No recent visual problems or hearing problems. Denied any sore throat. CARDIOVASCULAR: No orthopnea, PND, no palpitations, no syncope. PULMONARY: No shortness of breath, no cough, no hemoptysis. GASTROINTESTINAL: No diarrhea, no nausea, no vomiting, no abdominal pain. Normoactive bowel sounds. NEUROLOGICAL: No headaches, no weakness, no numbness. HEMATOLOGICAL: Denies any bleeding or petechiae. GENITOURINARY: Denies any burning micturition, frequency, or urgency. MUSCULOSKELETAL/RHEUMATOLOGICAL: Denies any joint pain, swelling, or any muscle pain. ENDOCRINE: Denies any polyuria or polydipsia. Past Medical History Past Medical History: Asthma, Cancer, GERD/Reflux, Hyperlipidemia, Pneumonia Additional Past Medical History / Comment(s): Hx skin cancer, hx [place] Palsy, "mild varicose veins." Shoghren's - dry mouth and eyes. History of Any Multi-Drug Resistant Organisms: None Reported Past Surgical History: Hysterectomy, Orthopedic Surgery Additional Past Surgical History / Comment(s): Bilateral cataracts removed, right knee arthroscopy, Mika fundoplication. goniotomy rt eye Past Anesthesia/Blood Transfusion Reactions: Motion Sickness Past Psychological History: Depression Smoking Status: Former smoker Past Alcohol Use History: None Reported Additional Past Alcohol Use History / Comment(s): Smoked for 25 years, 1-2 packs per day and quit in 1991. Hx of alcohol abuse, has been sober for 40 years. Past Drug Use History: None Reported - Past Family History Sister(s) Family Medical History: Cancer Additional Family Medical History / Comment(s): Breast cancer. Medications and Allergies Home Medications Medication Instructions Recorded Confirmed Type Pilocarpine [Salagen] 5 mg PO HS 09/02/15 09/21/23 History Melatonin [Melatonin Dissolving 10 mg PO HS 07/24/20 09/21/23 History Tablet] Montelukast [Singulair] 10 mg PO HS 07/24/20 09/21/23 History Pantoprazole [Protonix] 40 mg PO HS 07/24/20 09/21/23 History Venlafaxine HCl [Effexor XR] 75 mg PO HS 12/17/22 09/21/23 History Calcium Carbonate [Calcium] 1,200 mg PO HS 09/21/23 09/21/23 History Cetirizine HCl [Zyrtec] 10 mg PO HS 09/21/23 09/21/23 History Fluticasone/Umeclidin/Vilanter 1 puff INHALATION RT-HS 09/21/23 09/21/23 History [Trelegy Ellipta 200-62.5-25] Multivitamin/Iron/Folic Acid 1 tab PO DAILY 09/21/23 09/21/23 History [Centrum Women Tablet] Pramipexole [Mirapex] 0.125 mg PO HS 09/21/23 09/21/23 History Rosuvastatin [Crestor] 10 mg PO HS 09/21/23 09/21/23 History Vitamin B Complex 1 cap PO DAILY 09/21/23 09/21/23 History Allergies Allergy/AdvReac Type Severity Reaction Status Date / Time No Known Allergies Allergy Verified 09/21/23 17:16 Physical Exam Vitals: Vital Signs Temp Pulse Pulse Pulse Resp BP BP 09/22/23 12:49 80 09/22/23 12:43 09/22/23 12:40 76 09/22/23 07:00 97.9 F 70 16 145/82 09/22/23 02:00 98 F 76 16 138/74 09/21/23 20:35 72 16 09/21/23 20:26 72 16 09/21/23 20:00 98.1 F 80 16 135/75 09/21/23 18:22 97.8 F 78 18 149/80 09/21/23 17:49 79 18 130/70 09/21/23 15:31 84 16 135/87 09/21/23 15:02 84 09/21/23 14:27 98.7 F 84 18 136/83 Pulse Ox 09/22/23 12:49 09/22/23 12:43 97 09/22/23 12:40 09/22/23 07:00 93 L 09/22/23 02:00 94 L 09/21/23 20:35 09/21/23 20:26 09/21/23 20:00 92 L 09/21/23 18:22 98 09/21/23 17:49 97 09/21/23 15:31 98 09/21/23 15:02 09/21/23 14:27 98 Intake and Output 09/21/23 09/22/23 09/22/23 22:59 06:59 14:59 Intake Total 118 Balance 118 Intake: Oral 118 Other: # Voids 2 2 Weight 68.946 kg GENERAL: The patient is alert and oriented x3, not in any acute distress. Well developed, well nourished. HEENT: Pupils are round and equally reacting to light. EOMI. No scleral icterus. No conjunctival pallor. Normocephalic, atraumatic. No pharyngeal erythema. No thyromegaly. CARDIOVASCULAR: S1 and S2 present. No murmurs, rubs, or gallops. PULMONARY: Chest is clear to auscultation, no wheezing , no crackles. ABDOMEN: Soft, nontender, nondistended, normoactive bowel sounds. No palpable organomegaly. MUSCULOSKELETAL: No joint swelling or deformity. EXTREMITIES: No cyanosis, clubbing, or pedal edema. NEUROLOGICAL: Gross neurological examination did not reveal any focal deficits. SKIN: No rashes. no petechiae. Results CBC & Chem 7: 09/21/23 14:58 09/21/23 14:58 Labs: Abnormal Lab Results - Last 24 Hours (Table) 09/21/23 09/21/23 09/21/23 Range/Units 14:58 14:58 14:58 PT 9.8 L (10.0-12.5) sec Chloride 108 H (98-107) mmol/L BUN 30 H (7-17) mg/dL AST 46 H (14-36) U/L ALT 44 H (4-34) U/L Total Protein 5.9 L (6.3-8.2) g/dL HDL Cholesterol 87.50 H (40.00-60.00) mg/dL Thrombosis Risk Factor Assmnt - Choose All That Apply Any of the Below Risk Factors Present?: No Other Risk Factors: Yes Each Risk Factor Represents 3 Points: Age 75 years or older Thrombosis Risk Factor Assessment Total Risk Factor Score: 3 Thrombosis Risk Factor Assessment Level: Moderate Risk
== END 2023-09-22 15:15 | disposition home or self-care (01) ==
LOC: EC 14:13 → 6NMEDSUR 17:12
PROVIDERS: ADMIT Internal Medicine; ATTEND Internal Medicine
DX: R07.9 Chest pain, unspecified (principal); E78.00 Pure hypercholesterolemia, unspecified; K21.9 Gastro-esophageal reflux disease without esophagitis; F32.A Depression, unspecified; J44.9 Chronic obstructive pulmonary disease, unspecified; I10 Essential (primary) hypertension; Z85.828 Personal history of other malignant neoplasm of skin; Z87.891 Personal history of nicotine dependence; Z79.899 Other long term (current) drug therapy
CPT/HCPCS: 99285; 36415; 94640 ×2; 94760; 93005; 93306; 93351; 83880; 80061; 80053; 83735; 84484; 85025; 85610; 85730; 71046; G0378 ×2

== ENCOUNTER → 2023-12-13 | Outpatient (CLI) | payer MEDICARE ==
[2023-12-13 13:54] LABS: African American GFR (CKD) 74 (>60 ml/min/1.73 sqM); Blood Urea Nitrogen 19 mg/dL (7-17); Non-African American GFR(CKD) 64 (>60 ml/min/1.73 sqM)
--- NOTE | 2023-12-13 14:45 | CT ---
EXAMINATION TYPE: CT chest w con CT DLP: 469 mGycm, Automated exposure control for dose reduction was used. DATE OF EXAM: 12/13/2023 2:32 PM COMPARISON: CT chest 03/30/2019, chest radiograph 09/21/2023. CLINICAL INDICATION:Female, 78 years old with history of R05.9 COUGH; PHH, persistent cough x5 months . hx of asthma and COPD TECHNIQUE: Multiple axial images were obtained through the chest following the administration of 100 cc of Isovue 300. . Coronal and sagittal reformats reviewed. FINDINGS: LUNGS/ PLEURA: No pleural effusion, pneumothorax, focal consolidation. Biapical pleural parenchymal s carring. Dependent bilateral lower lobe linear subsegmental atelectasis. Diffuse cylindrical bronchie ctasis. No architectural distortion. No honeycombing. No suspicious pulmonary nodule or mass AIRWAY: Patent and unremarkable.. HEART: Size within normal limits. No pericardial effusion. MEDIASTINUM: No evidence of adenopathy. VASCULATURE: No aortic aneurysm. There is a nonocclusive filling defect identified within right uppe r lobe segmental pulmonary artery (series 3, image 26). No pulmonary arterial dilatation. MUSCULOSKELETAL: No acute osseous abnormalities. Dextrocurvature of the thoracolumbar spine. SOFT TISSUES/LYMPH NODES: Unremarkable. LOWER NECK: No significant findings. UPPER ABDOMEN: Scattered hypodense cysts with largest measuring up to 3.0 cm. Postsurgical changes at the GE junction from likely hernia repair. IMPRESSION: 1. Acute nonocclusive right upper lobe subsegmental pulmonary embolism. No evidence for right heart s train. 2. Diffuse cylindrical bronchiectasis. A [place] critical message alert has been initiated for Teodoro Arrington MD via the [employer] System on 12/13/2023 2:42 PM. This message alert has been sent to Teodoro Arrington MD via t preferences provided by the clinician for the receipt of Radiology Critical Findings. Message ID [id number]. [facility], , 12/13/2023 2:42 PM
== END | disposition home or self-care (01) ==
LOC: RADCTMAIN 13:17
PROVIDERS: ATTEND Internal Medicine Geriatric Medicine
DX: R05.9 Cough, unspecified
CPT/HCPCS: 36415; 71260; 82565; 84520

== ENCOUNTER → 2023-12-20 | Outpatient (CLI) | payer MEDICARE ==
--- NOTE | 2023-12-20 16:27 | US ---
EXAMINATION TYPE: US venous doppler duplex LE BI DATE OF EXAM: 12/20/2023 2:32 PM COMPARISON: NONE CLINICAL INDICATION: Female, 78 years old with history of I82.409 DVT OF LOWER EXTREMITIES; Hx of PE on blood thinners. SIDE PERFORMED: Bilateral TECHNIQUE: The lower extremity deep venous system is examined utilizing real time linear array sonog gary with graded compression, color doppler sonography, and spectral doppler. VESSELS IMAGED: Common Femoral Vein Deep Femoral Vein Greater Saphenous Vein * Femoral Vein Popliteal Vein Small Saphenous Vein * Proximal Calf Veins (* superficial vessels) Right Leg: Negative for DVT Left Leg: Negative for DVT IMPRESSION: Grayscale, color doppler, spectral doppler imaging performed of the deep veins of the lo wer extremities. There is normal flow, compressibility, vascular waveforms. [facility], , 12/20/2023 4:24 PM
== END | disposition home or self-care (01) ==
LOC: RADUSWWP 14:08
PROVIDERS: ATTEND Internal Medicine Geriatric Medicine
DX: I82.409 Acute embolism and thrombosis of unspecified deep veins of unspecified lower extremity (principal)
CPT/HCPCS: 93970

== ENCOUNTER 2024-01-28 22:06 | Emergency (ER) | payer MEDICARE ==
[2024-01-28 22:18] VITALS: RESP 16
[2024-01-28] MEDS: ACETAMINOPHEN TAB 325 MG TAB PO STA (22:44)
--- NOTE | 2024-01-28 22:54 | ED ---
URI HPI - General Chief Complaint: Upper Respiratory Infection Stated Complaint: nausea, dizzy Time Seen by Provider: 01/28/24 22:26 Source: patient, RN notes reviewed Mode of arrival: ambulatory Limitations: no limitations - History of Present Illness Initial Comments: 78-year-old female presenting to the ER chief complaint of sinus congestion x 1 day. Patient states suddenly she began to "not feel well" and states she feels as though she is coming down with the flu. States she feels hot and nauseous. She is concerned because she reports she had cosmetic facial injections 4 days ago and is concerned that they are infected. Denies redness or drainage from the area of injection. - Related Data Home Medications Medication Instructions Recorded Confirmed Pilocarpine [Salagen] 5 mg PO HS 09/02/15 09/21/23 Melatonin [Melatonin Dissolving 10 mg PO HS 07/24/20 09/21/23 Tablet] Montelukast [Singulair] 10 mg PO HS 07/24/20 09/21/23 Pantoprazole [Protonix] 40 mg PO HS 07/24/20 09/21/23 Venlafaxine HCl [Effexor XR] 75 mg PO HS 12/17/22 09/21/23 Calcium Carbonate [Calcium] 1,200 mg PO HS 09/21/23 09/21/23 Cetirizine HCl [Zyrtec] 10 mg PO HS 09/21/23 09/21/23 Fluticasone/Umeclidin/Vilanter 1 puff INHALATION RT-HS 09/21/23 09/21/23 [Trelegy Ellipta 200-62.5-25] Multivitamin/Iron/Folic Acid 1 tab PO DAILY 09/21/23 09/21/23 [Centrum Women Tablet] Pramipexole [Mirapex] 0.125 mg PO HS 09/21/23 09/21/23 Rosuvastatin [Crestor] 10 mg PO HS 09/21/23 09/21/23 Vitamin B Complex 1 cap PO DAILY 09/21/23 09/21/23 Allergies Allergy/AdvReac Type Severity Reaction Status Date / Time No Known Allergies Allergy Verified 01/28/24 22:16 Review of Systems ROS Statement: Those systems with pertinent positive or pertinent negative responses have been documented in the HPI. ROS Other: All systems not noted in ROS Statement are negative. Past Medical History Past Medical History: Asthma, Cancer, GERD/Reflux, Hyperlipidemia, Pneumonia Additional Past Medical History / Comment(s): Hx skin cancer, hx [place] Palsy, "mild varicose veins." Shoghren's - dry mouth and eyes. History of Any Multi-Drug Resistant Organisms: None Reported Past Surgical History: Hysterectomy, Orthopedic Surgery Additional Past Surgical History / Comment(s): Bilateral cataracts removed, right knee arthroscopy, Mika fundoplication. goniotomy rt eye Past Anesthesia/Blood Transfusion Reactions: Motion Sickness Past Psychological History: Depression Smoking Status: Former smoker Past Alcohol Use History: None Reported Past Drug Use History: None Reported - Past Family History Sister(s) Family Medical History: Cancer Additional Family Medical History / Comment(s): Breast cancer. General Exam Limitations: no limitations General appearance: alert, in no apparent distress Head exam: Present: atraumatic, normocephalic, normal inspection Eye exam: Present: normal appearance, PERRL, EOMI. Absent: scleral icterus, conjunctival injection, periorbital swelling Neck exam: Present: normal inspection. Absent: tenderness, meningismus, lymphadenopathy Respiratory exam: Present: normal lung sounds bilaterally. Absent: respiratory distress, wheezes, rales, rhonchi, stridor Cardiovascular Exam: Present: regular rate, normal rhythm, normal heart sounds. Absent: systolic murmur, diastolic murmur, rubs, gallop, clicks GI/Abdominal exam: Present: soft, normal bowel sounds. Absent: distended, tenderness, guarding, rebound, rigid Neurological exam: Present: alert, oriented X3 Psychiatric exam: Present: normal affect, normal mood Skin exam: Present: warm, dry, intact, normal color. Absent: rash Course Vital Signs 01/28/24 22:16 Temperature 97.4 F L Pulse Rate 72 Respiratory 16 Rate Blood Pressure 161/91 O2 Sat by Pulse 95 Oximetry Medical Decision Making - Medical Decision Making Was pt. sent in by a medical professional or institution (, [facility], [facility], urgent care, hospital, or senior care...) When possible be specific @ -No Did you speak to anyone other than the patient for history (EMS, parent, family, police, friend...)? What history was obtained from this source @ -No Did you review nursing and triage notes (agree or disagree)? Why? @ -I reviewed and agree with nursing and triage notes Were old charts reviewed (outside hosp., previous admission, EMS record, old EKG, old radiological studies, urgent care reports/EKG's, senior care records)? Report findings @ -No old charts were reviewed Differential Diagnosis (chest pain, altered mental status, abdominal pain women, abdominal pain men, vaginal bleeding, weakness, fever, dyspnea, syncope, headache, dizziness, GI bleed, back pain, seizure, CVA, palpatations, mental health, musculoskeletal)? @ -Viral URI, COVID, influenza, cellulitis EKG interpreted by me (3pts min.). @ -None X-rays interpreted by me (1pt min.). @ -None done CT interpreted by me (1pt min.). @ -None done U/S interpreted by me (1pt. min.). @ -None done What testing was considered but not performed or refused? (CT, X-rays, U/S, labs)? Why? @ -None What meds were considered but not given or refused? Why? @ -None Did you discuss the management of the patient with other professionals (professionals i.e. , PA, VEST BUSHELER, lab, RT, psych nurse, social worker delinquency prevention, clerical dentist assistant, teacher, founder chairman and chief creative officer, foster care case manager)? Give summary @ -No Was smoking cessation discussed for >3mins.? @ -No Was critical care preformed (if so, how long)? @ -No Were there social determinants of health that impacted care today? How? (Anastasiia elessness, low income, unemployed, alcoholism, drug addiction, transportation, low edu. Level, literacy, decrease access to med. care, [facility], rehab)? @ -No Was there de-escalation of care discussed even if they declined (Discuss DNR or withdrawal of care, Hospice)? DNR status @ -No What co-morbidities impacted this encounter? (DM, HTN, Smoking, COPD, CAD, Cancer, CVA, ARF, Chemo, Hep., AIDS, mental health diagnosis, sleep apnea, morbid obesity)? @ -None Was patient admitted / discharged? Hospital course, mention meds given and route, prescriptions, significant lab abnormalities, going to OR and other pertinent info. @ -Discharged. This is a 78-year-old female presenting with sinus congestion x 1 day. States she feels she is coming down with the flu, however her main concern is that she received cheek filler 4 days ago and wants to make sure it is not infected. Patient is afebrile, nontachycardic. No sign of bacterial infection on examination. Cepheid negative. Discussed there is no sign of bacterial infection upon examination today. Symptoms are likely due to viral upper respiratory infection. Advised to follow-up with PCP in 3 to 5 days if symptoms persist. Return precautions discussed and patient is agreeable to plan. Case was discussed with my ED attending Dr. Gomez. Patient discharged in stable condition. Undiagnosed new problem with uncertain prognosis? @ -No Drug Therapy requiring intensive monitoring for toxicity (Heparin, Nitro, Insulin, Cardizem)? @ -No Were any procedures done? @ -No Diagnosis/symptom? @ -Viral upper respiratory infection Acute, or Chronic, or Acute on Chronic? @ -Acute Uncomplicated (without systemic symptoms) or Complicated (systemic symptoms)? @ -Uncomplicated Side effects of treatment? @ -No Exacerbation, Progression, or Severe Exacerbation? @ -No Poses a threat to life or bodily function? How? (Chest pain, [place], [place], pneumonia, PE, COPD, DKA, ARF, appy, cholecystitis, CVA, Diverticulitis, Homicidal, Suicidal, threat to staff... and all critical care pts) @ -No - Lab Data Lab Results 01/28/24 Range/Units 22:43 Influenza Type A (PCR) Not Detected (Not Detectd) Influenza Type B (PCR) Not Detected (Not Detectd) RSV (PCR) Not Detected (Not Detectd) SARS-CoV-2 (PCR) Not Detected (Not Detectd) Disposition Clinical Impression: Viral upper respiratory infection Disposition: HOME SELF-CARE Condition: Stable Instructions (If sedation given, give patient instructions): Upper Respiratory Infection (ED) Additional Instructions: Take Tylenol or ibuprofen as needed for symptoms. Please return to the Emergenc y Department if symptoms worsen or any other concerns. Is patient prescribed a controlled substance at d/c from ED?: No Referrals: Teodoro Arrington MD [Primary Care Provider] - 1-2 days Time of Disposition: 23:36
[2024-01-28 23:43] VITALS: BP 156/89; PULSE 65; TEMP 97.5
== END 2024-01-28 23:41 | disposition home or self-care (01) ==
LOC: EC 22:06
DX: J06.9 Acute upper respiratory infection, unspecified (principal); B97.89 Other viral agents as the cause of diseases classified elsewhere; Z87.891 Personal history of nicotine dependence
CPT/HCPCS: 87636; 99283

== ENCOUNTER 2024-06-29 10:38 | Emergency (ER) | payer MEDICARE ==
[2024-06-29 10:52] VITALS: RESP 18
--- NOTE | 2024-06-29 11:13 | ED ---
General Adult HPI - General Chief complaint: Fall Stated complaint: Fall on thinners-head injury Time Seen by Provider: 06/29/24 10:40 Source: patient, RN notes reviewed, old records reviewed Mode of arrival: ambulatory Limitations: no limitations - History of Present Illness Initial comments: This is a 79-year-old female who is on Eliquis. Patient states she fell forward today and hit the door on her way down. Patient denies loss of consciousness. Patient denies dizziness. Patient states she has a little tenderness on her scalp. Patient denies neck pain patient denies any numbness weakness in her upper extremities. Patient denies any chest or back pain. Patient has any palpitations or shortness of breath. Patient denies any recent fever chills or cough. Patient has abdominal pain. Patient [place] any other issues except for a skin tear on the left forearm. - Related Data Home Medications Medication Instructions Recorded Confirmed Pilocarpine [Salagen] 5 mg PO HS 09/02/15 09/21/23 Melatonin [Melatonin Dissolving 10 mg PO HS 07/24/20 09/21/23 Tablet] Montelukast [Singulair] 10 mg PO HS 07/24/20 09/21/23 Pantoprazole [Protonix] 40 mg PO HS 07/24/20 09/21/23 Venlafaxine HCl [Effexor XR] 75 mg PO HS 12/17/22 09/21/23 Calcium Carbonate [Calcium] 1,200 mg PO HS 09/21/23 09/21/23 Cetirizine HCl [Zyrtec] 10 mg PO HS 09/21/23 09/21/23 Fluticasone/Umeclidin/Vilanter 1 puff INHALATION RT-HS 09/21/23 09/21/23 [Trelegy Ellipta 200-62.5-25] Multivitamin/Iron/Folic Acid 1 tab PO DAILY 09/21/23 09/21/23 [Centrum Women Tablet] Pramipexole [Mirapex] 0.125 mg PO HS 09/21/23 09/21/23 Rosuvastatin [Crestor] 10 mg PO HS 09/21/23 09/21/23 Vitamin B Complex 1 cap PO DAILY 09/21/23 09/21/23 Allergies Allergy/AdvReac Type Severity Reaction Status Date / Time No Known Allergies Allergy Verified 06/29/24 10:42 Review of Systems ROS Statement: Those systems with pertinent positive or pertinent negative responses have been documented in the HPI. ROS Other: All systems not noted in ROS Statement are negative. Past Medical History Past Medical History: Asthma, Cancer, GERD/Reflux, Hyperlipidemia, Pneumonia Additional Past Medical History / Comment(s): Hx skin cancer, hx [place] Palsy, "mild varicose veins." Shoghren's - dry mouth and eyes. History of Any Multi-Drug Resistant Organisms: None Reported Past Surgical History: Hysterectomy, Orthopedic Surgery Additional Past Surgical History / Comment(s): Bilateral cataracts removed, right knee arthroscopy, Mika fundoplication. goniotomy rt eye Past Anesthesia/Blood Transfusion Reactions: Motion Sickness Past Psychological History: Depression Smoking Status: Former smoker Past Alcohol Use History: None Reported Past Drug Use History: None Reported - Past Family History Sister(s) Family Medical History: Cancer Additional Family Medical History / Comment(s): Breast cancer. General Exam - General Exam Comments Initial Comments: GENERAL: Patient is well-developed and well-nourished. Patient is nontoxic and well- hydrated and is in mild distress. ENT: Neck is soft and supple. No significant lymphadenopathy is noted. Oropharynx is clear. Moist mucous membranes. Neck has full range of motion without eliciting any pain. EYES: The sclera were anicteric and conjunctiva were pink and moist. Extraocular movements were intact and pupils were equal round and reactive to light. Eyelids were unremarkable. PULMONARY: Unlabored respirations. Good breath sounds bilaterally. No audible rales rhonchi or wheezing was noted. CARDIOVASCULAR: There is a regular rate and rhythm without any murmurs gallops or rubs. ABDOMEN: Soft and nontender with normal bowel sounds. SKIN: Patient has a 4 cm diameter skin tear on the left forearm NEUROLOGIC: Patient is alert and oriented x3. Cranial nerves II through XII are grossly intact. Motor and sensory are also intact. Normal speech, volume and content. Symmetrical smile. MUSCULOSKELETAL: Normal extremities with adequate strength and full range of motion. No lower extremity swelling or edema. No calf tenderness. LYMPHATICS: No significant lymphadenopathy is noted PSYCHIATRIC: Normal psychiatric evaluation. Limitations: no limitations Course Vital Signs 06/29/24 10:39 Temperature 97.8 F Pulse Rate 74 Respiratory 18 Rate Blood Pressure 135/84 O2 Sat by Pulse 97 Oximetry Medical Decision Making - Medical Decision Making Was pt. sent in by a medical professional or institution (, MANNY, CYLINDER DIE MACHINE HELPER, urgent care, hospital, or custodial...) When possible be specific @ -No Did you speak to anyone other than the patient for history (EMS, parent, family, police, friend...)? What history was obtained from this source @ -No Did you review nursing and triage notes (agree or disagree)? Why? @ -I reviewed and agree with nursing and triage notes Were old charts reviewed (outside hosp., previous admission, EMS record, old EKG, old radiological studies, urgent care reports/EKG's, custodial records)? Report findings @ -No old charts were reviewed Differential Diagnosis? @ -Skull fracture, subdural, epidural, intraparenchymal, subarachnoid, cervical spine fracture, this is not an all-inclusive list EKG interpreted by me (3pts min.). @ -As above X-rays interpreted by me (1pt min.). @ -None done CT interpreted by me (1pt min.). @ -CT of the brain and C-spine showed no acute abnormality U/S interpreted by me (1pt. min.). @ -None done What testing was considered but not performed or refused? (CT, X-rays, U/S, labs)? Why? @ -None What meds were considered but not given or refused? Why? @ -None Did you discuss the management of the patient with other professionals (candida mehta i.e. MANNY [place], CYLINDER DIE MACHINE HELPER, lab, RT, psych nurse, hospital social worker, autocad designer, teacher, senior commercial loan officer, trimming caser)? Give summary @ -No Was smoking cessation discussed for >3mins.? @ -No Was critical care preformed (if so, how long)? @ -No Were there social determinants of health that impacted care today? How? (Homelessness, low income, unemployed, alcoholism, drug addiction, transportation, low edu. Level, literacy, decrease access to med. care, assisted, rehab)? @ -No Was there de-escalation of care discussed even if they declined (Discuss DNR or withdrawal of care, Hospice)? DNR status @ -No What co-morbidities impacted this encounter? (DM, HTN, Smoking, COPD, CAD, Cancer, CVA, ARF, Chemo, Hep., AIDS, mental health diagnosis, sleep apnea, morbid obesity)? @ -None Was patient admitted / discharged? Hospital course, mention meds given and route, prescriptions, significant lab abnormalities, going to OR and other pertinent info. @ -Patient's CT scan was normal. Patient had no other complaints skin tear was Steri-Stripped down by nursing. Undiagnosed new problem with uncertain prognosis? @ -No Drug Therapy requiring intensive monitoring for toxicity (Heparin, Nitro, Insulin, Cardizem)? @ -No Were any procedures done? @ -No Diagnosis/symptom? @ -Head injury Acute, or Chronic, or Acute on Chronic? @ -Acute Uncomplicated (without systemic symptoms) or Complicated (systemic symptoms)? @ -Uncomplicated Side effects of treatment? @ -No Exacerbation, Progression, or Severe Exacerbation? @ -No Poses a threat to life or bodily function? How? (Chest pain, [place], [place], pneumonia, PE, COPD, DKA, ARF, appy, cholecystitis, CVA, Diverticulitis, Homicidal, Suicidal, threat to staff... and all critical care pts) @ -No Disposition Clinical Impression: Fall, Head injury, Skin tear of forearm without complication Disposition: HOME SELF-CARE Condition: Good Instructions (If sedation given, give patient instructions): Fall Prevention for Older Adults (ED), Head Injury (ED) Additional Instructions: Patient should return with his any altered mental status or any new symptoms. Is patient prescribed a controlled substance at d/c from ED?: No Referrals: Teodoro Arrington MD [Primary Care Provider] - 1-2 days Time of Disposition: 11:27
--- NOTE | 2024-06-29 11:22 | CT ---
EXAMINATION TYPE: CT brain cspine wo con DATE OF EXAM: 06/29/2024 11:05 AM COMPARISON: None. CLINICAL INDICATION: Female, 79 years old with history of Trauma, Fall on thinners; CODE COAG, pain TECHNIQUE: CT of the brain is performed utilizing 3 mm thick sections through the posterior fossa and 3 mm thick sections through the remaining calvarium. Study is performed within 24 hours of arrival to the hospital. Contrast used: mL of , (none if empty) CT DLP: 1299.5 mGycm, Automated exposure control for dose reduction was used. FINDINGS: No abnormal hyperdensity is present to suggest an acute intracranial hemorrhage. No mass lesion is evident. No acute infarcts are evident. Mild periventricular white matter hypodensity may be present likely o n basis of chronic white matter ischemic changes. Ventricles and sulci are prominent for the patient age. Paranasal sinuses and mastoid air cells within the olgys-fo-bdag are clear. IMPRESSIONS: 1. No acute intracranial process. Follow-up MRI can be performed as clinically indicated. 2. Atrophy with mild chronic appearing periventricular white matter ischemic changes CT cervical spine. COMPARISON: None TECHNIQUE: CT of the cervical spine is performed in the axial plane at 2 mm thick sections. Reconstr ucted images in the coronal, and sagittal plane are reviewed on the computer. FINDINGS: No acute fractures are evident. Vertebral body alignment is normal. Disc heights are preserved. Vertebral body heights are preserved. C5-C6 Endplate spurring has moderate anterior thecal sac compression. AP spinal canal stenosis is pre sent at this level. Left foraminal stenosis from uncovertebral joint hypertrophy and facet hypertrophy is present C3-4. R ight foraminal stenosis from uncovertebral joint hypertrophy is present. Bilateral foraminal narrowin g is present C5-6. Some right sided foraminal stenosis is present at C6-7. IMPRESSION: 1. No acute osseous abnormality radiographically apparent. 2. Endplate spurring C5-6 with moderate anterior thecal sac compression contributing to some mild AP spinal canal stenosis. 3. Multilevel foraminal narrowing discussed above from uncovertebral joint hypertrophy. [facility], , 06/29/2024 11:20 AM
[2024-06-29] MEDS: DIPH,PERTUS(ACELL)TETVAC-LF 0.5 ML VIAL IM ONE (11:47)
[2024-06-29 11:52] VITALS: BP 131/81; PULSE 64; TEMP 98.1
== END 2024-06-29 11:51 | disposition home or self-care (01) ==
LOC: EC 10:38
DX: S51.812A Laceration without foreign body of left forearm, initial encounter (principal); Z87.891 Personal history of nicotine dependence; Z23 Encounter for immunization; W18.39XA Other fall on same level, initial encounter; W22.09XA Striking against other stationary object, initial encounter
CPT/HCPCS: 70450; 72125; 90471; 90715; 99283